=== PATIENT | male | born 1950 | race Caucasian/White ===

== ENCOUNTER 2017-01-02 13:27 | Emergency (ER) | payer OTHER ==
[~2017-01-02] VITALS: Ht 188 cm; Wt 77.3 kg
[~2017-01-02 13:27] MED LIST: ALAVERT10 MG PO; ANTIVERT OR; ANTIVERT PO; ATENOLOL25 MG OR; AUGMENTIN875TAB PO; B-121000 MC1 PO; BENADRYL 50MG C50 MG OR; CAPOTEN25 MG OR; CAPOTEN50 MG PO; CEPHALEXIN500 MG OR; COLACE50 MG PO; CORTISPORIN OP7.5 ML OP; CYCLOBENZAPR10 MG PO; DILAUDID 2MG2 MG/TA1 PO; DILAUDID4 MG PO; DILTIAZEM30 MG PO; FIORICET OR; KLOR-CON M2020 MEQ PO; LORACET OR; LORCET PLUS1 TAB PO; LORTAB 10 OR; LORTAB 10 PO; LORTAB 7.57.5 MG OR; LORTAB 7.57.5 MG PO; MAG OXIDE420 MG OR; MAG-OX 400400 MG PO; MAGNESIUM30 M1 OR; PERCOCET 5/325M1 TAB OR; PERCOCET 5/325M1 TAB PO; PROMETHAZINE50 MG PO; PROTONIX40 M2 PO; SENNOSIDES8.6 M1 PO; TAM75CAP PO; TENORMIN25 MG OR; UNKNOWN MED; VALIUM5 MG OR; VALIUM5 MG PO; VICODIN HP1 TAB OR; VISTARIL50 MG OR; VISTARIL50 MG PO; ZESTRIL10 MG PO; ZITHROMAX250 MG PO
[2017-01-02 14:02] LABS: HEMATOCRIT 37.4 % (39.0-50.0); HEMOGLOBIN 12.1 g/dl (14.0-18.0); IMMATURE GRANULOCYTES 1.1 % (0.0-1.0); MEAN CELL VOLUME 87.6 fL CALC (80.0-100.0); MEAN CORPUSCULAR HGB 28.3 pG CALC (26.0-32.0); MEAN CORPUSCULAR HGB CONC 32.4 g/L CALC (32.0-36.0); NEUT# 3.6 thou/uL (1.82-7.42); RED BLOOD COUNT 4.27 mill/uL (4.70-6.10)
[2017-01-02 14:19] LABS: ALKALINE PHOSPHATASE 72 u/l (38-126); ANION GAP 15 (6-22 (CALC)); BILIRUBIN, TOTAL 0.7 mg/dL (0.0-1.4); BUN 9 mg/dL (8-23); BUN/CREATININE RATIO 11 (12-20 (CALC)); CALCIUM 9.5 mg/dL (8.4-10.2); CARBON DIOXIDE 27 mmol/l (22-30); CHLORIDE 105 mmol/l (95-108); CREATININE 0.8 mg/dL (0.7-1.3); GFR > 60 ML/MIN (>=60 (CALC)); GFR FOR AFR.AMER. > 60 ML/MIN (>=60 (CALC)); GLUCOSE 85 mg/dL (82-115); POTASSIUM 4.4 mmol/l (3.5-5.1); SGOT/AST 18 u/l (19-48); SGPT/ALT 30 u/l (11-66); SODIUM 142 mmol/l (137-146); TOTAL PROTEIN 6.7 g/dL (6.3-8.2)
[2017-01-02 14:30] LABS: MYOGLOBIN 113 ng/mL (0 - 121)
[2017-01-02 15:32] LABS: URINE BILIRUBIN - DIPSTICK NEGATIVE (NEGATIVE); URINE BLOOD DIPSTICK NEGATIVE (NEGATIVE); URINE CLARITY CLEAR; URINE COLOR YELLOW; URINE GLUCOSE - DIPSTICK NEGATIVE (NEGATIVE); URINE KETONE NEGATIVE (NEGATIVE); URINE LEUK ESTERASE NEGATIVE (NEGATIVE); URINE NITRITE - DIPSTICK NEGATIVE (Negative); URINE PH 5.5 (4.5-8.0); URINE PROTEIN - DIPSTICK NEGATIVE (NEG-TRACE); URINE SPECIFIC GRAVITY 1.015; URINE UROBILINOGEN - DIPSTICK 0.2 E.U./dL (0.2)
[2017-01-02 15:34] LABS: BARBITURATES NEGATIVE (NEGATIVE); COCAINE NEGATIVE (NEGATIVE); METHADONE NEGATIVE (NEGATIVE); OXCYCODONE POSITIVE (NEGATIVE); TETRAHYDROCANNABIONOL NEGATIVE (NEGATIVE); TRICYLIC ANTIDEPRESSANTS NEGATIVE (NEGATIVE)
[2017-01-02 15:45] VITALS: BP 97/54
== END 2017-01-02 16:37 | disposition home or self-care (01) | DRG 103 ==
LOC: ED 13:27
PROVIDERS: Emergency Medicine
DX: R51 Headache (principal); G20 Parkinson's disease; R42 Dizziness and giddiness; R53.1 Weakness

== ENCOUNTER 2017-02-06 04:46 | Emergency (ER) | payer OTHER ==
[~2017-02-06] VITALS: Ht 188 cm; Wt 70.0 kg
[2017-02-06] MEDS ORDERED: LORCET HD 10-321 TAB PO (05:07)
[2017-02-06 05:17] LABS: HEMATOCRIT 36.7 % (39.0-50.0); HEMOGLOBIN 12.2 g/dl (14.0-18.0); IMMATURE GRANULOCYTES 0.5 % (0.0-1.0); MEAN CELL VOLUME 86.2 fL CALC (80.0-100.0); MEAN CORPUSCULAR HGB 28.6 pG CALC (26.0-32.0); MEAN CORPUSCULAR HGB CONC 33.2 g/L CALC (32.0-36.0); NEUT# 6.8 thou/uL (1.82-7.42); RED BLOOD COUNT 4.26 mill/uL (4.70-6.10); RED CELL DISTRI WIDTH 13.2 % (11.5-15.5)
[2017-02-06 05:33] LABS: ALBUMIN 4.2 g/dL (3.2-5.0); ALKALINE PHOSPHATASE 68 u/l (38-126); AMYLASE < 30 u/l (30-110); ANION GAP 16 (6-22 (CALC)); BUN 10 mg/dL (8-23); BUN/CREATININE RATIO 16 (12-20 (CALC)); CARBON DIOXIDE 26 mmol/l (22-30); CHLORIDE 101 mmol/l (95-108); CREATININE 0.6 mg/dL (0.7-1.3); GFR > 60 ML/MIN (>=60 (CALC)); GFR FOR AFR.AMER. > 60 ML/MIN (>=60 (CALC)); GLUCOSE 135 mg/dL (82-115); LIPASE 40 u/l (23-300); POTASSIUM 3.8 mmol/l (3.5-5.1); SGOT/AST 21 u/l (19-48); SGPT/ALT 30 u/l (11-66); SODIUM 140 mmol/l (137-146); TOTAL PROTEIN 6.6 g/dL (6.3-8.2)
[2017-02-06 05:44] LABS: MYOGLOBIN 78 ng/mL (0 - 121)
[2017-02-06] MEDS ORDERED: [UNRECOGNIZED DRUG - REMARK] PO (06:22)
[2017-02-06] MEDS ORDERED: PHENERGAN25 MG/TAB PO (08:29)
[2017-02-06 08:46] VITALS: BP 144/79
== END 2017-02-06 09:01 | disposition home or self-care (01) | DRG 103 ==
LOC: ED 04:46
PROVIDERS: Emergency Medicine
DX: R51 Headache (principal); R11.2 Nausea with vomiting, unspecified; Z98.890 Other specified postprocedural states; R94.31 Abnormal electrocardiogram [ECG] [EKG]

== ENCOUNTER 2017-07-25 11:49 | Inpatient (IN) | payer MEDICAID ==
[~2017-07-25] VITALS: Ht 188 cm; Wt 69.0 kg
[~2017-07-25 11:49] MED LIST changes: +LORCET HD 10-321 TAB PO; +PHENERGAN25 MG/TAB PO; +[UNRECOGNIZED DRUG - REMARK] PO
--- NOTE | 2017-07-25 11:56 | NUR ---
PT TO ROOM 14 VIA EMS.
[2017-07-25 12:37] LABS: HEMATOCRIT 36.7 % (39.0-50.0); HEMOGLOBIN 11.9 g/dl (14.0-18.0); IMMATURE GRANULOCYTES 0.3 % (0.0-1.0); MEAN CELL VOLUME 87.6 fL CALC (80.0-100.0); MEAN CORPUSCULAR HGB 28.4 pG CALC (26.0-32.0); MEAN CORPUSCULAR HGB CONC 32.4 g/L CALC (32.0-36.0); NEUT# 4.01 thou/uL (1.82-7.42); RED BLOOD COUNT 4.19 mill/uL (4.70-6.10); RED CELL DISTRI WIDTH 13.9 % (11.5-15.5)
[2017-07-25 12:47] LABS: ALBUMIN 3.6 g/dL (3.2-5.0); ALKALINE PHOSPHATASE 79 u/l (38-126); ANION GAP 16 (6-22 (CALC)); BILIRUBIN, TOTAL 0.9 mg/dL (0.0-1.4); BUN 11 mg/dL (8-23); BUN/CREATININE RATIO 20 (12-20 (CALC)); CARBON DIOXIDE 27 mmol/l (22-30); CHLORIDE 103 mmol/l (95-108); CREATININE 0.6 mg/dL (0.7-1.3); GFR > 60 ML/MIN (>=60 (CALC)); GFR FOR AFR.AMER. > 60 ML/MIN (>=60 (CALC)); GLUCOSE 114 mg/dL (82-115); POTASSIUM 4.1 mmol/l (3.5-5.1); SGOT/AST 16 u/l (19-48); SGPT/ALT 26 u/l (11-66); SODIUM 142 mmol/l (137-146); TOTAL PROTEIN 6.3 g/dL (6.3-8.2)
[2017-07-25 12:58] LABS: MYOGLOBIN 47 ng/mL (0 - 121)
[2017-07-25] MEDS ORDERED: HYDROXYZ PAM25 MG PO (14:27)
[2017-07-25] MEDS ORDERED: ROPINIROLE0.5 MG PO (14:30)
[2017-07-25 16:04] LABS: URINE BILIRUBIN - DIPSTICK NEGATIVE (NEGATIVE); URINE BLOOD DIPSTICK NEGATIVE (NEGATIVE); URINE COLOR YELLOW; URINE GLUCOSE - DIPSTICK NEGATIVE (NEGATIVE); URINE KETONE TRACE mg/dL (NEGATIVE); URINE LEUK ESTERASE NEGATIVE (NEGATIVE); URINE NITRITE - DIPSTICK NEGATIVE (Negative); URINE PROTEIN - DIPSTICK NEGATIVE (NEG-TRACE); URINE SPECIFIC GRAVITY 1.015; URINE UROBILINOGEN - DIPSTICK 0.2 E.U./dL (0.2)
[2017-07-25 16:12] LABS: URINE CLARITY CLEAR
--- NOTE | 2017-07-25 16:25 | NUR ---
SBAR PRINTED TO FLOOR
[2017-07-25 17:12] VITALS: BP 118/68
--- NOTE | 2017-07-25 17:17 | NUR ---
PT TAKEN TO ROOM 282 WITHOUT INCIDENT, REPORT WAS TO BARBI MORAN.
--- NOTE | 2017-07-25 17:19 | NUR ---
PT ARRIVED VIA STRETCHER ACCOMPANIED BY STAFF. PEG TUBE IN PLACE. IV SITE IN PLACE SKIN TEAR ON RAC . COVERED WITH OPSITE. PT TOLERATED WWLL.
--- NOTE | 2017-07-25 17:25 | NUR ---
ME [phone]
--- NOTE | 2017-07-25 17:30 | NUR ---
ASSESSMENT IS COMPLETED: PT HAS A SKIN TEAR ON RAC COVERED WITH TEGEDERM. IV SITE IN RH. PEG TUBE IN PLACE. SMALL ECCYMOTIC SPOTS ON SKIN. WAS JUST DISCHARGED FROM [facility] YESTERDAY WITH NEW TUBE FEEDING. PT STATES" THE 2 MACHINES I HAD AT HOME DOESNT WORK RIGHT ". CONTINUE TO OSBERVE AND MONITOR.
[2017-07-25 19:50] VITALS: BP 107/67
--- NOTE | 2017-07-25 20:50 | NUR ---
PT RESTING IN BED COMPLAINING OF RIGHT FOOT AND HEAD PAIN,REQUESTING PAIN MEDICATION;PT MEDICATED WITH 2MG OF MORPHINE IVP FOR PAIN RATING 9/10 ON THE PAIN SCALE;RESPIRATIONS EVEN AND UNLABORED ON RA;SEIZURE PRECAUTIONS IN PLACE;EMS #22G TO RIGHT HAND FLUSHED AND PATENT;PEG TUBE PATENT WITH CONTINUIOUS FEEDING INFUSING @ 85ML/HR;PT TOLERATING WELL;SKIN INTACT;PT A&O X3;RESPIRATIONS EVEN AND UNLABORED ON RA;SAFETY PRECAUTIONS REINFORCED;PT DENIES ANY OTHER NEEDS AT THIS TIME;CALL LIGHT IN REACH;WILL CONTINUE TO MONITOR
[2017-07-25 23:20] VITALS: BP 116/70
--- NOTE | 2017-07-26 01:08 | NUR ---
PT COMPLAINS OF PAIN TO RIGHT FOOT RATING 8/10 ON THE PAIN SCALE AND REQUESTS PAIN MEDICATION;PT MEDICATED WITH PRN MORPHINE 2MG IVP;LR INFUSING @ 100ML/HR WELL;PEG TUBE IN PLACE;PT RE-POSITIONED IN BED FOR COMFORT;CALL LIGHT IN REACH;WILL CONTINUE TO MONITOR
--- NOTE | 2017-07-26 04:40 | NUR ---
PT RESTING IN HIGH FOWLERS POSITION;NO S/S OF DISTRESS NOTED;PEG TUBE IN PLACE WITH CONTINUOUS FEEDING RUNNING AT 85ML/HR;FALL PRECAUTIONS IN PLACE;WILL CONTINUE TO MONITOR
[2017-07-26 04:41] VITALS: BP 105/64
--- NOTE | 2017-07-26 06:08 | NUR ---
PT COMPLAINS OF HEADACHE PAIN RATING 9/10 ON THE PAIN SCALE AND REQUESTS PAIN MEDICATION;MD TO BE NOTIFIED
--- NOTE | 2017-07-26 07:27 | NUR ---
SHIFT CHANGE REPORT FROM FABIOLA PT AWAKE AND ALERT, C/O ACHING HEADACHE @ 9, ASSISTED WITH BR PREVILAGES AND BACK TO BED, PEG TUBE IN PLACE WITH JEVITY INFUSING @ 85 ML/HR & 30 ML FLUSH Q4 HR, IVF INFUSING @ 100 ML PER HR, ALL NEEDS ADDRESSED, CALL TOLBERT IN REACH.
[2017-07-26 08:57] VITALS: BP 119/64
--- NOTE | 2017-07-26 09:44 | NUR ---
AT 0715 PT C/O GENERALISED BODY PAIN (HEAD, SHOULDERS, LEGS). ULTRAM WAS ORDERED BUT PT STATED HE DOES NOT THAT MED IT WILL MAKE HIM SICK, WHEN ASKED WHAT MED HE WOULD RATHER HAVE HE REPORTED HYDROCODONE 10MG DOSE. ASSISTANT CREDIT MANAGER NOTIFIED AND WILL REVIEW MEDS. PT OFFERED COLD COMPRESS BUT REFUSED AND ASKED TO HAVE THE ULTRAM. PT APPEARS DEPRESSED AND DEMOTIVATED, VERY NEEDY, ADVISED TO HELP SELF AND GIVEN OPPORTUNITY TO ASSIST WITH CARE. WILL CONTINUE TO MONITOR.
[2017-07-26 09:57] LABS: HEMATOCRIT 33.2 % (39.0-50.0); HEMOGLOBIN 10.6 g/dl (14.0-18.0); IMMATURE GRANULOCYTES 0.2 % (0.0-1.0); MEAN CELL VOLUME 89.7 fL CALC (80.0-100.0); MEAN CORPUSCULAR HGB 28.6 pG CALC (26.0-32.0); MEAN CORPUSCULAR HGB CONC 31.9 g/L CALC (32.0-36.0); NEUT# 2.88 thou/uL (1.82-7.42); RED BLOOD COUNT 3.7 mill/uL (4.70-6.10)
[2017-07-26 10:41] LABS: ANION GAP 13 (6-22 (CALC)); BUN 13 mg/dL (8-23); BUN/CREATININE RATIO 23 (12-20 (CALC)); CALCIUM 8.8 mg/dL (8.4-10.2); CARBON DIOXIDE 30 mmol/l (22-30); CHLORIDE 102 mmol/l (95-108); CREATININE 0.6 mg/dL (0.7-1.3); GFR > 60 ML/MIN (>=60 (CALC)); GFR FOR AFR.AMER. > 60 ML/MIN (>=60 (CALC)); GLUCOSE 97 mg/dL (82-115); MAGNESIUM 1.7 mg/dL (1.6-2.3); POTASSIUM 4.2 mmol/l (3.5-5.1); SODIUM 141 mmol/l (137-146)
--- NOTE | 2017-07-26 12:34 | NUR ---
ASSISTED WITH URINAL AND BACK TO BED, FEEDING & FLUSH BAGS CHANGED. PT STILL REQUESTING HYDROCODONE 10MG AND INFORMED MEDICAL STAFF ARE REVIEWING MEDS AT THIS TIME AND WILL ADDRESS CONCERNS.
--- NOTE | 2017-07-26 15:52 | NUR ---
ALL NEEDS ADDRESSED, PAIN CONTROLLED WITH LORTAB, RESTING IN BED, CALL TOLBERT IN REACH.
[2017-07-26 16:10] VITALS: BP 111/63
--- NOTE | 2017-07-26 18:23 | NUR ---
TEAR TO RAC WITH OPSITE DRESING AND BLOODY DRAINAGE TRAPPED, PT REPORTED HAD TAPE DRESSING WHICH WAS PARTIALLY HANGING AND ED NURSE YANKED OFF WHICH RESULTED IN TEAR. DRESSING REMOVED AT THIS TIME, WOUND CLEANED AND NEW DRESSING APPLIED.
[2017-07-26 18:50] VITALS: BP 111/64
--- NOTE | 2017-07-26 20:25 | NUR ---
PT RESTING IN SEMI FOWLERS POSITION;PT COMPLAINS OF GENERALIZED PAIN RATING 6/10 ON THE PAIN SCALE;PT EDUCATED ON PAIN MEDICATION SCHEDULED AND VERBALIZES UNDERSTANDING;ASSESSMENT COMPLETED;PT VOIDED 300CC OF CLEAR/YELLOW URINE;PT RE-POSITIONED INTO BED;SEIZURE PRECAUTIONS IN PLACE;EMS #22G TO LEFT HAND INFUSING LR @ 100ML/HR WELL;PT EDUCATED ON EMS SITE EXPIRATION DATE AND REFUSES SITE CHANGE AT THIS TIME STATING "IT WORKS DOESNT IT?";DRESSING TO RIGHT FOREARM CDI;PEG TUBE PATENT WITH JEVITY INFUSING @ 65ML/HR,PT TOLERATING WELL;PT DENIES ANY OTHER NEEDS AT THIS TIME;FALL PRECAUTIONS IN PLACE WITH CALL LIGHT IN REACH;WILL CONTINUE TO MONITOR
--- NOTE | 2017-07-26 22:15 | NUR ---
PT REQUESTS PAIN MEDICATION;UPON ENTERING THE ROOM PT IS ASLEEP;WILL CONTINUE TO MONITOR
--- NOTE | 2017-07-26 22:30 | NUR ---
PT MEDICATED WITH PRN LORTAB FOR GENERALIZED PAIN RATING 9/10 ON THE PAIN SCALE;PT RE-POSITIONED IN BED;WILL CONTINUE TO MONITOR FOR EFFECT
[2017-07-27] VITALS: BP 110/56
--- NOTE | 2017-07-27 | NUR ---
INITIAL TELE READING PER ORDER OF SB 59
--- NOTE | 2017-07-27 00:35 | NUR ---
PT APPEARS TO BE SLEEPING IN SEMI FOWLERS POSITION;NO S/S OF DISTRESS NOTED;RESPIRATIONS EVEN AND UNLABORED ON RA;IV FLUIDS INFUSING WELL TO RIGHT HAND;PEG TUBE PATENT AND INFUSING WELL AT 65ML/HR;FALL PRECAUTIONS IN PLACE WITH CALL LIGHT IN REACH;WILL CONTINUE TO MONITOR
[2017-07-27 03:40] VITALS: BP 110/66; BP 117/61
--- NOTE | 2017-07-27 03:40 | NUR ---
PT REQUESTING PAIN MEDICATION FOR GENERALIZED PAIN OF THE HEAD,LEGS AND BACK RATING 8/10 ON THE PAIN SCALE;PT MEDICATED WITH PRN LORTAB 1 COMBO;TELE MONITOR IN PLACE;RESPIRATIONS EVEN AND UNLABORED ON RA;PT TOLERATING CONTINUOUS TUBE FEEDING WELL;IV SITE PATENT AND FREE FROM EDEMA;PT DENIES ANY OTHER NEEDS AT THIS TIME AND IS EDUCATED TO CALL FOR ASSISTANCE IF NEEDED;CALL LIGHT IN REACH;WILL CONTINUE TO MONITOR
[2017-07-27 07:11] VITALS: BP 100/60
--- NOTE | 2017-07-27 07:45 | NUR ---
ASSESSMENT IS COMPLETED: IV SITE IS FREE FROM REDNESS OR EDEMA. TELE MONITOR IN PLACE. TUBE FEEDING IN PLACE AND INFUSING WELL FLUSHES WELL WITH WATER. CONTINUE TO OBSERVE AND MONITOR.
--- NOTE | 2017-07-27 12:00 | NUR ---
PT IS RELAXING IN BED WITH NO DISTRESS NOTED. IV SITE IS FREE FROM REDNESS OR EDEMA.
--- NOTE | 2017-07-27 16:00 | NUR ---
pt is relaxing in bed with no distress noted. iv site is free from redness or edema. feeding tube in place jevity infusing. pt tolerating well. continue to observe and monitor.
[2017-07-27 16:47] VITALS: BP 105/65
[2017-07-27 19:30] VITALS: BP 102/62
--- NOTE | 2017-07-27 20:30 | NUR ---
PT RESTING IN SEMI FOWLERS POSITION WATCHING TV;PT COMPLAINS OF GENERALIZED PAIN TO THE HEAD AND FEET RATING 6/10 ON THE PAIN SCALE AND REQUESTS PRN PAIN MEDICATION;PT MEDICATED WITH PRN ULTRAM;RESPIRATIONS EVEN AND UNLABORED ON RA;EMS #22G TO RIGHT HAND INFUSING LR @ 100ML/HR;PT RE-EDUCATED TO IV SITE EXPIRATION DATE AND REFUSES CHANGE;TELE MONITOR IN PLACE;DRESSING TO RIGHT FOREARM CDI;PEG TUBE PATENT INFUSING JEVITY @ 65ML/HR,PT TOLERATING WELL;SEIZURE PRECAUTIONS IN PLACE;PT VOICES NO OTHER NEEDS AT THIS TIME;URINAL AT BEDSIDE;FALL PRECAUTIONS IN PLACE WITH CALL LIGHT IN REACH;WILL CONTINUE TO MONITOR
--- NOTE | 2017-07-28 00:05 | NUR ---
PT RESTING IN SEMI FOWLERS POSITION;PT VOICES NO COMPLAINTS OF PAIN AT THIS TIME;RESPIRATIONS EVEN AND UNLABORED ON RA;IV FLUIDS INFUSING WELL TO RIGHT HAND;PEG TUBE PATENT RUNNING CONTINUOUSLY AT 65ML/HR,PT TOLERATING WELL;PT EDUCATED TO CALL FOR ASSISTANCE IF NEEDED;ADDITIONAL BLANKET PROVIDED;CALL LIGHT IN REACH;WILL CONTINUE TO MONITOR
[2017-07-28 00:08] VITALS: BP 103/61
--- NOTE | 2017-07-28 01:40 | NUR ---
PT COMPLAINS OF GENERALIZED PAIN RATING 8/10 ON THE PAIN SCALE AND REQUESTS PAIN MEDICATION;PT MEDICATED WITH PRN LORTAB;WILL CONTINUE TO MONITOR
--- NOTE | 2017-07-28 04:00 | NUR ---
PT RESTING IN SEMI FOWLERS POSITION;URINAL EMPTIED OF 100CC OF CLEAR/YELLOW URINE;RESPIRATIONS EVEN AND UNLABORED;VS OBTAINED;PT VOICES NO COMPLAINTS AT THIS TIME;PEG TUBE FEEDING INFUSING WELL;TELE MONITOR IN PLACE;CALL LIGHT IN REACH;WILL CONTINUE TO MONITOR
[2017-07-28 04:01] VITALS: BP 96/52
--- NOTE | 2017-07-28 05:40 | NUR ---
PT HAD AN EPISODE OF INCONTINENCE;NEW LIN[facility] AND [facility] PROVIDED;PT COMPLAINS OF GENERALIZED PAIN RATING 7/10 ON THE PAIN SCALE AND REQUESTS PAIN MEDICATION;PT MEDICATED WITH PRN ULTRAM 50MG;DRESSING TO IV SITE CHANGED AT THIS TIME;PT RE-POSITIONED IN BED;PEG TUBE INFUSING JEVITY WELL;HOB IN SEMI FOWLERS POSITION;PT DENIES ANY OTHER NEEDS AT THIS TIME;WILL CONTINUE TO MONITOR
[2017-07-28 06:03] LABS: HEMATOCRIT 31.2 % (39.0-50.0); HEMOGLOBIN 9.8 g/dl (14.0-18.0); IMMATURE GRANULOCYTES 0.3 % (0.0-1.0); MEAN CELL VOLUME 89.1 fL CALC (80.0-100.0); MEAN CORPUSCULAR HGB CONC 31.4 g/L CALC (32.0-36.0); NEUT# 1.67 thou/uL (1.82-7.42); RED BLOOD COUNT 3.5 mill/uL (4.70-6.10); RED CELL DISTRI WIDTH 13.8 % (11.5-15.5)
[2017-07-28 06:17] LABS: ANION GAP 11 (6-22 (CALC)); BUN 13 mg/dL (8-23); BUN/CREATININE RATIO 22 (12-20 (CALC)); CALCIUM 8.5 mg/dL (8.4-10.2); CARBON DIOXIDE 31 mmol/l (22-30); CHLORIDE 104 mmol/l (95-108); CREATININE 0.6 mg/dL (0.7-1.3); GFR > 60 ML/MIN (>=60 (CALC)); GFR FOR AFR.AMER. > 60 ML/MIN (>=60 (CALC)); GLUCOSE 108 mg/dL (82-115); MAGNESIUM 1.7 mg/dL (1.6-2.3); POTASSIUM 4.3 mmol/l (3.5-5.1); SODIUM 142 mmol/l (137-146)
--- NOTE | 2017-07-28 07:23 | NUR ---
SHIFT CHANGE REPORT FROM FABIOLA, PT AWAKE AND ALERT, HAS MANY NEEDS WHICH HAVE ALL BEEN ADDRESSED, IVF INFUSING, GI FEED INFUSING, CALL TOLBERT IN REACH.
[2017-07-28 07:52] VITALS: BP 104/56
--- NOTE | 2017-07-28 11:03 | NUR ---
ASSISTED WITH BED BATH AND UP TO RECLINER AT THIS TIME, ALL NEEDS ADDRESSED, CALL TOLBERT IN REACH.
[2017-07-28 11:37] VITALS: BP 99/57
[2017-07-28 15:22] VITALS: BP 117/69
--- NOTE | 2017-07-28 16:21 | NUR ---
ASSISTED TO BSC AT THIS TIME, PAIN CONCERNS ADDRESSED, CALL TOLBERT IN REACH.
--- NOTE | 2017-07-28 17:18 | NUR ---
ASSISTED TO RECLINER FROM BSC, PT WANTS TO STAY IN BED ALL DAY AND IS NEEDY AND DEMOTIVATED, ENCOURAGED TO SIT UP FOR A WHILE AND INFORMED OF BENEFITS OF GETTING OOB, CALL TOLBERT IN REACH.
[2017-07-28 19:05] VITALS: BP 107/66
--- NOTE | 2017-07-28 19:15 | NUR ---
PT RESTING IN BED. VISITORS IN ROOM. PT IS ALERT AND ORIENTED X3. PERRLA. RESP ARE EVEN AND UNLABORED LUNGS ARE CLEAR. TELE IN PLACE. HR REGULAR. PULSES PALPABLE THROUGHOUT. MINIMAL EDEMA TO RIGHT ANKLE NOTED. BS ACTIVE. PT DENIES A BM. PEG TUB TO LEFT SIDE OF ABDOMEN INFUSING JEVITY 1.5@ 65CC/HR. #22 RAC INFUSING LR 2100CC/HR. NO REDNESS OR EDEMA NOTED AT SITE. WILL CONTINUE TO MONITOR.
--- NOTE | 2017-07-29 | NUR ---
PT RESTING IN BED WITH EYES CLOSED. AROUSES TO VERBAL STIMULI. RESP ARE EVEN AN UNLABORED. TELE IN PLACE. JEVITY INFUSING @65CC/HR. NO COMPLAINTS AT THIS TIME. WILL CONTINUE TO MONITOR
[2017-07-29 00:28] VITALS: BP 93/60
--- NOTE | 2017-07-29 04:06 | NUR ---
PT RESTING IN BED WITH EYES CLOSED. AROUSES TO VERBAL STIMULI. RESP ARE EVEN AND UNLABORED. TELE IN PLACE. JEVITY 1.5 INFUSING AT 65ML/HR. NO COMPLAINTS AT THIS TIME. WILL CONTINUE TO MONITOR.
[2017-07-29 04:15] VITALS: BP 99/58
--- NOTE | 2017-07-29 07:40 | NUR ---
SHIFT CHANGE REPORT FROM LEO, PT AWAKE AND ALERT, C/O ITCHY BACK, WHEN ASSESSED LINHAYLIEN WAS WET, PT WAS ASSISTED OOB FOR AM CARE, SET-UP FOR ORAL CARE, ALL NEEDS ADDRESSED, CALL TOLBERT IN REACH.
[2017-07-29 07:53] VITALS: BP 93/55
[2017-07-29 11:04] VITALS: BP 97/59
--- NOTE | 2017-07-29 11:35 | NUR ---
ASSISTED BACK TO BED AND RESTING, C/O HEADACHE @ 05/15 BUT REFUSED COOL COMPRESS, REPOSITIONED, WILL CONTINUE TO MONITOR.
[2017-07-29 15:24] VITALS: BP 90/55
--- NOTE | 2017-07-29 16:57 | NUR ---
RESTING IN BED AT THIS TIME, STATES HE HAS NOT BEEN FEELING WELL ALL DAY WHEN ENCOURAGED TO GET OOB AND SIT UP IN RECLINER FOR COUPLE HOURS. PT INFORMED AGAING OF BENEFITS OF GETTING UP AND HELPING SELF BUT HE JUST WANTS TO STAY IN BED CONTINUOUSLY AND HAVE SOMEONE ELSE PERFORM ALL ADLS EVEN IF HE IS ABLE TO DO THEM BY HIMSELF. WILL CONTINUE TO ENCOURAGE/EDUCATE EVEN IN FUTILITY.
[2017-07-29 19:05] VITALS: BP 98/64
--- NOTE | 2017-07-29 19:30 | NUR ---
PT SITTING UP IN BED TALKING ON PHONE. PT IS ALERT AND ORIENTED X3. PERRLA. RESP ARE EVEN AND UNLABORED. LUNGS ARE CLEAR. TELE IN PLACE. HR REGULAR. PULSES PALPABLE THROUGHOUT. NO EDEMA NOTED. BS ACTIVE. PT DENIES HAVING A BM TODAY. PEG TUBE IN PLACE INFUSING JEVITY 1.5 @65CC/HR. #22 RAC INFUSING LR @10CC/HR. NO REDNESS OR EDEMA NOTED AT SITE. PT STATES THAT HE IS HAVING PAIN. WILL MEDICATE PER MD ORDERS. WILL CONTINUE TO MONITOR
--- NOTE | 2017-07-29 22:26 | NUR ---
PT STATES THAT HE WANTS PAIN MEDICATION AGAIN. INFORMED PT THAT THE MEDICATION WAS NOT DUE AT THIS TIME. WILL CONTINUE TO MONITOR
--- NOTE | 2017-07-29 23:15 | NUR ---
PT REQUESTING PAIN MEDICATION. TRAMADOL OFFERRED. PT STATES THAT HE NEEDS THE LORTAB. EXPLAINED THAT IT WAS NOT TIME YET FOR LORTAB. WILL MEDICATE WHEN TIME. PT VERBALIZED UNDERSTANDING.
--- NOTE | 2017-07-30 00:14 | NUR ---
PT MEDICATED FOR PAIN. PT AWAKE WATCHING TV. RESP ARE EVEN AND UNLABORED. TELE IN PLACE. PT REFUSES TO USE BUTTONS ON BED TO LET HEAD OF BED DOWN AND UP. INSTRUCTED PT THAT HE IS ABLE TO DO THAT HIMSELF. PT CONTINUE TO REFUSE. WILL CONTINUE TO MONITOR
--- NOTE | 2017-07-30 03:38 | NUR ---
PT CONTINUES TO ASK FOR PAIN MEDICATION. WHEN I EXPLAINED THAT THERE WAS ANOTHER HOUR BEFORE LORTAB WAS DUE HE BEGAN TO CURSE. I AGAIN OFFERRED TRAMADOL. PT REFUSED.
[2017-07-30 04:14] VITALS: BP 86/52
--- NOTE | 2017-07-30 04:15 | NUR ---
MEDICATED PT FOR PAIN. PT WAS SLEEPING UPON ARRIVAL TO ROOM. AROUSED TO VERBAL STIMULI. RESP ARE EVEN AND UNLABORED. TELE IN PLACE. WILL CONTIUE TO MONITOR
--- NOTE | 2017-07-30 07:00 | NUR ---
RECEIVED BEDSIDE REPORT FROM LEO YANG. RESTING IN BED WITH EYES CLOSED, AWAKENS EASILY. RESPS EVEN AND UNLABORED ON ROOM AIR, TELE MONITOR IN PLACE. PEG TUBE PATENT, INFUSING JEVITY AT 65 CC/HR WITH 30 CC Q4HR FLUSH, DRESSING CDI. #22 RAC INFUSING WITHOUT DIFFICULTY, SITE APPEARS HEALTHY. REQUESTS PAIN MEDICINE FOR PAIN, BC MEDICATE PER MAR. PLAN OF CARE DISCUSSED. SAFETY PRECAUTIONS REINFORCED. BED IN LOWEST POSITION WITH WHEELS LOCKED. CALL LIGHT WITHIN REACH. ENCOURAGED PT TO CALL FOR ANY NEEDS.
[2017-07-30 08:44] VITALS: BP 98/53
--- NOTE | 2017-07-30 08:45 | NUR ---
RESTING IN SEMI FOWLERS POSITION. RESPS EVEN AND UNLABORED ON ROOM AIR, TELE MONITOR IN PLACE. PEG TUBE PATENT, JEVITY 1.5 INFUSING AT 65 CC/HR WITH Q4 HR 300CC FLUSHES. MEDICATED WITH LORTAB PO FOR C/O 9/10 HEADACHE. CALL LIGHT WITHIN REACH. ENCOURAGED PT TO CALL FOR ANY NEEDS.
--- NOTE | 2017-07-30 12:15 | NUR ---
DR HARMAN IN WITH PT, NEW ORDERS RECEIVED.
--- NOTE | 2017-07-30 12:35 | NUR ---
MEDIATED WITH LORTAB VIA PEG FOR C/O 910 HEADACHE. RESTING IN BED WITH HEAD ELEVATED. RESPS EVEN AND UNLABORED ON ROOM IAR, TELE MONITOR IN PLACE. WILL CONTINUE TO MONITOR.
[2017-07-30 13:05] VITALS: BP 100/57
[2017-07-30 15:56] VITALS: BP 87/53
--- NOTE | 2017-07-30 16:12 | NUR ---
RESTING IN BED WITH HOB ELEVATED. RESPS EVEN AND UNLABORED ON ROOM AIR, TELE MONITOR IN PLACE. VOICES NO NEEDS AT THIS TIME. CALL LIGHT WITHIN REACH.
--- NOTE | 2017-07-30 17:15 | NUR ---
MEDICATED WITH LORTAB VIA PEG TUBE FOR C/O 9 HEADACHE. PEG TUBE 30 CC RESIDUAL. PT TOLERATED WELL. CALL LIGHT WITHIN REACH.
--- NOTE | 2017-07-30 19:00 | NUR ---
PT SITTING UP IN BED TALKING ON THE PHONE. PT IS ALERT AND ORIENTED X3. PERRLA. PT STATES THAT HE IS HAVING PAIN. INFORMED PT THAT PAIN MEDICINE IS NOT DUE UNTIL 2114. PT VERBALIZED UNDERSTANDING. LUNGS ARE CLEAR. RESP ARE EVEN AND UNLABORED. TELE IN PLACE. HR REGULAR. PULSES PALPABLE THROUGHOUT. NO EDEMA NOTED. BS ACTIVE. PT DENIES A BM TODAY. JEVITY 1.2 INFUSING VIA PEG TUBE. REFILLED BAG. #22 RAC WITH LR @10CC/HR INFUSING. NO REDNESS OR EDEMA AT SITE. WILL CONTINUE TO MONITOR
[2017-07-30 19:07] VITALS: BP 96/57
--- NOTE | 2017-07-31 00:01 | NUR ---
PT RESTING IN BED WITH EYES CLOSED. AROUSES TO VERBAL STIMULI. RESP ARE EVEN AND UNLABORED. PT REQUESTS PAIN MEDICATION. INFORMED PT THAT IT IS TOO SOON FOR PAIN MEDICATION. WILL CONTINUE TO MONITOR
[2017-07-31 00:15] VITALS: BP 95/61
--- NOTE | 2017-07-31 01:00 | NUR ---
PT CALLED FOR PAIN MEDICATION. PT MEDICATED. PT STATES THAT PAIN IS A 9/10 IN HIS HEAD, BUT FEELS THAT THE MEDICATION IS NOT GIVING HIM LONG ENOUGH RELIEF. INSTRUCTED PT TO DISCUSS THIS WITH PHYSICIAN IN THE MORNING.
--- NOTE | 2017-07-31 04:00 | NUR ---
PT RESTING IN BED WITH EYES CLOSED. AROUSES TO VERBAL STIMULI.RESP ARE EVEN AND UNLABORED. PT CONTINUES TO REQUEST PAIN MEDICATION. INFORMED PT THAT IT WOULD STILL BE ANOTHER HOURS UNTIL DUE. TELE IN PLACE WILL CONTINUE TO MONITOR.
[2017-07-31 04:15] VITALS: BP 94/60
--- NOTE | 2017-07-31 06:10 | NUR ---
PT HAD LARGE BOWEL MOVEMENT.
[2017-07-31 06:31] LABS: HEMATOCRIT 34.6 % (39.0-50.0); HEMOGLOBIN 10.9 g/dl (14.0-18.0); MEAN CELL VOLUME 88.7 fL CALC (80.0-100.0); MEAN CORPUSCULAR HGB 27.9 pG CALC (26.0-32.0); MEAN CORPUSCULAR HGB CONC 31.5 g/L CALC (32.0-36.0); RED BLOOD COUNT 3.9 mill/uL (4.70-6.10); RED CELL DISTRI WIDTH 13.9 % (11.5-15.5)
[2017-07-31 06:47] LABS: ANION GAP 13 (6-22 (CALC)); BUN 18 mg/dL (8-23); BUN/CREATININE RATIO 29 (12-20 (CALC)); CALCIUM 8.9 mg/dL (8.4-10.2); CARBON DIOXIDE 30 mmol/l (22-30); CHLORIDE 103 mmol/l (95-108); CREATININE 0.6 mg/dL (0.7-1.3); GFR > 60 ML/MIN (>=60 (CALC)); GFR FOR AFR.AMER. > 60 ML/MIN (>=60 (CALC)); GLUCOSE 114 mg/dL (82-115); POTASSIUM 4.2 mmol/l (3.5-5.1); SODIUM 141 mmol/l (137-146)
--- NOTE | 2017-07-31 07:00 | NUR ---
RECEIVED BEDSIDE REPORT FROM LEO YANG. RESTING IN BED WITH HOB ELEVATED. RESPS EVEN AND UNLABORED ON ROOM AIR, TELE MONITOR IN PLACE. JEVITY INFUSING VIA PEG TUBE AT 65CC/HR WITH FLUSHES Q4HR AT 30CC/HR. VOICES NO NEEDS AT THIS TIME. PLAN OF CARE DISCUSSED. SAFETY PRECAUTIONS REINFORCED. BED IN LOWEST POSITION WITH WHEELS LOCKED. CALL LIGHT WITHIN REACH. ENCOURAGED PT TO CALL FOR ANY NEEDS.
[2017-07-31 09:38] VITALS: BP 115/55
--- NOTE | 2017-07-31 09:45 | NUR ---
MEDICATED WITH LORTAB VIA PEG TUBE FOR C/O 6/10 HEADACHE. MINIMAL RESIDUAL ASPIRATED, PEG TUBE INFUSING JEVITY AT 65CC/HR WITH 30CC WATER FLUSH Q4HR. PT TOLERATED WELL. CALL LIGHT WITHIN REACH. WILL CONTINUE TO MONITOR.
[2017-07-31 11:22] VITALS: BP 102/60
--- NOTE | 2017-07-31 11:50 | NUR ---
SITTING IN BEDSIDE RECLINER. RESPS EVEN AND UNLABORED ON ROOM AIR, TELE MONITO RIN PLACE. DR HARMAN IN WITH PT, AWAITING NEW ORDERS . CALL LIGHT WITHIN REACH.
--- NOTE | 2017-07-31 14:00 | NUR ---
RESTING IN BED WITH HOB ELEVATED. RESPS EVEN AND UNLABORED ON ROOM AIR, TELE MONITOR IN PLACE. MEDICATED WITH LORTAB VIA PEG TUBE FOR C/O 10/10 HEADACHE. MINIMAL RESIDUAL FROM PEG TUBE, JEVITY INFUSING AT 65CC/HR WITH WATER FLUSH AT 30CC Q4HRS. FAMILY AT BEDSIDE. CALL LIGHT WITHIN REACH. WILL CONTINUE TO MONITOR.
[2017-07-31 15:44] VITALS: BP 111/66
--- NOTE | 2017-07-31 18:00 | NUR ---
MEDICATED WITH LORTAB VIA PEG TUBE, 20CC RESIDUAL. JEVITY RUNNING AT 65CC/HR WITH 30CC WATER FLUSH. HEAD OF BED ELEVATED. BILAT HEELS PROPPED ON PILLOWS, ELEVATING FEET OFF OF BED. CALL LIGHT WIHTIN REACH. WILL CONTINUE TO MONITOR.
--- NOTE | 2017-07-31 19:00 | NUR ---
PT SITTING UP IN BED WATCHING TV. PT IS ALERT AND ORIENTED X3. PERRLA. RESP ARE EVEN AND UNLABORED. LUNGS ARE CLEAR. TELE IN PLACE. HR REGULAR. PULSES PALPABLE THROUGHOUT. NO EDEMA NOTED. BS ACTIVE. PT REPORTS A BM TODAY. HEEL SLIGHTLY RED. HEEL PROTECTOS IN PLACE. INSTRUCTED PT TO NOT CROSS LEGS THAT INCREASES PRESSURE AND FRICTION.PT VERBALIZED UNDERSTANDING. PEG TUBE INFUSING JEVITY 1.2 @65ML/HR. #22 RAC WITH LR @10CC/HR INFUSING. NO REDNESS OR EDEMA NOTED. WILL CONTINUE TO MONITOR
[2017-07-31 19:10] VITALS: BP 104/59
--- NOTE | 2017-07-31 21:30 | NUR ---
[place] BAG CHANGES AND REFILLED. PAIN MEDS GIVEN. BATH GIVEN TO PT.
--- NOTE | 2017-08-01 | NUR ---
PT RESTING IN BED WITH EYES CLOSED. AROUSES TO VERBAL STIMULI. RESP ARE EVEN AND UNLABORED. PT REQUESTING HIS PAIN PILL. REINFORCED WITH PT THAT THE MEDICATION IS NOT DUE AT THIS TIME. TELE IN PLACE WILL CONTINUE TO MONITOR
[2017-08-01 00:08] VITALS: BP 97/59
--- NOTE | 2017-08-01 04:00 | NUR ---
PT RESTING IN BED WITH EYES CLOSED. AROUSES TO VERBAL STIMULI.RESP ARE EVEN AND UNLABORED. TELE IN PLACE. WILL CONTINUE TO MONITOR
[2017-08-01 04:18] VITALS: BP 110/65
--- NOTE | 2017-08-01 07:00 | NUR ---
RECEIVED BEDSIDE REPORT FROM LEO YANG. RESTING IN BED WITH HOB ELEVATED. RESPS EVEN AND UNLABORED ON ROOM AIR, TELE MONITOR IN PLACE. #22 RAC INFUSING WITHOUT DIFFICULTY, SITE APPEARS HEALTHY. JEVITY INFUSING AT 65CC/HR WITH 30CC WATER FLUSH Q4HR VIA PEG TUBE. HEEL PROTECTORS TO BILAT FEET ELEVATED ON PILLOWS. VOICES NO NEEDS AT THIS TIME. PLAN OF CARE DISCUSSED. SAFETY PRECAUTIONS REINFORCED. BED IN LOWEST POSITION WITH WHEELS LOCKED. CALL LIGHT WITHIN REACH. WILL CONTINUE TO MONITOR.
[2017-08-01 08:13] VITALS: BP 104/49
--- NOTE | 2017-08-01 09:55 | NUR ---
SITTING IN BEDSIDE CHAIR. RESPS EVEN AND UNLABORED ON ROOM AIR, TELE MONITOR IN PLACE. C/O /10 HEADACHE, MEDICATED WITH LORTAB VIA PEG TUBE. 20CC RESIDUAL, JEVITY INFUSING AT 65CC/HR WITH 30CC WATER FLUSHQ 4HR. FAMILY AT BEDSIDE. DR HARMAN IN WITH PT. CALL LIGHT WITHIN REACH. WILL CONTINUE TO MONITOR.
[2017-08-01 11:58] VITALS: BP 100/60
--- NOTE | 2017-08-01 14:00 | NUR ---
MEDIACTED WITH LORTAB VIA PEG TUBE FOR C/O 04/14 HEADACHE.
[2017-08-01 15:51] VITALS: BP 91/52
--- NOTE | 2017-08-01 16:46 | NUR ---
Talked to pt. about new medications. He had questions about some medications that he is currently on include ropinirole and diazepam. Told patient about ropinirole for his parkinson and counseling point for this medication. Told patient about the diazepam for his anxiety and counseled him possible side effects. Pt. reported that he does not experience any allergies from his current medications. He did not have any other questions at this time.
--- NOTE | 2017-08-01 18:00 | NUR ---
MEDICATED WITH LORTAB VIA PEG TUBE, 20CC RESIDUAL. JEVITY INFUSING AT 65CC/HR WITH 30CC WATER FLUSH Q4HRS. TOLERATED WELL. CALL LIGHT WITHIN REACH.
--- NOTE | 2017-08-01 19:00 | NUR ---
REPORT RECIEVED FROM TREY AGUERO. PT RESTING IN BED WATHCING TV. PT HAS NO COMPLAINTS OF PAIN AT THIS TIME. PEG TUBE PATENT. IV PATENT. SAFETY PRECAUTIONS REINFORCED. CALL LIGHT WITHIN REACH. WILL CONTINUE TO MONITOR.
[2017-08-01 20:30] VITALS: BP 110/55
--- NOTE | 2017-08-01 21:37 | NUR ---
PEG TUBE BAGS AND TUBING CHANGED AT THIS TIME. SCHEDULED MEDICATION GIVEN AT THIS TIME. VERIFIED TUBE PLACEMENT VIA AUSCULTATION 30CC OF AIR INSTILLED. PT TOLERATED WELL. HEAD OF BED REMAINS ELEVATED AT 30 DEGREES. CALL LIGHT WITHIN REACH. WILL CONTINUE TO MONITOR.
--- NOTE | 2017-08-02 01:15 | NUR ---
PT REPOSITIONED ON RIGHT SIDE. HEAD OF BED ELEVATED 30 DEGREES. PEG FLUSHED AT THIS TIME. PT TOLERATED WELL. CALL LIGHT WITHIN REACH. WILL CONTINUE TO MONITOR.
[2017-08-02 04:16] VITALS: BP 91/49
--- NOTE | 2017-08-02 04:25 | NUR ---
IV TUBING CHANGED,IV PATENT. NO COMPLAINTS OF PAIN FROM PT AT THIS TIME. PT VOIDED 150CC CLEAR YELLOW URINE IN URINAL. HEAD OF BED ELEVATED 30 DEGREES. WILL CONTINUE TO MONITOR.
[2017-08-02 06:32] LABS: HEMATOCRIT 33.4 % (39.0-50.0); HEMOGLOBIN 10.8 g/dl (14.0-18.0); IMMATURE GRANULOCYTES 0.3 % (0.0-1.0); MEAN CELL VOLUME 88.6 fL CALC (80.0-100.0); MEAN CORPUSCULAR HGB 28.6 pG CALC (26.0-32.0); MEAN CORPUSCULAR HGB CONC 32.3 g/L CALC (32.0-36.0); NEUT# 2.11 thou/uL (1.82-7.42); RED BLOOD COUNT 3.77 mill/uL (4.70-6.10); RED CELL DISTRI WIDTH 13.9 % (11.5-15.5)
[2017-08-02 06:49] LABS: ANION GAP 13 (6-22 (CALC)); BUN 18 mg/dL (8-23); BUN/CREATININE RATIO 27 (12-20 (CALC)); CALCIUM 8.9 mg/dL (8.4-10.2); CARBON DIOXIDE 29 mmol/l (22-30); CHLORIDE 104 mmol/l (95-108); CREATININE 0.6 mg/dL (0.7-1.3); GFR > 60 ML/MIN (>=60 (CALC)); GFR FOR AFR.AMER. > 60 ML/MIN (>=60 (CALC)); GLUCOSE 98 mg/dL (82-115); MAGNESIUM 1.8 mg/dL (1.6-2.3); POTASSIUM 4.2 mmol/l (3.5-5.1); SODIUM 142 mmol/l (137-146)
--- NOTE | 2017-08-02 07:44 | NUR ---
SHIFT CHANGE REPORT FROM SELINA, PT AWAKE AND ALERT SITTING UP IN RECLINER PERFORMING ORAL CARE, TUBE FEED INFUSING, IVF INFUSING, TELE MONITOR IN PLACE. C/O PAIN @ 03/14 AND REQUESTING PAIN MED AT THIS TIME, REMINDED OF LAST TIME HE HAD MED AND INFORMED OF NEXT TIME HE CAN HAVE IT. CALL TOLBERT IN REACH, WILL CONTINUE TO MONITOR.
[2017-08-02 09:10] VITALS: BP 104/60
[2017-08-02 11:38] VITALS: BP 113/68
--- NOTE | 2017-08-02 12:33 | NUR ---
RESTING IN BED AT THIS TIME, STATES HEADACHE IS BETTER BUT NOT GONE AWAY, ALL NEEDS ADDRESSED, CALL TOLBERT IN REACH.
[2017-08-02 15:41] VITALS: BP 112/63
--- NOTE | 2017-08-02 16:00 | NUR ---
ASSISTED OOB TO RECLINER, ALL NEEDS ADDRESSED, CALL TOLBERT IN REACH.
[2017-08-02 18:54] VITALS: BP 132/75
--- NOTE | 2017-08-02 19:10 | NUR ---
REPORT RECIEVED FROM TERY PALACIO. PT AWAKE AND RESTING IN BED WATCHING TV. NO ACUTE SIGNS OF DISTRESS NOTED. RESP EVEN AND UNLABORED. PEG PATENT. IV PATENT. TELE IN PLACE. SAFETY PRECAUTIONS REINFORCED. PT INSTRUCTED TO CALL FOR ASSISTANCE. CALL LIGHT WITHIN REACH. WILL CONTINUE TO MONITOR.
[2017-08-02 19:35] VITALS: BP 106/61
--- NOTE | 2017-08-02 23:40 | NUR ---
IV CHANGE DUE. IV PATENT. PT STATES HE DOES NOT WANT THE IV CHANGED. WILL CONTINUE TO MONITOR. CALL LIGHT WITHIN REACH.
[2017-08-03 00:10] VITALS: BP 91/52
--- NOTE | 2017-08-03 00:38 | NUR ---
PT APPEARS TO BE ASLEEP, RESTING WITH EYES CLOSED IN BED. NO SIGNS OF DISTRESS NOTED. TELE IN PLACE. IV PATENT. WILL CONTINUE TO MONITOR.
--- NOTE | 2017-08-03 03:25 | NUR ---
NEW BAG OF [place] SANCHES. IV PATENT. DOUGLAS MCKEON. PEG PATENT. TELE IN PLACE. CALL LIGHT WITHIN REACH.
[2017-08-03 03:27] VITALS: BP 91/55
[2017-08-03 06:09] LABS: ANION GAP 14 (6-22 (CALC)); BUN 19 mg/dL (8-23); BUN/CREATININE RATIO 30 (12-20 (CALC)); CALCIUM 8.9 mg/dL (8.4-10.2); CARBON DIOXIDE 28 mmol/l (22-30); CHLORIDE 103 mmol/l (95-108); CREATININE 0.6 mg/dL (0.7-1.3); GFR > 60 ML/MIN (>=60 (CALC)); GFR FOR AFR.AMER. > 60 ML/MIN (>=60 (CALC)); GLUCOSE 108 mg/dL (82-115); POTASSIUM 4.1 mmol/l (3.5-5.1); SODIUM 140 mmol/l (137-146)
--- NOTE | 2017-08-03 07:41 | NUR ---
SHIFT CHANGE REPORT FROM EITAN, PT RESTING WITH EYES CLOSED, RESPONDS TO VERBAL STIMULI, PEG TUBE FEED IN PROCESS IVF INFUSING, ALL NEEDS ADDRESSED, CALL TOLBERT IN REACH.
[2017-08-03 08:40] VITALS: BP 106/70
--- NOTE | 2017-08-03 12:00 | NUR ---
ASSISTED FROM RECLINER TO BED, ALL NEEDS ADDRESSED, CALL TOLBERT IN REACH.
[2017-08-03 12:07] VITALS: BP 97/61
[2017-08-03 15:29] VITALS: BP 95/57
[2017-08-03] MEDS ORDERED: JEVITY 1.5 CAL PEG (16:56)
--- NOTE | 2017-08-03 18:56 | NUR ---
PT IS DISPLEASED HE IS BEING D/C AND COMMENTED WE'RE KICKING HIM OUT. I EXPLAINED TO PT REASON HE CANNOT STAY HERE AND THAT WE HAVE KEPT HIM MUCH LONGER THAN CRITERIA TO BE HERE, ALSO EXPLAINED THAT ONCE INSURANCE ELIGIBILITY HAS BEEN MET AND AUTHORISED HE WILL BE PLACED IN A FACILITY CLOSER TO HOME. PT FURTHER CALLED [facility] TO GET MORE EXPLANATION OF PLANS AND AXEL (RN) EXPLAINED PLAN.
[2017-08-03 19:11] VITALS: BP 106/52
--- NOTE | 2017-08-03 19:30 | NUR ---
BEDSIDE REPORT RECEIVED FROM TREY PALACIO. PT SITTING UP IN BED WATCHING TV. REQUESTS PAIN MEDICATION; GIVEN SCHEDULED AND PT NOFITIFED OF NEXT AVAILABLE DOSE. RESPIRATIONS EVEN AND UNLABORED ON ROOM AIR. PEG TUBE SITE APPEARS HEALTHY AND GEVITY 1.2 INFUSING AT 65ML/HR WITHOUT DIFFULTY. PLAN OF CARE DISCUSSED INCLUDING SCHEDULED DISCHARGE TOMORROW. PT [id number] TO VERBALIZE CONCERNS. STATES UNDERSTANDING. SAFETY MEASURES IN PLACE. CALL LIGHT SYSTEM REVIEWED AND IN REACH.
--- NOTE | 2017-08-04 00:14 | NUR ---
PT C/O BURNING TO LEFT FOOT. BLANCHABLE REDNESS NOTED TO LEFT HEEL. EDUCATED ON OFF LOADING HEELS AND REPOSITIONING SELF IN BED. HEEL PROTECTORS ALSO APPLIED AT THIS TIME. PT FRQUENTLY ASKS WHEN HIS NEXT PAIN MEDICATION IS DUE. STATES THAT HE HAS A HEADACHE. PT WAS SLEEPING UPON FIRST ENTERING ROOM. NO DISTRESS NOTED. CALL LIGHT WITHIN REACH.
[2017-08-04 00:20] VITALS: BP 97/52
--- NOTE | 2017-08-04 01:19 | NUR ---
NEW ORDERS TO D/C IV AND D/C TELEMETRY. SINUS BRITTON HR 59 AT TIME REMOVED.
--- NOTE | 2017-08-04 04:12 | NUR ---
PT ASLEEP AT THIS TIME. NO SIGNS OF DISTRESS NOTED. RESPIRATIONS EVEN AND UNLABORED. NO APPARENT CHANGES IN CONDITION. SAFETY MEASURES IN PLACE. CALL LIGHT WITHIN REACH.
[2017-08-04 04:35] VITALS: BP 110/58
--- NOTE | 2017-08-04 07:00 | NUR ---
RECEIVED BEDSIDE REPORT FROM MARVIN YANG. RESTING IN BED WITH EYES CLSOED, AWAKENS EASILY. RESPS EVEN AND UNLABORED ON ROOM AIR. JEVITY INFUSING AT 65CC/HR WITH 30CC WATER FLUSH Q4HR VIA PEG TUBE. VOICES NO NEEDS AT THIS TIME. PLAN OF CARE DISCUSSED. SAFETY PRECAUTIONS REINFORCED. BED IN LOWEST POSITON WITH WHEELS LOCKED. CALL LIGHT WIHTIN REACH. WILL CONTINUE TO MONITOR.
[2017-08-04 08:14] VITALS: BP 116/92
--- NOTE | 2017-08-04 08:15 | NUR ---
RESTING IN BED WITH HOB ELEVATED. RESPS EVEN AND UNLABORED ON ROOM AIR. MEDICATED WITH LORTAB VIA PEG TUBE FOR C/O 10 HEADACHE. 30CC RESIDUAL, JEVITY INFUSING WITHOUT WITHOUT DIFFICULTY. CALL LIGHT WITHIN REACH. ENCOURAGED PT TO CALL FOR ANY NEEDS.
--- NOTE | 2017-08-04 09:45 | NUR ---
DR HARMAN IN WITH PT, NEW ORDERS RECEIVED.
--- NOTE | 2017-08-04 11:44 | NUR ---
Discharge instructions given. Patient verbalizes understanding of same. Discharged in stable condition via Wheelchair to Home with family. All belongings sent with pt.
== END 2017-08-04 11:14 | disposition home health service (06) | DRG 177 ==
LOC: ED 11:49 → ED-I 14:11 → ED 16:03 → MS2 16:04
PROVIDERS: Emergency Medicine; Nurse Practitioner Family; ADMIT Internal Medicine; ATTEND Internal Medicine
DX: J69.0 Pneumonitis due to inhalation of food and vomit (principal); E43 Unspecified severe protein-calorie malnutrition; G91.9 Hydrocephalus, unspecified; G20 Parkinson's disease; L03.115 Cellulitis of right lower limb; F11.20 Opioid dependence, uncomplicated; E86.0 Dehydration; R13.12 Dysphagia, oropharyngeal phase; G25.81 Restless legs syndrome; Z68.1 Body mass index [BMI] 19.9 or less, adult; I10 Essential (primary) hypertension; G89.4 Chronic pain syndrome; F41.9 Anxiety disorder, unspecified; G93.0 Cerebral cysts; Z66 Do not resuscitate; M19.011 Primary osteoarthritis, right shoulder; F32.9 Major depressive disorder, single episode, unspecified; S99.811A Other specified injuries of right ankle, initial encounter; W23.1XXA Caught, crushed, jammed, or pinched between stationary objects, initial encounter; Y92.230 Patient room in hospital as the place of occurrence of the external cause; Z98.2 Presence of cerebrospinal fluid drainage device; Z93.1 Gastrostomy status; Z86.79 Personal history of other diseases of the circulatory system

== ENCOUNTER 2018-01-03 04:49 | Inpatient (IN) | payer MEDICARE, OTHER ==
[~2018-01-03] VITALS: Ht 188 cm; Wt 73.6 kg
[~2018-01-03 04:49] MED LIST changes: +HYDROXYZ PAM25 MG PO; +JEVITY 1.5 CAL PEG; +ROPINIROLE0.5 MG PO
[2018-01-03 05:30] LABS: IMMATURE GRANULOCYTES 0.9 % (0.0-1.0); MEAN CELL VOLUME 92.7 fL CALC (80.0-100.0); MEAN CORPUSCULAR HGB 30.2 pG CALC (26.0-32.0); MEAN CORPUSCULAR HGB CONC 32.5 g/L CALC (32.0-36.0); NEUT# 6.71 thou/uL (1.82-7.42); RED BLOOD COUNT 4.54 mill/uL (4.70-6.10); RED CELL DISTRI WIDTH 14.3 % (11.5-15.5)
[2018-01-03 05:31] LABS: URINE BILIRUBIN - DIPSTICK NEGATIVE (NEGATIVE); URINE BLOOD DIPSTICK NEGATIVE (NEGATIVE); URINE COLOR YELLOW; URINE GLUCOSE - DIPSTICK NEGATIVE (NEGATIVE); URINE KETONE NEGATIVE (NEGATIVE); URINE LEUK ESTERASE NEGATIVE (NEGATIVE); URINE NITRITE - DIPSTICK NEGATIVE (Negative); URINE PROTEIN - DIPSTICK NEGATIVE (NEG-TRACE); URINE SPECIFIC GRAVITY 1.015; URINE UROBILINOGEN - DIPSTICK 0.2 E.U./dL (0.2)
[2018-01-03 05:31] LABS: HEMATOCRIT 42.1 % (39.0-50.0); HEMOGLOBIN 13.7 g/dl (14.0-18.0)
[2018-01-03 05:32] LABS: URINE CLARITY TURBID
[2018-01-03 05:33] LABS: INFLUENZA A NONE DETECTED (NONE DETECT); INFLUENZA B NONE DETECTED (NONE DETECT)
[2018-01-03 05:35] LABS: ALBUMIN 4.2 g/dL (3.2-5.0); ALKALINE PHOSPHATASE 124 u/l (38-126); ANION GAP 17 (6-22 (CALC)); BILIRUBIN, TOTAL 0.8 mg/dL (0.0-1.4); BUN 25 mg/dL (8-23); BUN/CREATININE RATIO 42 (12-20 (CALC)); CARBON DIOXIDE 31 mmol/l (22-30); CHLORIDE 102 mmol/l (95-108); CREATININE 0.6 mg/dL (0.7-1.3); GFR > 60 ML/MIN (>=60 (CALC)); GFR FOR AFR.AMER. > 60 ML/MIN (>=60 (CALC)); POTASSIUM 4.1 mmol/l (3.5-5.1); SGOT/AST 29 u/l (19-48); SGPT/ALT 44 u/l (11-66); SODIUM 146 mmol/l (137-146); TOTAL PROTEIN 7.3 g/dL (6.3-8.2)
[2018-01-03 05:38] LABS: URINE BACTERIA FEW hpf; URINE RBC 0-2 RBC/hpf (0-5); URINE SQUAMOUS EPITHELIAL CELL FEW EPI/hpf (0-FEW); URINE WBC 0-2 WBC/hpf (0-5)
[2018-01-03 05:39] LABS: URINE AMORPH SEDIMENT MANY hpf (NONE-FER)
[2018-01-03 06:37] VITALS: BP 136/81
[2018-01-03 07:30] VITALS: BP 116/71
[2018-01-03 11:17] VITALS: BP 90/54
[2018-01-03 15:53] VITALS: BP 92/53
[2018-01-03 19:00] VITALS: BP 102/56
[2018-01-04 05:03] LABS: MEAN CELL VOLUME 94.2 fL CALC (80.0-100.0); MEAN CORPUSCULAR HGB 29.8 pG CALC (26.0-32.0); MEAN CORPUSCULAR HGB CONC 31.7 g/L CALC (32.0-36.0); RED BLOOD COUNT 3.62 mill/uL (4.70-6.10); RED CELL DISTRI WIDTH 14.3 % (11.5-15.5)
[2018-01-04 05:10] VITALS: BP 91/47
[2018-01-04 05:16] LABS: ANION GAP 14 (6-22 (CALC)); BUN 20 mg/dL (8-23); BUN/CREATININE RATIO 34 (12-20 (CALC)); CARBON DIOXIDE 24 mmol/l (22-30); CHLORIDE 110 mmol/l (95-108); CREATININE 0.6 mg/dL (0.7-1.3); GFR > 60 ML/MIN (>=60 (CALC)); GFR FOR AFR.AMER. > 60 ML/MIN (>=60 (CALC)); POTASSIUM 4.2 mmol/l (3.5-5.1); SODIUM 143 mmol/l (137-146)
[2018-01-04 05:47] LABS: HEMATOCRIT 34.1 % (39.0-50.0); HEMOGLOBIN 10.8 g/dl (14.0-18.0)
[2018-01-04 07:58] VITALS: BP 99/48
[2018-01-04 16:00] VITALS: BP 116/61
[2018-01-04 19:15] VITALS: BP 111/59
[2018-01-05 04:30] VITALS: BP 103/45
[2018-01-05 05:17] LABS: HEMATOCRIT 35.6 % (39.0-50.0); HEMOGLOBIN 11.5 g/dl (14.0-18.0); MEAN CELL VOLUME 93.4 fL CALC (80.0-100.0); MEAN CORPUSCULAR HGB 30.2 pG CALC (26.0-32.0); MEAN CORPUSCULAR HGB CONC 32.3 g/L CALC (32.0-36.0); RED BLOOD COUNT 3.81 mill/uL (4.70-6.10); RED CELL DISTRI WIDTH 14.2 % (11.5-15.5)
[2018-01-05 05:18] LABS: ANION GAP 14 (6-22 (CALC)); BUN 17 mg/dL (8-23); BUN/CREATININE RATIO 26 (12-20 (CALC)); CARBON DIOXIDE 26 mmol/l (22-30); CHLORIDE 109 mmol/l (95-108); CREATININE 0.7 mg/dL (0.7-1.3); GFR > 60 ML/MIN (>=60 (CALC)); GFR FOR AFR.AMER. > 60 ML/MIN (>=60 (CALC)); POTASSIUM 4.3 mmol/l (3.5-5.1); SODIUM 145 mmol/l (137-146)
[2018-01-05 06:15] VITALS: BP 108/59
[2018-01-05 08:32] VITALS: BP 115/56
[2018-01-05 12:00] VITALS: BP 106/56
[2018-01-05] MEDS ORDERED: LORCET HD 10-321 TAB PO (12:20)
[2018-01-05] MEDS ORDERED: AUGMENTIN250 MG/5 M PO (12:20)
== END 2018-01-05 13:45 | disposition home health service (06) | DRG 177 ==
LOC: ED 04:49 → ED-I 05:15 → ED 05:15 → ED-I 05:40 → ED 05:54 → MS2 05:55
PROVIDERS: Emergency Medicine; ADMIT Internal Medicine; ATTEND Internal Medicine
DX: J69.0 Pneumonitis due to inhalation of food and vomit (principal); E43 Unspecified severe protein-calorie malnutrition; G20 Parkinson's disease; Z93.1 Gastrostomy status; I10 Essential (primary) hypertension; M19.90 Unspecified osteoarthritis, unspecified site; F41.9 Anxiety disorder, unspecified; G89.4 Chronic pain syndrome; Z68.20 Body mass index [BMI] 20.0-20.9, adult; Z87.01 Personal history of pneumonia (recurrent); Z98.2 Presence of cerebrospinal fluid drainage device; Z86.79 Personal history of other diseases of the circulatory system

== ENCOUNTER 2018-03-04 20:19 | Emergency (ER) | payer OTHER ==
[~2018-03-04] VITALS: Ht 188 cm; Wt 100.0 kg
[~2018-03-04 20:19] MED LIST changes: +AUGMENTIN250 MG/5 M PO
[2018-03-04 21:10] LABS: HEMATOCRIT 39.9 % (39.0-50.0); HEMOGLOBIN 12.7 g/dl (14.0-18.0); IMMATURE GRANULOCYTES 0.2 % (0.0-1.0); MEAN CELL VOLUME 91.9 fL CALC (80.0-100.0); MEAN CORPUSCULAR HGB 29.3 pG CALC (26.0-32.0); MEAN CORPUSCULAR HGB CONC 31.8 g/L CALC (32.0-36.0); NEUT# 2.77 thou/uL (1.82-7.42); RED BLOOD COUNT 4.34 mill/uL (4.70-6.10); RED CELL DISTRI WIDTH 13.6 % (11.5-15.5)
[2018-03-04 21:14] LABS: URINE BILIRUBIN - DIPSTICK NEGATIVE (NEGATIVE); URINE BLOOD DIPSTICK NEGATIVE (NEGATIVE); URINE CLARITY CLEAR; URINE COLOR YELLOW; URINE GLUCOSE - DIPSTICK NEGATIVE (NEGATIVE); URINE KETONE NEGATIVE (NEGATIVE); URINE LEUK ESTERASE NEGATIVE (NEGATIVE); URINE NITRITE - DIPSTICK NEGATIVE (Negative); URINE PH 7.5 (4.5-8.0); URINE PROTEIN - DIPSTICK NEGATIVE (NEG-TRACE); URINE UROBILINOGEN - DIPSTICK 0.2 E.U./dL (0.2)
[2018-03-04 21:16] LABS: ALKALINE PHOSPHATASE 95 u/l (38-126); AMYLASE 58 u/l (30-110); ANION GAP 12 (6-22 (CALC)); BILIRUBIN, TOTAL 0.5 mg/dL (0.0-1.4); BUN 27 mg/dL (8-23); BUN/CREATININE RATIO 44 (12-20 (CALC)); CARBON DIOXIDE 30 mmol/l (22-30); CHLORIDE 103 mmol/l (95-108); CREATININE 0.6 mg/dL (0.7-1.3); GFR > 60 ML/MIN (>=60 (CALC)); GFR FOR AFR.AMER. > 60 ML/MIN (>=60 (CALC)); LIPASE 29 u/l (23-300); POTASSIUM 4.1 mmol/l (3.5-5.1); SGOT/AST 50 u/l (19-48); SGPT/ALT 30 u/l (11-66); SODIUM 140 mmol/l (137-146); TOTAL PROTEIN 7.4 g/dL (6.3-8.2)
[2018-03-04 21:28] LABS: MYOGLOBIN 170 ng/mL (0 - 121)
[2018-03-04] MEDS ORDERED: ZOFRAN ODT4 MG PO (23:17)
[2018-03-04 23:31] VITALS: BP 143/71
== END 2018-03-05 07:02 | disposition home or self-care (01) | DRG 392 ==
LOC: ED 20:19 → ED-I 22:56 → ED 03-05 07:02
PROVIDERS: Emergency Medicine
DX: R10.84 Generalized abdominal pain (principal); G91.9 Hydrocephalus, unspecified; R51 Headache; M19.90 Unspecified osteoarthritis, unspecified site; I10 Essential (primary) hypertension; G20 Parkinson's disease; G25.81 Restless legs syndrome; F41.9 Anxiety disorder, unspecified; G89.4 Chronic pain syndrome; Z93.1 Gastrostomy status; Z98.2 Presence of cerebrospinal fluid drainage device
CPT/HCPCS: Q9967; S0164

== ENCOUNTER 2018-03-10 18:32 | Inpatient (IN) | payer MEDICARE ==
[~2018-03-10] VITALS: Ht 188 cm; Wt 84.0 kg
[~2018-03-10 18:32] MED LIST changes: +ZOFRAN ODT4 MG PO
[2018-03-10 19:06] LABS: HEMATOCRIT 38.9 % (39.0-50.0); HEMOGLOBIN 12.7 g/dl (14.0-18.0); IMMATURE GRANULOCYTES 0.6 % (0.0-1.0); MEAN CELL VOLUME 90.5 fL CALC (80.0-100.0); MEAN CORPUSCULAR HGB 29.5 pG CALC (26.0-32.0); MEAN CORPUSCULAR HGB CONC 32.6 g/L CALC (32.0-36.0); NEUT# 3.78 thou/uL (1.82-7.42); RED BLOOD COUNT 4.3 mill/uL (4.70-6.10); RED CELL DISTRI WIDTH 13.6 % (11.5-15.5)
[2018-03-10 19:27] LABS: ALBUMIN 3.7 g/dL (3.2-5.0); ALKALINE PHOSPHATASE 80 u/l (38-126); ANION GAP 13 (6-22 (CALC)); BILIRUBIN, TOTAL 0.7 mg/dL (0.0-1.4); BUN 8 mg/dL (8-23); BUN/CREATININE RATIO 13 (12-20 (CALC)); CARBON DIOXIDE 26 mmol/l (22-30); CHLORIDE 109 mmol/l (95-108); CREATININE 0.6 mg/dL (0.7-1.3); GFR > 60 ML/MIN (>=60 (CALC)); GFR FOR AFR.AMER. > 60 ML/MIN (>=60 (CALC)); POTASSIUM 3.4 mmol/l (3.5-5.1); SGOT/AST 36 u/l (19-48); SGPT/ALT 29 u/l (11-66); SODIUM 145 mmol/l (137-146); TOTAL PROTEIN 7.2 g/dL (6.3-8.2)
[2018-03-10 19:28] LABS: ETHYL ALCOHOL < 10 mg/dl (0-30)
[2018-03-10 19:29] LABS: URINE BILIRUBIN - DIPSTICK NEGATIVE (NEGATIVE); URINE BLOOD DIPSTICK TRACE-INTACT (NEGATIVE); URINE COLOR YELLOW; URINE GLUCOSE - DIPSTICK NEGATIVE (NEGATIVE); URINE KETONE 15 mg/dL (NEGATIVE); URINE LEUK ESTERASE NEGATIVE (NEGATIVE); URINE NITRITE - DIPSTICK NEGATIVE (Negative); URINE PROTEIN - DIPSTICK NEGATIVE (NEG-TRACE); URINE UROBILINOGEN - DIPSTICK 0.2 E.U./dL (0.2)
[2018-03-10 19:31] LABS: URINE CLARITY CLEAR
[2018-03-10 19:33] LABS: COCAINE NEGATIVE (NEGATIVE); METHADONE NEGATIVE (NEGATIVE); TETRAHYDROCANNABIONOL NEGATIVE (NEGATIVE)
[2018-03-10 19:34] LABS: BARBITURATES NEGATIVE (NEGATIVE); OXCYCODONE NEGATIVE (NEGATIVE); TRICYLIC ANTIDEPRESSANTS NEGATIVE (NEGATIVE)
[2018-03-10 19:38] LABS: MYOGLOBIN 137 ng/mL (0 - 121)
[2018-03-10 20:48] VITALS: BP 148/81
[2018-03-11 03:57] VITALS: BP 139/68
[2018-03-11 08:25] VITALS: BP 126/70
[2018-03-11 10:42] LABS: HEMATOCRIT 36.1 % (39.0-50.0); HEMOGLOBIN 11.6 g/dl (14.0-18.0); MEAN CELL VOLUME 89.6 fL CALC (80.0-100.0); MEAN CORPUSCULAR HGB 28.8 pG CALC (26.0-32.0); MEAN CORPUSCULAR HGB CONC 32.1 g/L CALC (32.0-36.0); RED BLOOD COUNT 4.03 mill/uL (4.70-6.10); RED CELL DISTRI WIDTH 13.4 % (11.5-15.5)
[2018-03-11 10:58] LABS: ANION GAP 12 (6-22 (CALC)); BUN 6 mg/dL (8-23); BUN/CREATININE RATIO 12 (12-20 (CALC)); CARBON DIOXIDE 22 mmol/l (22-30); CHLORIDE 110 mmol/l (95-108); CREATININE 0.5 mg/dL (0.7-1.3); GFR > 60 ML/MIN (>=60 (CALC)); GFR FOR AFR.AMER. > 60 ML/MIN (>=60 (CALC)); POTASSIUM 3.9 mmol/l (3.5-5.1); SODIUM 141 mmol/l (137-146)
[2018-03-11 15:30] VITALS: BP 133/68
[2018-03-11 19:30] VITALS: BP 141/75
[2018-03-12 04:00] VITALS: BP 135/78
[2018-03-12 04:47] LABS: HEMATOCRIT 39.7 % (39.0-50.0); HEMOGLOBIN 12.7 g/dl (14.0-18.0); IMMATURE GRANULOCYTES 0.2 % (0.0-1.0); MEAN CELL VOLUME 92.1 fL CALC (80.0-100.0); MEAN CORPUSCULAR HGB 29.5 pG CALC (26.0-32.0); NEUT# 3.05 thou/uL (1.82-7.42); RED BLOOD COUNT 4.31 mill/uL (4.70-6.10); RED CELL DISTRI WIDTH 13.5 % (11.5-15.5)
[2018-03-12 04:58] LABS: ANION GAP 14 (6-22 (CALC)); BUN 9 mg/dL (8-23); BUN/CREATININE RATIO 14 (12-20 (CALC)); CARBON DIOXIDE 28 mmol/l (22-30); CHLORIDE 106 mmol/l (95-108); CREATININE 0.6 mg/dL (0.7-1.3); GFR > 60 ML/MIN (>=60 (CALC)); GFR FOR AFR.AMER. > 60 ML/MIN (>=60 (CALC)); POTASSIUM 3.7 mmol/l (3.5-5.1); SODIUM 145 mmol/l (137-146)
[2018-03-12 09:30] VITALS: BP 131/77
[2018-03-12 16:00] VITALS: BP 139/65
[2018-03-12 19:30] VITALS: BP 144/64
[2018-03-13 04:00] VITALS: BP 127/83
[2018-03-13 04:43] LABS: HEMATOCRIT 35.4 % (39.0-50.0); HEMOGLOBIN 11.4 g/dl (14.0-18.0); IMMATURE GRANULOCYTES 0.2 % (0.0-1.0); MEAN CELL VOLUME 91.2 fL CALC (80.0-100.0); MEAN CORPUSCULAR HGB 29.4 pG CALC (26.0-32.0); MEAN CORPUSCULAR HGB CONC 32.2 g/L CALC (32.0-36.0); NEUT# 2.6 thou/uL (1.82-7.42); RED BLOOD COUNT 3.88 mill/uL (4.70-6.10); RED CELL DISTRI WIDTH 13.5 % (11.5-15.5)
[2018-03-13 04:56] LABS: ANION GAP 12 (6-22 (CALC)); BUN 11 mg/dL (8-23); BUN/CREATININE RATIO 17 (12-20 (CALC)); CARBON DIOXIDE 28 mmol/l (22-30); CHLORIDE 105 mmol/l (95-108); CREATININE 0.7 mg/dL (0.7-1.3); GFR > 60 ML/MIN (>=60 (CALC)); GFR FOR AFR.AMER. > 60 ML/MIN (>=60 (CALC)); POTASSIUM 3.4 mmol/l (3.5-5.1); SODIUM 142 mmol/l (137-146)
[2018-03-13 08:00] VITALS: BP 131/47
[2018-03-13 15:21] VITALS: BP 128/68
[2018-03-13 19:20] VITALS: BP 134/64
[2018-03-14 04:18] VITALS: BP 122/56
[2018-03-14 04:48] LABS: HEMATOCRIT 34.4 % (39.0-50.0); HEMOGLOBIN 11.1 g/dl (14.0-18.0); IMMATURE GRANULOCYTES 0.2 % (0.0-1.0); MEAN CELL VOLUME 90.5 fL CALC (80.0-100.0); MEAN CORPUSCULAR HGB 29.2 pG CALC (26.0-32.0); MEAN CORPUSCULAR HGB CONC 32.3 g/L CALC (32.0-36.0); NEUT# 3.73 thou/uL (1.82-7.42); RED BLOOD COUNT 3.8 mill/uL (4.70-6.10); RED CELL DISTRI WIDTH 13.4 % (11.5-15.5)
[2018-03-14 04:53] LABS: ANION GAP 13 (6-22 (CALC)); BUN 15 mg/dL (8-23); BUN/CREATININE RATIO 26 (12-20 (CALC)); CARBON DIOXIDE 26 mmol/l (22-30); CHLORIDE 107 mmol/l (95-108); CREATININE 0.6 mg/dL (0.7-1.3); GFR > 60 ML/MIN (>=60 (CALC)); GFR FOR AFR.AMER. > 60 ML/MIN (>=60 (CALC)); MAGNESIUM 1.9 mg/dL (1.6-2.3); SODIUM 142 mmol/l (137-146)
[2018-03-14 04:54] LABS: POTASSIUM 4.4 mmol/l (3.5-5.1)
[2018-03-14 08:04] VITALS: BP 127/67
[2018-03-14 15:10] VITALS: BP 138/56
[2018-03-14 19:30] VITALS: BP 139/69
[2018-03-15 04:12] VITALS: BP 139/58
[2018-03-15 07:30] VITALS: BP 153/84
[2018-03-15 08:04] VITALS: BP 153/84
[2018-03-15] MEDS ORDERED: PREDNISONE10 MG PO (12:17)
[2018-03-15] MEDS ORDERED: LEVAQUIN750 MG PO (12:17)
[2018-03-15] MEDS ORDERED: VALIUM5 MG PO (12:19)
[2018-03-15] MEDS ORDERED: LORCET HD 10-321 TAB PO (12:19)
== END 2018-03-15 15:25 | DRG 177 ==
LOC: ED 18:32 → ED-I 19:30 → ED 20:07 → MS2 20:08
PROVIDERS: Emergency Medicine; Nurse Practitioner; Nurse Practitioner Family; ADMIT Internal Medicine; ATTEND Internal Medicine
DX: J15.1 Pneumonia due to Pseudomonas (principal); E43 Unspecified severe protein-calorie malnutrition; G91.9 Hydrocephalus, unspecified; J69.0 Pneumonitis due to inhalation of food and vomit; G20 Parkinson's disease; I10 Essential (primary) hypertension; R21 Rash and other nonspecific skin eruption; G25.81 Restless legs syndrome; G89.4 Chronic pain syndrome; F41.9 Anxiety disorder, unspecified; M19.90 Unspecified osteoarthritis, unspecified site; R13.12 Dysphagia, oropharyngeal phase; K94.29 Other complications of gastrostomy; E87.6 Hypokalemia; M25.571 Pain in right ankle and joints of right foot; M25.521 Pain in right elbow; M25.471 Effusion, right ankle; M25.421 Effusion, right elbow; Y83.3 Surgical operation with formation of external stoma as the cause of abnormal reaction of the patient, or of later complication, without mention of misadventure at the time of the procedure; Y95 Nosocomial condition; Z68.23 Body mass index [BMI] 23.0-23.9, adult; Z86.79 Personal history of other diseases of the circulatory system; Z98.2 Presence of cerebrospinal fluid drainage device; Z87.01 Personal history of pneumonia (recurrent)
CPT/HCPCS: J1650; J2060; Q9967

== ENCOUNTER 2018-04-14 12:21 | Emergency (ER) | payer MEDICARE ==
[~2018-04-14] VITALS: Ht 188 cm; Wt 75.0 kg
[~2018-04-14 12:21] MED LIST changes: +LEVAQUIN750 MG PO; +PREDNISONE10 MG PO
[2018-04-14] MEDS ORDERED: REGLAN10 MG PO (14:47)
[2018-04-14 14:52] VITALS: BP 136/87
== END 2018-04-14 14:59 | disposition home or self-care (01) ==
LOC: ED 12:21
DX: R51 Headache (principal); I10 Essential (primary) hypertension; M19.90 Unspecified osteoarthritis, unspecified site; G20 Parkinson's disease; Z93.1 Gastrostomy status; Z98.2 Presence of cerebrospinal fluid drainage device

== ENCOUNTER 2018-07-04 10:02 | Emergency (ER) | payer OTHER ==
[~2018-07-04] VITALS: Ht 188 cm; Wt 80.0 kg
[~2018-07-04 10:02] MED LIST changes: +REGLAN10 MG PO
[2018-07-04 10:37] LABS: IMMATURE GRANULOCYTES 0.2 % (0.0-5.0); MEAN CELL VOLUME 93.7 fL CALC (80.0-100.0); MEAN CORPUSCULAR HGB 29.8 pG CALC (26.0-32.0); MEAN CORPUSCULAR HGB CONC 31.8 g/L CALC (32.0-36.0); NEUT# 4.8 thou/uL (1.82-7.42); RED BLOOD COUNT 4.9 mill/uL (4.70-6.10); RED CELL DISTRI WIDTH 13.4 % (11.5-15.5)
[2018-07-04 10:49] LABS: HEMATOCRIT 45.9 % (39.0-50.0); HEMOGLOBIN 14.6 g/dl (14.0-18.0)
[2018-07-04 10:55] LABS: ALBUMIN 4.3 g/dL (3.2-5.0); ALKALINE PHOSPHATASE 98 u/l (38-126); ANION GAP 17 (6-22 (CALC)); BILIRUBIN, TOTAL 0.8 mg/dL (0.0-1.4); BUN 22 mg/dL (8-23); BUN/CREATININE RATIO 35 (12-20 (CALC)); CARBON DIOXIDE 28 mmol/l (22-30); CHLORIDE 102 mmol/l (95-108); CREATININE 0.6 mg/dL (0.7-1.3); GFR > 60 ML/MIN (>=60 (CALC)); GFR FOR AFR.AMER. > 60 ML/MIN (>=60 (CALC)); POTASSIUM 4.2 mmol/l (3.5-5.1); SGOT/AST 32 u/l (19-48); SODIUM 143 mmol/l (137-146); TOTAL PROTEIN 7.2 g/dL (6.3-8.2)
[2018-07-04 11:00] LABS: INFLUENZA A NONE DETECTED (NONE DETECT)
[2018-07-04 11:01] LABS: INFLUENZA B NONE DETECTED (NONE DETECT)
[2018-07-04 11:28] LABS: URINE BILIRUBIN - DIPSTICK NEGATIVE (NEGATIVE); URINE BLOOD DIPSTICK NEGATIVE (NEGATIVE); URINE COLOR YELLOW; URINE GLUCOSE - DIPSTICK NEGATIVE (NEGATIVE); URINE KETONE NEGATIVE (NEGATIVE); URINE LEUK ESTERASE NEGATIVE (NEGATIVE); URINE NITRITE - DIPSTICK NEGATIVE (Negative); URINE PH 7.5 (4.5-8.0); URINE PROTEIN - DIPSTICK NEGATIVE (NEG-TRACE); URINE SPECIFIC GRAVITY 1.015; URINE UROBILINOGEN - DIPSTICK 0.2 E.U./dL (0.2)
[2018-07-04 11:29] LABS: URINE CLARITY CLEAR
[2018-07-04] MEDS ORDERED: PHENERGAN25 MG RE (11:53)
[2018-07-04 12:07] VITALS: BP 122/72
== END 2018-07-04 12:07 | disposition home or self-care (01) | DRG 392 ==
LOC: ED 10:02
PROVIDERS: Family Medicine
DX: A08.4 Viral intestinal infection, unspecified (principal); R11.0 Nausea; R50.9 Fever, unspecified; R00.0 Tachycardia, unspecified; Z93.1 Gastrostomy status; G20 Parkinson's disease; I10 Essential (primary) hypertension

== ENCOUNTER 2018-09-21 10:31 | Emergency (ER) | payer OTHER ==
[~2018-09-21] VITALS: Ht 188 cm; Wt 75.0 kg
[~2018-09-21 10:31] MED LIST changes: +PHENERGAN25 MG RE
[2018-09-21 12:37] LABS: HEMATOCRIT 41.7 % (39.0-50.0); HEMOGLOBIN 13.6 g/dl (14.0-18.0); MEAN CELL VOLUME 90.5 fL CALC (80.0-100.0); MEAN CORPUSCULAR HGB 29.5 pG CALC (26.0-32.0); MEAN CORPUSCULAR HGB CONC 32.6 g/L CALC (32.0-36.0); RED BLOOD COUNT 4.61 mill/uL (4.70-6.10); RED CELL DISTRI WIDTH 13.8 % (11.5-15.5)
[2018-09-21 13:06] LABS: ALBUMIN 4.2 g/dL (3.2-5.0); ALKALINE PHOSPHATASE 88 u/l (38-126); ANION GAP 13 (6-22 (CALC)); BILIRUBIN, TOTAL 0.8 mg/dL (0.0-1.4); BUN 20 mg/dL (8-23); BUN/CREATININE RATIO 29 (12-20 (CALC)); CARBON DIOXIDE 28 mmol/l (22-30); CHLORIDE 106 mmol/l (95-108); CREATININE 0.7 mg/dL (0.7-1.3); GFR > 60 ML/MIN (>=60 (CALC)); GFR FOR AFR.AMER. > 60 ML/MIN (>=60 (CALC)); LIPASE 47 u/l (23-300); POTASSIUM 4.3 mmol/l (3.5-5.1); SGOT/AST 35 u/l (19-48); SODIUM 142 mmol/l (137-146); TOTAL PROTEIN 6.8 g/dL (6.3-8.2)
[2018-09-21 14:06] LABS: IMMATURE GRANULOCYTES 0.2 % (0.0-5.0); NEUT# 4.05 thou/uL (1.82-7.42)
[2018-09-21 14:10] LABS: URINE BILIRUBIN - DIPSTICK NEGATIVE (NEGATIVE); URINE BLOOD DIPSTICK NEGATIVE (NEGATIVE); URINE COLOR YELLOW; URINE GLUCOSE - DIPSTICK NEGATIVE (NEGATIVE); URINE KETONE NEGATIVE (NEGATIVE); URINE LEUK ESTERASE NEGATIVE (NEGATIVE); URINE NITRITE - DIPSTICK NEGATIVE (Negative); URINE PH 6.5 (4.5-8.0); URINE PROTEIN - DIPSTICK NEGATIVE (NEG-TRACE); URINE UROBILINOGEN - DIPSTICK 0.2 E.U./dL (0.2)
[2018-09-21 14:16] LABS: BARBITURATES NEGATIVE (NEGATIVE); COCAINE NEGATIVE (NEGATIVE); METHADONE NEGATIVE (NEGATIVE); TETRAHYDROCANNABIONOL NEGATIVE (NEGATIVE); TRICYLIC ANTIDEPRESSANTS NEGATIVE (NEGATIVE)
[2018-09-21 14:17] LABS: OXCYCODONE POSITIVE (NEGATIVE)
[2018-09-21] MEDS ORDERED: DILTIAZEM30 MG PEG (14:53)
[2018-09-21] MEDS ORDERED: DULCOLAX5 MG PEG (14:54)
[2018-09-21] MEDS ORDERED: VISTARIL25 MG PEG (14:54)
[2018-09-21] MEDS ORDERED: ROPINIROLE0.5 MG PEG (14:55)
[2018-09-21] MEDS ORDERED: CARBIDOPA25 MG PEG (14:58)
[2018-09-21] MEDS ORDERED: VALIUM5 MG PEG (15:00)
[2018-09-21] MEDS ORDERED: RANITIDINE75 MG/5 ML PEG (15:00)
[2018-09-21] MEDS ORDERED: CARB/LEVO1 TA4 PEG (15:01)
[2018-09-21] MEDS ORDERED: LORCET HD 10-321 TAB PEG (15:03)
[2018-09-21 19:30] VITALS: BP 118/62
== END 2018-09-21 19:28 | disposition short-term general hospital (02) | DRG 392 ==
LOC: ED 10:31
PROVIDERS: Emergency Medicine
DX: R10.11 Right upper quadrant pain (principal); R10.12 Left upper quadrant pain; G89.29 Other chronic pain; D69.6 Thrombocytopenia, unspecified; I10 Essential (primary) hypertension; M19.90 Unspecified osteoarthritis, unspecified site; G20 Parkinson's disease; Z93.1 Gastrostomy status; Z98.2 Presence of cerebrospinal fluid drainage device
CPT/HCPCS: J0131; J2060; Q9967

== ENCOUNTER 2018-11-08 11:32 | Emergency (ER) | payer OTHER ==
[~2018-11-08] VITALS: Ht 188 cm; Wt 81.0 kg
[~2018-11-08 11:32] MED LIST changes: +CARB/LEVO1 TA4 PEG; +CARBIDOPA25 MG PEG; +DILTIAZEM30 MG PEG; +DULCOLAX5 MG PEG; +LORCET HD 10-321 TAB PEG; +RANITIDINE75 MG/5 ML PEG; +ROPINIROLE0.5 MG PEG; +VALIUM5 MG PEG; +VISTARIL25 MG PEG
[2018-11-08 12:00] LABS: URINE BILIRUBIN - DIPSTICK NEGATIVE (NEGATIVE); URINE BLOOD DIPSTICK TRACE-LYSED (NEGATIVE); URINE COLOR YELLOW; URINE GLUCOSE - DIPSTICK NEGATIVE (NEGATIVE); URINE KETONE NEGATIVE (NEGATIVE); URINE LEUK ESTERASE NEGATIVE (NEGATIVE); URINE NITRITE - DIPSTICK NEGATIVE (Negative); URINE PH 7.5 (4.5-8.0); URINE PROTEIN - DIPSTICK NEGATIVE (NEG-TRACE); URINE UROBILINOGEN - DIPSTICK 0.2 E.U./dL (0.2)
[2018-11-08 13:14] LABS: ANION GAP 12 (6-22 (CALC)); BUN 22 mg/dL (8-23); BUN/CREATININE RATIO 36 (12-20 (CALC)); CARBON DIOXIDE 27 mmol/l (22-30); CHLORIDE 106 mmol/l (95-108); CREATININE 0.6 mg/dL (0.7-1.3); GFR > 60 ML/MIN (>=60 (CALC)); GFR FOR AFR.AMER. > 60 ML/MIN (>=60 (CALC)); POTASSIUM 4.3 mmol/l (3.5-5.1); SODIUM 141 mmol/l (137-146)
[2018-11-08 13:45] LABS: TSH, 3RD GENERATION 0.63 uIU/mL (0.47 - 4.68)
[2018-11-08 13:47] LABS: HEMATOCRIT 38.6 % (39.0-50.0); HEMOGLOBIN 12.4 g/dl (14.0-18.0); MEAN CORPUSCULAR HGB 29.2 pG CALC (26.0-32.0); MEAN CORPUSCULAR HGB CONC 32.1 g/L CALC (32.0-36.0); RED BLOOD COUNT 4.24 mill/uL (4.70-6.10); RED CELL DISTRI WIDTH 14.1 % (11.5-15.5)
[2018-11-08 14:03] LABS: IMMATURE GRANULOCYTES 0.3 % (0.0-5.0); NEUT# 2.73 thou/uL (1.82-7.42)
[2018-11-08] MEDS ORDERED: PREVACID30 M1 VT (16:11)
[2018-11-08] MEDS ORDERED: MECLIZINE25 MG PO (16:14)
[2018-11-08 22:35] VITALS: BP 131/60
== END 2018-11-08 22:35 | disposition short-term general hospital (02) | DRG 641 ==
LOC: ED 11:32 → ED-I 11:51 → ED 22:35
PROVIDERS: Family Medicine
DX: R62.7 Adult failure to thrive (principal); R53.1 Weakness; R53.81 Other malaise; E86.0 Dehydration; D69.6 Thrombocytopenia, unspecified; R94.31 Abnormal electrocardiogram [ECG] [EKG]

== ENCOUNTER 2018-11-20 15:25 | Emergency (ER) | payer OTHER ==
[~2018-11-20] VITALS: Ht 188 cm; Wt 85.0 kg
[~2018-11-20 15:25] MED LIST changes: +MECLIZINE25 MG PO; +PREVACID30 M1 VT
[2018-11-20 16:15] LABS: HEMOGLOBIN 14.1 g/dl (14.0-18.0); MEAN CORPUSCULAR HGB CONC 31.5 g/L CALC (32.0-36.0); RED BLOOD COUNT 4.86 mill/uL (4.70-6.10); RED CELL DISTRI WIDTH 14.2 % (11.5-15.5)
[2018-11-20 16:28] LABS: ALBUMIN 4.1 g/dL (3.2-5.0); ALKALINE PHOSPHATASE 69 u/l (38-126); ANION GAP 17 (6-22 (CALC)); BILIRUBIN, TOTAL 0.7 mg/dL (0.0-1.4); BUN 20 mg/dL (8-23); BUN/CREATININE RATIO 36 (12-20 (CALC)); CARBON DIOXIDE 27 mmol/l (22-30); CHLORIDE 102 mmol/l (95-108); CREATININE 0.6 mg/dL (0.7-1.3); GFR > 60 ML/MIN (>=60 (CALC)); GFR FOR AFR.AMER. > 60 ML/MIN (>=60 (CALC)); LIPASE 56 u/l (23-300); POTASSIUM 4.1 mmol/l (3.5-5.1); SGOT/AST 44 u/l (19-48); SODIUM 141 mmol/l (137-146)
[2018-11-20 16:32] LABS: HEMATOCRIT 44.7 % (39.0-50.0)
[2018-11-20 16:34] LABS: IMMATURE GRANULOCYTES 0.3 % (0.0-5.0); NEUT# 4.76 thou/uL (1.82-7.42)
[2018-11-20 17:45] LABS: URINE BILIRUBIN - DIPSTICK NEGATIVE (NEGATIVE); URINE BLOOD DIPSTICK NEGATIVE (NEGATIVE); URINE COLOR YELLOW; URINE GLUCOSE - DIPSTICK NEGATIVE (NEGATIVE); URINE KETONE NEGATIVE (NEGATIVE); URINE LEUK ESTERASE NEGATIVE (NEGATIVE); URINE NITRITE - DIPSTICK NEGATIVE (Negative); URINE PROTEIN - DIPSTICK NEGATIVE (NEG-TRACE); URINE SPECIFIC GRAVITY 1.015; URINE UROBILINOGEN - DIPSTICK 0.2 E.U./dL (0.2)
[2018-11-20 18:39] VITALS: BP 133/74
== END 2018-11-20 19:11 | DRG 813 ==
LOC: ED 15:25
PROVIDERS: Family Medicine
DX: D69.6 Thrombocytopenia, unspecified (principal); R11.2 Nausea with vomiting, unspecified; R10.13 Epigastric pain; R50.9 Fever, unspecified

== ENCOUNTER → 2018-11-26 | Outpatient (REF) | payer OTHER ==
[2018-11-26 07:01] LABS: IMMATURE GRANULOCYTES 0.2 % (0.0-5.0); MEAN CELL VOLUME 90.4 fL CALC (80.0-100.0); MEAN CORPUSCULAR HGB 28.5 pG CALC (26.0-32.0); MEAN CORPUSCULAR HGB CONC 31.5 g/L CALC (32.0-36.0); NEUT# 4.47 thou/uL (1.82-7.42); RED BLOOD COUNT 4.07 mill/uL (4.70-6.10); RED CELL DISTRI WIDTH 14.1 % (11.5-15.5)
[2018-11-26 07:30] LABS: HEMATOCRIT 36.8 % (39.0-50.0); HEMOGLOBIN 11.6 g/dl (14.0-18.0)
== END | disposition home or self-care (01) ==
LOC: LABSPEC 05:06
PROVIDERS: ATTEND Internal Medicine
DX: D69.6 Thrombocytopenia, unspecified (principal)

== ENCOUNTER 2019-01-08 13:08 | Emergency (ER) | payer OTHER ==
[~2019-01-08] VITALS: Ht 188 cm; Wt 90.0 kg
[2019-01-08] MEDS ORDERED: CARBIDOPA25 MG PEG (13:33)
[2019-01-08] MEDS ORDERED: DANAZOL200 MG PO (13:34)
[2019-01-08] MEDS ORDERED: DOCUSATE SOD100 MG PEG (13:34)
[2019-01-08] MEDS ORDERED: PREDNISONE20 MG PEG (13:37)
[2019-01-08] MEDS ORDERED: LINZESS72 MCG PEG (13:38)
[2019-01-08] MEDS ORDERED: HYDROXYZ HCL10 MG PEG (13:40)
[2019-01-08 13:51] LABS: HEMOGLOBIN 12.6 g/dl (14.0-18.0); IMMATURE GRANULOCYTES 0.3 % (0.0-5.0); MEAN CELL VOLUME 89.1 fL CALC (80.0-100.0); MEAN CORPUSCULAR HGB 27.4 pG CALC (26.0-32.0); MEAN CORPUSCULAR HGB CONC 30.7 g/L CALC (32.0-36.0); NEUT# 3.39 thou/uL (1.82-7.42); RED BLOOD COUNT 4.6 mill/uL (4.70-6.10)
[2019-01-08 14:07] LABS: ALBUMIN 3.7 g/dL (3.2-5.0); ALKALINE PHOSPHATASE 81 u/l (38-126); BILIRUBIN, TOTAL 0.8 mg/dL (0.0-1.4); BUN 26 mg/dL (8-23); BUN/CREATININE RATIO 39 (12-20 (CALC)); CARBON DIOXIDE 26 mmol/l (22-30); CHLORIDE 110 mmol/l (95-108); CREATININE 0.7 mg/dL (0.7-1.3); GFR > 60 ML/MIN (>=60 (CALC)); GFR FOR AFR.AMER. > 60 ML/MIN (>=60 (CALC)); SODIUM 144 mmol/l (137-146); TOTAL PROTEIN 6.4 g/dL (6.3-8.2)
[2019-01-08 14:09] LABS: ANION GAP 14 (6-22 (CALC)); POTASSIUM 5.5 mmol/l (3.5-5.1); SGOT/AST 148 u/l (19-48)
[2019-01-08 14:41] LABS: URINE BILIRUBIN - DIPSTICK NEGATIVE (NEGATIVE); URINE BLOOD DIPSTICK NEGATIVE (NEGATIVE); URINE COLOR YELLOW; URINE GLUCOSE - DIPSTICK NEGATIVE (NEGATIVE); URINE KETONE NEGATIVE (NEGATIVE); URINE LEUK ESTERASE NEGATIVE (NEGATIVE); URINE NITRITE - DIPSTICK NEGATIVE (Negative); URINE PH 7.5 (4.5-8.0); URINE PROTEIN - DIPSTICK NEGATIVE (NEG-TRACE)
[2019-01-08 16:12] VITALS: BP 139/75
== END 2019-01-08 16:13 | disposition home or self-care (01) | DRG 948 ==
LOC: ED 13:08
PROVIDERS: Emergency Medicine
DX: R53.1 Weakness (principal); G89.29 Other chronic pain; G20 Parkinson's disease
CPT/HCPCS: J0131

== ENCOUNTER 2019-01-13 05:59 | Inpatient (IN) | payer MEDICARE, OTHER ==
[~2019-01-13] VITALS: Ht 188 cm; Wt 84.8 kg
[~2019-01-13 05:59] MED LIST changes: +DANAZOL200 MG PO; +DOCUSATE SOD100 MG PEG; +HYDROXYZ HCL10 MG PEG; +LINZESS72 MCG PEG; +PREDNISONE20 MG PEG
[2019-01-13 06:31] LABS: HEMATOCRIT 41.9 % (39.0-50.0); HEMOGLOBIN 12.9 g/dl (14.0-18.0); IMMATURE GRANULOCYTES 0.7 % (0.0-5.0); MEAN CELL VOLUME 87.8 fL CALC (80.0-100.0); MEAN CORPUSCULAR HGB CONC 30.8 g/L CALC (32.0-36.0); NEUT# 4.78 thou/uL (1.82-7.42); RED BLOOD COUNT 4.77 mill/uL (4.70-6.10)
[2019-01-13 06:52] LABS: ALBUMIN 3.8 g/dL (3.2-5.0); ALKALINE PHOSPHATASE 100 u/l (38-126); ANION GAP 12 (6-22 (CALC)); BILIRUBIN, TOTAL 0.9 mg/dL (0.0-1.4); BUN 19 mg/dL (8-23); BUN/CREATININE RATIO 28 (12-20 (CALC)); CARBON DIOXIDE 27 mmol/l (22-30); CHLORIDE 105 mmol/l (95-108); CREATININE 0.7 mg/dL (0.7-1.3); GFR > 60 ML/MIN (>=60 (CALC)); GFR FOR AFR.AMER. > 60 ML/MIN (>=60 (CALC)); SGOT/AST 117 u/l (19-48); SODIUM 140 mmol/l (137-146); TOTAL PROTEIN 6.3 g/dL (6.3-8.2)
[2019-01-13 06:54] LABS: POTASSIUM 4.3 mmol/l (3.5-5.1)
[2019-01-13 08:23] LABS: URINE BILIRUBIN - DIPSTICK NEGATIVE (NEGATIVE); URINE BLOOD DIPSTICK NEGATIVE (NEGATIVE); URINE COLOR YELLOW; URINE GLUCOSE - DIPSTICK NEGATIVE (NEGATIVE); URINE KETONE TRACE mg/dL (NEGATIVE); URINE LEUK ESTERASE NEGATIVE (NEGATIVE); URINE NITRITE - DIPSTICK NEGATIVE (Negative); URINE PROTEIN - DIPSTICK NEGATIVE (NEG-TRACE); URINE SPECIFIC GRAVITY 1.015
[2019-01-13 09:16] VITALS: BP 103/54
[2019-01-13 11:15] VITALS: BP 106/60
[2019-01-13 16:14] VITALS: BP 104/61
[2019-01-13 19:05] VITALS: BP 109/63
[2019-01-13 23:31] VITALS: BP 117/69
[2019-01-14 04:06] VITALS: BP 122/70
[2019-01-14 05:35] LABS: IMMATURE GRANULOCYTES 0.2 % (0.0-5.0); MEAN CELL VOLUME 88.6 fL CALC (80.0-100.0); MEAN CORPUSCULAR HGB 27.8 pG CALC (26.0-32.0); MEAN CORPUSCULAR HGB CONC 31.4 g/L CALC (32.0-36.0); NEUT# 3.47 thou/uL (1.82-7.42); RED BLOOD COUNT 3.85 mill/uL (4.70-6.10); RED CELL DISTRI WIDTH 16.4 % (11.5-15.5)
[2019-01-14 05:43] LABS: HEMATOCRIT 34.1 % (39.0-50.0); HEMOGLOBIN 10.7 g/dl (14.0-18.0)
[2019-01-14 05:52] LABS: ANION GAP 9 (6-22 (CALC)); BUN 18 mg/dL (8-23); BUN/CREATININE RATIO 29 (12-20 (CALC)); CARBON DIOXIDE 24 mmol/l (22-30); CHLORIDE 110 mmol/l (95-108); CREATININE 0.6 mg/dL (0.7-1.3); GFR > 60 ML/MIN (>=60 (CALC)); GFR FOR AFR.AMER. > 60 ML/MIN (>=60 (CALC)); POTASSIUM 3.9 mmol/l (3.5-5.1); SODIUM 139 mmol/l (137-146)
[2019-01-14 08:25] VITALS: BP 136/66
[2019-01-14 11:00] VITALS: BP 112/59
[2019-01-14 17:09] VITALS: BP 115/66
[2019-01-14 19:00] VITALS: BP 110/64
[2019-01-14 23:00] VITALS: BP 120/62
[2019-01-15 04:00] VITALS: BP 95/58
[2019-01-15 05:45] LABS: HEMATOCRIT 34.5 % (39.0-50.0); HEMOGLOBIN 10.7 g/dl (14.0-18.0); IMMATURE GRANULOCYTES 0.5 % (0.0-5.0); MEAN CELL VOLUME 88.2 fL CALC (80.0-100.0); MEAN CORPUSCULAR HGB 27.4 pG CALC (26.0-32.0); NEUT# 2.44 thou/uL (1.82-7.42); RED BLOOD COUNT 3.91 mill/uL (4.70-6.10); RED CELL DISTRI WIDTH 16.7 % (11.5-15.5)
[2019-01-15 06:00] LABS: ALKALINE PHOSPHATASE 69 u/l (38-126); ANION GAP 9 (6-22 (CALC)); BUN 17 mg/dL (8-23); BUN/CREATININE RATIO 24 (12-20 (CALC)); CARBON DIOXIDE 25 mmol/l (22-30); CHLORIDE 112 mmol/l (95-108); CREATININE 0.7 mg/dL (0.7-1.3); GFR > 60 ML/MIN (>=60 (CALC)); GFR FOR AFR.AMER. > 60 ML/MIN (>=60 (CALC)); POTASSIUM 3.8 mmol/l (3.5-5.1); SGOT/AST 60 u/l (19-48); SODIUM 142 mmol/l (137-146); TOTAL PROTEIN 5.2 g/dL (6.3-8.2)
[2019-01-15 06:06] LABS: ALBUMIN 2.9 g/dL (3.2-5.0); BILIRUBIN, TOTAL 0.5 mg/dL (0.0-1.4)
[2019-01-15 08:24] VITALS: BP 102/59
[2019-01-15 10:50] VITALS: BP 109/60
[2019-01-15 14:40] VITALS: BP 108/60
[2019-01-15 16:43] VITALS: BP 111/61
[2019-01-15 19:00] VITALS: BP 102/47
[2019-01-16] VITALS (16 sets, daily range): BP systolic 97–134; BP diastolic 48–67
[2019-01-16 03:00] LABS: MYOGLOBIN 35 ng/mL (0 - 121)
[2019-01-16 06:07] LABS: HEMATOCRIT 35.4 % (39.0-50.0); HEMOGLOBIN 10.9 g/dl (14.0-18.0); IMMATURE GRANULOCYTES 0.2 % (0.0-5.0); MEAN CELL VOLUME 88.1 fL CALC (80.0-100.0); MEAN CORPUSCULAR HGB 27.1 pG CALC (26.0-32.0); MEAN CORPUSCULAR HGB CONC 30.8 g/L CALC (32.0-36.0); NEUT# 2.97 thou/uL (1.82-7.42); RED BLOOD COUNT 4.02 mill/uL (4.70-6.10); RED CELL DISTRI WIDTH 16.5 % (11.5-15.5)
[2019-01-16 06:27] LABS: ALBUMIN 2.9 g/dL (3.2-5.0); ALKALINE PHOSPHATASE 68 u/l (38-126); ANION GAP 10 (6-22 (CALC)); BILIRUBIN, TOTAL 0.3 mg/dL (0.0-1.4); BUN 21 mg/dL (8-23); BUN/CREATININE RATIO 29 (12-20 (CALC)); CARBON DIOXIDE 26 mmol/l (22-30); CHLORIDE 110 mmol/l (95-108); CREATININE 0.7 mg/dL (0.7-1.3); GFR > 60 ML/MIN (>=60 (CALC)); GFR FOR AFR.AMER. > 60 ML/MIN (>=60 (CALC)); LIPASE 65 u/l (23-300); MAGNESIUM 2.1 mg/dL (1.6-2.3); POTASSIUM 4.4 mmol/l (3.5-5.1); SGOT/AST 55 u/l (19-48); SODIUM 142 mmol/l (137-146); TOTAL PROTEIN 5.2 g/dL (6.3-8.2)
[2019-01-16 06:29] LABS: AMYLASE < 30 u/l (30-110)
[2019-01-17 04:28] VITALS: BP 109/65
[2019-01-17 07:22] VITALS: BP 137/70
[2019-01-17 08:13] LABS: HEMATOCRIT 36.9 % (39.0-50.0); HEMOGLOBIN 11.4 g/dl (14.0-18.0); IMMATURE GRANULOCYTES 0.4 % (0.0-5.0); MEAN CELL VOLUME 87.4 fL CALC (80.0-100.0); MEAN CORPUSCULAR HGB CONC 30.9 g/L CALC (32.0-36.0); NEUT# 3.12 thou/uL (1.82-7.42); RED BLOOD COUNT 4.22 mill/uL (4.70-6.10); RED CELL DISTRI WIDTH 16.2 % (11.5-15.5)
[2019-01-17 08:28] LABS: ALKALINE PHOSPHATASE 77 u/l (38-126); ANION GAP 10 (6-22 (CALC)); BILIRUBIN, TOTAL 0.4 mg/dL (0.0-1.4); BUN 21 mg/dL (8-23); BUN/CREATININE RATIO 34 (12-20 (CALC)); CARBON DIOXIDE 25 mmol/l (22-30); CHLORIDE 110 mmol/l (95-108); CREATININE 0.6 mg/dL (0.7-1.3); GFR > 60 ML/MIN (>=60 (CALC)); GFR FOR AFR.AMER. > 60 ML/MIN (>=60 (CALC)); MAGNESIUM 1.9 mg/dL (1.6-2.3); POTASSIUM 3.9 mmol/l (3.5-5.1); SGOT/AST 86 u/l (19-48); SODIUM 141 mmol/l (137-146); TOTAL PROTEIN 5.3 g/dL (6.3-8.2)
[2019-01-17 15:25] VITALS: BP 125/80
[2019-01-17 19:30] VITALS: BP 131/82
[2019-01-18 03:55] VITALS: BP 107/64
[2019-01-18 09:40] VITALS: BP 118/72
[2019-01-18 16:04] VITALS: BP 120/73
[2019-01-18 18:55] VITALS: BP 119/75
[2019-01-19 04:20] VITALS: BP 116/71
[2019-01-19 08:14] VITALS: BP 117/74
[2019-01-19] MEDS ORDERED: LACTULOSE10 GM/15 M PO (12:59)
[2019-01-19] MEDS ORDERED: PROTONIX40 M3 IV (13:00)
[2019-01-19] MEDS ORDERED: INVANZ1 GM IJ (13:01)
[2019-01-19 15:05] VITALS: BP 124/71
[2019-01-19 19:37] VITALS: BP 114/69
== END 2019-01-20 00:05 | DRG 178 ==
LOC: ED 05:59 → ED-I 07:22 → ED 07:50 → MS2 07:51 → ICU 14:46 → MS2 01-16 12:20
PROVIDERS: Emergency Medicine; Family Medicine; Internal Medicine Nephrology; Nurse Practitioner Family; ADMIT Internal Medicine; ATTEND Internal Medicine
DX: J69.0 Pneumonitis due to inhalation of food and vomit (principal); D69.3 Immune thrombocytopenic purpura; F11.20 Opioid dependence, uncomplicated; I69.959 Hemiplegia and hemiparesis following unspecified cerebrovascular disease affecting unspecified side; J15.1 Pneumonia due to Pseudomonas; G20 Parkinson's disease; I10 Essential (primary) hypertension; I69.991 Dysphagia following unspecified cerebrovascular disease; R13.10 Dysphagia, unspecified; M19.90 Unspecified osteoarthritis, unspecified site; G89.4 Chronic pain syndrome; G25.81 Restless legs syndrome; F41.9 Anxiety disorder, unspecified; S90.32XA Contusion of left foot, initial encounter; X58.XXXA Exposure to other specified factors, initial encounter; K59.00 Constipation, unspecified; R47.1 Dysarthria and anarthria; K21.9 Gastro-esophageal reflux disease without esophagitis; R00.1 Bradycardia, unspecified; R74.8 Abnormal levels of other serum enzymes; T36.0X5A Adverse effect of penicillins, initial encounter; Z93.1 Gastrostomy status; Z98.2 Presence of cerebrospinal fluid drainage device; Z91.81 History of falling; Z79.52 Long term (current) use of systemic steroids; Z66 Do not resuscitate
CPT/HCPCS: J0692; J1335; S0164

== ENCOUNTER 2019-01-22 16:08 | Observation (INO) | payer OTHER ==
[~2019-01-22] VITALS: Ht 188 cm; Wt 80.0 kg
[~2019-01-22 16:08] MED LIST changes: +INVANZ1 GM IJ; +LACTULOSE10 GM/15 M PO; +PROTONIX40 M3 IV
--- NOTE | 2019-01-22 16:26 | NUR ---
PT ASSISTED OUT OF VEHICLE AND ONTO STRETCHER, SEEN VERY WEAK. MONITORS PLACED, IV ESTABLISHED.
[2019-01-22 16:49] LABS: IMMATURE GRANULOCYTES 0.7 % (0.0-5.0); MEAN CELL VOLUME 86.4 fL CALC (80.0-100.0); MEAN CORPUSCULAR HGB 27.1 pG CALC (26.0-32.0); MEAN CORPUSCULAR HGB CONC 31.4 g/L CALC (32.0-36.0); NEUT# 6.12 thou/uL (1.82-7.42); RED BLOOD COUNT 5.6 mill/uL (4.70-6.10); RED CELL DISTRI WIDTH 16.7 % (11.5-15.5)
[2019-01-22 16:54] LABS: HEMATOCRIT 48.4 % (39.0-50.0); HEMOGLOBIN 15.2 g/dl (14.0-18.0)
[2019-01-22 16:57] LABS: ALKALINE PHOSPHATASE 89 u/l (38-126); ANION GAP 14 (6-22 (CALC)); BUN 21 mg/dL (8-23); BUN/CREATININE RATIO 29 (12-20 (CALC)); CARBON DIOXIDE 23 mmol/l (22-30); CHLORIDE 108 mmol/l (95-108); CREATININE 0.7 mg/dL (0.7-1.3); GFR > 60 ML/MIN (>=60 (CALC)); GFR FOR AFR.AMER. > 60 ML/MIN (>=60 (CALC)); LIPASE 182 u/l (23-300); POTASSIUM 4.2 mmol/l (3.5-5.1); SGOT/AST 60 u/l (19-48); SODIUM 141 mmol/l (137-146)
[2019-01-22 17:08] LABS: ALBUMIN 4.5 g/dL (3.2-5.0); BILIRUBIN, TOTAL 1.1 mg/dL (0.0-1.4); TOTAL PROTEIN 7.6 g/dL (6.3-8.2)
[2019-01-22 17:55] LABS: URINE BILIRUBIN - DIPSTICK NEGATIVE (NEGATIVE); URINE BLOOD DIPSTICK NEGATIVE (NEGATIVE); URINE COLOR YELLOW; URINE GLUCOSE - DIPSTICK NEGATIVE (NEGATIVE); URINE KETONE NEGATIVE (NEGATIVE); URINE LEUK ESTERASE NEGATIVE (NEGATIVE); URINE NITRITE - DIPSTICK NEGATIVE (Negative); URINE PH 6.5 (4.5-8.0); URINE PROTEIN - DIPSTICK NEGATIVE (NEG-TRACE); URINE UROBILINOGEN - DIPSTICK 0.2 E.U./dL (0.2)
--- NOTE | 2019-01-22 18:58 | NUR ---
PT PROVIDED BLANKETS REQUESTED, RESTS IN THE STRETCHER IN NO DISTRESS. CALLED FOR UPDATE, ADVISED THAT PHYSICIANS ARE ATTEMPTING TO PROVIDE LONG TERM PLACEMENT FOR HIM.
--- NOTE | 2019-01-22 20:46 | NUR ---
REPORT PROVIDED TO KRISHNA YANG, TO FLOOR SOON.
[2019-01-22 21:15] VITALS: BP 136/66
--- NOTE | 2019-01-22 21:24 | NUR ---
PT TAKEN TO FLOOR WITHOUT INCIDENT.
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
--- NOTE | 2019-01-22 22:00 | NUR ---
DR. BEARDEN RETURNED CALL-RECIEVED ORDER LORTAB FOR PAIN AND NO TUBE FEEDING TONIGHT. WILL GIVE HS MEDS WHEN PROFILED ON EMAR. PATIENT NOTIFIED. WILL CONT TO MONITOR.
--- NOTE | 2019-01-22 22:30 | NUR ---
PATIENT RESTING IN BED WITH HOB ELEVATED. HS MEDS INCLUDING LORTAB 10/325 AND HYDROXYZINE 25MG GIVEN VIA FEEDING TUBE. NO RESIDUAL PRIOR TO MEDS. FLUSHED WITH H2O FLUSH. REMAINS WITH HOB ELEVATED. CALL LIGHT IN REACH. WILL CONT TO MONITOR.
--- NOTE | 2019-01-23 00:42 | NUR ---
PATIENT APPEARS SLEEPING WITH HOB ELEVATED. RESP ARE EVEN AND UNLABORED. CALL LIGHT IN REACH. WILL CONT TO MONITOR.
--- NOTE | 2019-01-23 03:23 | NUR ---
PATIENT RESTING IN BED. VOIDED 300CC OF URINE IN URINAL. PROVIDED WITH ORAL HYGEINE USING PINK TOOTHETTES. CALL LIGHT IN REACH. WILL CONT TO MONITOR.
[2019-01-23 04:55] VITALS: BP 112/73
[2019-01-23 05:24] LABS: HEMATOCRIT 43.7 % (39.0-50.0); HEMOGLOBIN 13.6 g/dl (14.0-18.0); IMMATURE GRANULOCYTES 0.9 % (0.0-5.0); MEAN CELL VOLUME 86.4 fL CALC (80.0-100.0); MEAN CORPUSCULAR HGB 26.9 pG CALC (26.0-32.0); MEAN CORPUSCULAR HGB CONC 31.1 g/L CALC (32.0-36.0); NEUT# 4.16 thou/uL (1.82-7.42); RED BLOOD COUNT 5.06 mill/uL (4.70-6.10); RED CELL DISTRI WIDTH 16.5 % (11.5-15.5)
[2019-01-23 05:50] LABS: ALBUMIN 3.6 g/dL (3.2-5.0); ALKALINE PHOSPHATASE 74 u/l (38-126); AMYLASE 60 u/l (30-110); ANION GAP 12 (6-22 (CALC)); BILIRUBIN, TOTAL 1.1 mg/dL (0.0-1.4); BUN 21 mg/dL (8-23); BUN/CREATININE RATIO 29 (12-20 (CALC)); CARBON DIOXIDE 24 mmol/l (22-30); CHLORIDE 110 mmol/l (95-108); CREATININE 0.7 mg/dL (0.7-1.3); GFR > 60 ML/MIN (>=60 (CALC)); GFR FOR AFR.AMER. > 60 ML/MIN (>=60 (CALC)); LIPASE 246 u/l (23-300); MAGNESIUM 2.1 mg/dL (1.6-2.3); POTASSIUM 3.9 mmol/l (3.5-5.1); SGOT/AST 58 u/l (19-48); SODIUM 142 mmol/l (137-146); TOTAL PROTEIN 6.1 g/dL (6.3-8.2)
[2019-01-23 07:59] VITALS: BP 121/85
--- NOTE | 2019-01-23 09:00 | NUR ---
PT RESTING IN SEMI FOWLERS POSITION, ASPIRATION PRECAUTIONS IN PLACE;PT A&O X3 WITH GARBLED SPEECH;PT REPORTS HEADACHE PAIN RATING 5/10 ON THE PAIN SCALE AND REQUESTS PAIN MEDICATION,PT EDUCATED ON PAIN MEDICATION SCHEDULE AND VERBALIZES UNDERSTANDING;ICE PACKS PROVIDED FOR HEADACHE;RESPIRATIONS EVEN AND UNLABORED ON RA;ABDOMEN SOFT ON PALPATION AND ACTIVE IN ALL 4 QUADRANTS;30CC OF AIR ADMINISTERED TO LUQ PEG TO FOR ASCULTATION OF PATENCY;10CC OF GREEN/BROWN RESIDUAL NOTED;#22G TO RIGHT FOREARM FLUSHED AND PAENT,SITE APPEARS HEALTHY;GENERALIZED BRUISING NOTED;PT DENIES ANY ADDITIONAL NEEDS AT THIS TIME AND IS ENCOURAGED TO CALL FOR ASSISTANCE IF NEEDED;FALL PRECAUTIONS IN PLACE WITH CALL LIGHT IN REACH;WILL CONTINUE TO MONITOR
--- NOTE | 2019-01-23 12:00 | NUR ---
PT RESTING IN SEMI FOWLERS POSITION,A&O X3;RESPIRATIONS REMAIN SHALLOW ON O2 @ 2L VIA NC;PT REPORTS HEADACHE PAIN AND REQUESTS PAIN MEDICATION, PT RE-EDUCATED ON PAIN MEDICATION SCHEDULE AND VERBALIZES UNDERSTANDING;VERBAL ORDER OBTAINED FOR BOLUS TUBE FEEDINGS;ALL SAFETY PRECAUTIONS REINFORCED WITH CALL LIGHT IN REACH;WILL CONTINUE TO MONITOR
--- NOTE | 2019-01-23 12:44 | NUR ---
AT BEDSIDE DISCUSSING POC WITH PT AND SPOUSE.
[2019-01-23 14:45] VITALS: BP 124/83
--- NOTE | 2019-01-23 16:08 | NUR ---
PT RESTING IN BED WITH VISITOR AT BEDSIDE;RESPIRATIONS REMAIN EVEN AND UNLABORED ON RA;PT DENIES ANY CURRENT PAIN OR DISCOMFORTS;IV SITE TO RIGHT FOREARM PATENT;PT DENIES ANY ADDITIONAL NEEDS AT THIS TIME;ENCOURAGED TO CALL FOR ASSISTANCE IF NEEDED;CALL LIGHT IN REACH;WILL CONTINUE TO MONITOR
--- NOTE | 2019-01-23 17:08 | NUR ---
PEG TUBE FEEDING ADMINISTERED AT THIS TIME PER ORDER, OCC RESIDUAL NOTED PRIOR TO FEEDING;IV SITE REMOVED WITH CATHETER INTACT;PT EDUCATED ON D/C TO REHAB CENTER;AWAITING TRANSPORTED AT THIS TIME;WILL CONTINUE TO MONITOR
--- NOTE | 2019-01-23 18:23 | NUR ---
PT REPORTS HEAD PAIN RATING 9/10 ON THE PAIN SCALE AND REQUESTS PAIN MEDICATION PRIOR TO TRANSFER;PT MEDICATED WITH PRN LORTAB 10MG VIA PEG TUBE;WILL CONTINUE TO MONITOR
--- NOTE | 2019-01-23 18:35 | NUR ---
Discharge instructions given. Patient verbalizes understanding of same. Discharged in stable condition via Medical Transport to Extended [facility] Facility with *Other. All belongings sent with pt.
--- NOTE | 2019-01-23 18:57 | NUR ---
REPORT CALLED TO TREY GUY AT [facility]
== END 2019-01-23 18:35 | DRG 178 ==
LOC: ED 16:08 → ED-I 18:50 → ED 19:14 → MS2 19:15
PROVIDERS: Family Medicine; ADMIT Internal Medicine Nephrology; ATTEND Internal Medicine Nephrology
DX: J69.0 Pneumonitis due to inhalation of food and vomit (principal); J15.1 Pneumonia due to Pseudomonas; E46 Unspecified protein-calorie malnutrition; F11.20 Opioid dependence, uncomplicated; I69.951 Hemiplegia and hemiparesis following unspecified cerebrovascular disease affecting right dominant side; G91.9 Hydrocephalus, unspecified; G20 Parkinson's disease; I69.991 Dysphagia following unspecified cerebrovascular disease; R13.10 Dysphagia, unspecified; G89.4 Chronic pain syndrome; I10 Essential (primary) hypertension; D69.6 Thrombocytopenia, unspecified; K21.9 Gastro-esophageal reflux disease without esophagitis; M19.90 Unspecified osteoarthritis, unspecified site; G25.81 Restless legs syndrome; F41.9 Anxiety disorder, unspecified; Z93.1 Gastrostomy status; Z68.22 Body mass index [BMI] 22.0-22.9, adult; Z79.52 Long term (current) use of systemic steroids; Z66 Do not resuscitate; Z98.2 Presence of cerebrospinal fluid drainage device; Z86.79 Personal history of other diseases of the circulatory system
CPT/HCPCS: S0164

== ENCOUNTER 2019-02-06 17:43 | Inpatient (IN) | payer MEDICARE, OTHER ==
[~2019-02-06] VITALS: Ht 188 cm; Wt 90.0 kg
--- NOTE | 2019-02-06 17:54 | NUR ---
PT TO ROOM PER EMS.
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
--- NOTE | 2019-02-06 18:25 | NUR ---
SITTER AT BEDSIDE.
--- NOTE | 2019-02-06 18:48 | NUR ---
PT REPORT TO TREY DONNELLY.
--- NOTE | 2019-02-06 19:49 | NUR ---
150 CC CLEAR YELLOW URINE SENT TO LAB.
[2019-02-06 19:51] LABS: HEMATOCRIT 42.3 % (39.0-50.0); IMMATURE GRANULOCYTES 0.4 % (0.0-5.0); MEAN CELL VOLUME 88.1 fL CALC (80.0-100.0); MEAN CORPUSCULAR HGB 27.1 pG CALC (26.0-32.0); MEAN CORPUSCULAR HGB CONC 30.7 g/L CALC (32.0-36.0); NEUT# 4.53 thou/uL (1.82-7.42); RED BLOOD COUNT 4.8 mill/uL (4.70-6.10); RED CELL DISTRI WIDTH 16.7 % (11.5-15.5)
[2019-02-06 19:53] LABS: URINE BILIRUBIN - DIPSTICK NEGATIVE (NEGATIVE); URINE BLOOD DIPSTICK TRACE-INTACT (NEGATIVE); URINE COLOR YELLOW; URINE GLUCOSE - DIPSTICK NEGATIVE (NEGATIVE); URINE KETONE NEGATIVE (NEGATIVE); URINE LEUK ESTERASE NEGATIVE (NEGATIVE); URINE NITRITE - DIPSTICK NEGATIVE (Negative); URINE PH 8.5 (4.5-8.0); URINE PROTEIN - DIPSTICK 30 mg/dL (NEG-TRACE); URINE UROBILINOGEN - DIPSTICK 0.2 E.U./dL (0.2)
[2019-02-06 19:57] LABS: BARBITURATES NEGATIVE (NEGATIVE); COCAINE NEGATIVE (NEGATIVE); METHADONE NEGATIVE (NEGATIVE); OXCYCODONE POSITIVE (NEGATIVE); TETRAHYDROCANNABIONOL NEGATIVE (NEGATIVE); TRICYLIC ANTIDEPRESSANTS NEGATIVE (NEGATIVE)
[2019-02-06 20:00] LABS: URINE AMORPH SEDIMENT FEW hpf (NONE-FER); URINE RBC 0-2 RBC/hpf (0-5); URINE WBC 0-2 WBC/hpf (0-5)
[2019-02-06 20:06] LABS: ALKALINE PHOSPHATASE 76 u/l (38-126); ANION GAP 14 (6-22 (CALC)); BUN 23 mg/dL (8-23); BUN/CREATININE RATIO 39 (12-20 (CALC)); CARBON DIOXIDE 28 mmol/l (22-30); CHLORIDE 106 mmol/l (95-108); CREATININE 0.6 mg/dL (0.7-1.3); GFR > 60 ML/MIN (>=60 (CALC)); GFR FOR AFR.AMER. > 60 ML/MIN (>=60 (CALC)); MAGNESIUM 2.3 mg/dL (1.6-2.3); POTASSIUM 4.2 mmol/l (3.5-5.1); SGOT/AST 46 u/l (19-48); SODIUM 144 mmol/l (137-146); TOTAL PROTEIN 6.3 g/dL (6.3-8.2)
[2019-02-06 20:09] LABS: BILIRUBIN, TOTAL 0.6 mg/dL (0.0-1.4); ETHYL ALCOHOL 0 mg/dl (0-30)
--- NOTE | 2019-02-06 20:32 | NUR ---
RESTING QUIETLY. AWAITING PLACEMENT AND TRANSFER.
--- NOTE | 2019-02-06 20:40 | NUR ---
PAPERWORK HAS BEEN SENT TO [facility] FOR REVIEW.
--- NOTE | 2019-02-06 23:52 | NUR ---
PLACED IN HOSPITAL BED. UNABLE TO FIND PSYCH PLACEMENT.
--- NOTE | 2019-02-07 01:47 | NUR ---
16 OZ JEVITY 1.5 GIVEN VIA PEG TUBE FLUSHED WITH 60 CC H2O. LINEN CHANGED.
--- NOTE | 2019-02-07 04:00 | NUR ---
RESTING QUIETLY, SITTER AT BEDSIDE.
--- NOTE | 2019-02-07 06:04 | NUR ---
SLEEPING. NO APPARENT DISTRESS.
--- NOTE | 2019-02-07 06:50 | NUR ---
REPORT FROM TREY DONNELLY. PT RESTING IN STRETCHER IN NAD, SITTER AT BEDSIDE.
--- NOTE | 2019-02-07 07:30 | NUR ---
PATIENT STATES HE GET A TUBE FEED Q2 HOURS OF JEVITY AND THAT HE CAN FEED HIMSELF.
--- NOTE | 2019-02-07 08:30 | NUR ---
PT REQUESTING LIDOCAINE CREAM FOR HIS FEET. AWARE NO NEW ORDERS RECIEVED AT THIS TIME. PT RESTING IN STRETCHER IN NAD. CALL TOLBERT WITHIN REACH.
--- NOTE | 2019-02-07 09:00 | NUR ---
TREY GRIFFIN GAVE 16 OZ OF JEVITY VIA PEG TUBE. PT TOLERATED WELL.
--- NOTE | 2019-02-07 09:45 | NUR ---
PT UP TO BEDSIDE COMMODE WITH 2 MINIMAL ASSIST. PT HAD LARGE, SOFT BOWEL MOVEMENT.
--- NOTE | 2019-02-07 10:00 | NUR ---
BEDSIDE REPORT RECIEVED FROM TREY JEFFREY. PATIENT BEING MEDICATED WITH MORNING MEDS AT THIS TIME.
--- NOTE | 2019-02-07 11:05 | NUR ---
PATIENT REPORTS HEADACHE 6/10 AT THIS TIME.
--- NOTE | 2019-02-07 11:35 | NUR ---
PATIENT UP TO AMBULATE AROUND IN ROOM. SHUFFLING GAIT NOTED, TREY REYNA AT TO ASSIST PATIENT WITH AMBULATION.
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
--- NOTE | 2019-02-07 13:00 | NUR ---
JEVITY FEEDING GIVEN TO PATIENT VIA PEG TUB BY TREY FISHER.
--- NOTE | 2019-02-07 13:15 | NUR ---
PATIENT REQUESTING PAIN MEDICATIONS, INFORMED NO NEW ORDERS RECEIVED.
--- NOTE | 2019-02-07 14:55 | NUR ---
PATIENT MEDICATED PER MD ORDER FOR HEADACHE 06/14. PATIENT EXPLAINED 72 HOUR HOLD FOR EVALUATION. AT BEDSIDE PER PATIENT REQUEST. PATIENT DENIES ATTEMPTING TO HURT SELF OR ATTEMPT TO KILL HIMSELF.
--- NOTE | 2019-02-07 15:50 | NUR ---
PATIENT REPORTS HAVING CLUSTER HEADACHE, RATES 9/10.
--- NOTE | 2019-02-07 16:00 | NUR ---
PATIENT MOVED TO ROOM 5. PER CHARGE ISA MESA RN. REPORT GIVEN TO TREY HESTER. PATIENT IN STABLE CONDITION, TREY REYNA SITTER AT CONTINUES AT BEDSIDE. CARE RELINQUISHED.
--- NOTE | 2019-02-07 16:50 | NUR ---
PT BECOMING AGITATED BECAUSE THERE IS NO TV IN ROOM, WANTING TO GET UP AND MOVE AROUND. SITTER TRYING TO GET PT TO GET BACK IN ROOM. CHARGE NURSE NOTIFED AND WENT INTO ROOM TO REQUEST TO TALK TO HIM
--- NOTE | 2019-02-07 16:52 | NUR ---
PT UP WALKING AROUND ROOM, CAME TO DOOR WAY WITH SITTER, STATES HE IS GETTING FIDGETY WITHOUT A TV TO WATCH. ASSISTED PT BACK TO BED.
--- NOTE | 2019-02-07 17:32 | NUR ---
JEVITY FEEDING GIVEN PER TINA YANG.
--- NOTE | 2019-02-07 17:44 | NUR ---
PT GIVEN 10 MG OF VALIUM THRU PEG TUBE AND FLUSHED WITH H20
--- NOTE | 2019-02-07 17:46 | NUR ---
ADVISED PT HE WOULD RECEIVE HIS MILK OF MAG AND PAIN MEDICATION IN A COUPLE OF HOURS.
--- NOTE | 2019-02-07 17:53 | NUR ---
PER DR. FELTON WILL HOLD THE 1737 DOSE OF SINEMET UNTIL 2099 DUE TO WE ARE GIVING 25 MG. BID INSTEAD OF HIS 12.5 TID. PT NOTIFIED.
--- NOTE | 2019-02-07 18:03 | NUR ---
PT RESTING QUIETLY ON STRETCHER WATCHING TV. SITTER AT BEDSIDE
--- NOTE | 2019-02-07 19:00 | NUR ---
W/P/D SKIN CALM DEMEANOR.AIDE SITTING AT BEDSIDE PLEASANT CONVERSATION WITH STAFF NO S/S OF DISTRESS
--- NOTE | 2019-02-07 21:10 | NUR ---
MEDS PER GTUBE WATER FLUSHED AFTER PT SELFINSTILLS NUTRITIONAL FEEDING BY GRAVITY AND FLUSHED WITH WATER AFYETWARD
--- NOTE | 2019-02-07 21:10 | NUR ---
PT EVALUATED/INTERVIEWED BY RADHA JHAVERI FROM [facility] DEPT OF CHILDREN AND FAMILIES
--- NOTE | 2019-02-07 22:45 | NUR ---
PT HAS MOD AMT SOFT FORMED LT MARTINEZ BM PERICARE
--- NOTE | 2019-02-08 01:06 | NUR ---
PT AWAKENED AND VOIDS.W/P/D SKIN
--- NOTE | 2019-02-08 03:35 | NUR ---
PT MEDICATED FOR HEADACHE PAIN A/OX3 NO FOCAL DEFICITS.W/P/D SKIN
--- NOTE | 2019-02-08 06:57 | NUR ---
PT REPORT TO NURSE RAMBO
--- NOTE | 2019-02-08 07:00 | NUR ---
REPORT RECEIED FROM AG. PT IN LOW FOWLERS, AWAKE. SITTER AT BEDSIDE. NO SIGNS OF DISTRESS.
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
--- NOTE | 2019-02-08 07:30 | NUR ---
PT ASKED ME TO GIVE HIM 2 CANS OF JEVITY BY PEG TUBE, FLUSHED WITH WATER. FLUSHED 150cc CLOUDY YELLOW URINE. PT REQUEST SOCKS OFF BC HIS "FEET ARE ALWAYS BURNING". PT STATES HE IS CONTINENT OF URINE & FECES. ABLE TO COMPLETE OWN ORAL CARE. 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 PT STATES HE HAS A PSYCOLOGIST IN [facility]. PT TELLING ME ABOUT ALL HIS 14 BRAIN SURGERIES AND LARGE CYST IN HIS BRAIN. PT ALSO STATES HE'S SUPPOSED TO TAKE HIS LORTAB EVERY 4 HOURS. PTS RN AWARE.
--- NOTE | 2019-02-08 07:37 | NUR ---
AM MEDS CRUSHED AND GIVEN VIA PEG TUBE ORDERED.
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
--- NOTE | 2019-02-08 07:53 | NUR ---
PT APPEARS TO BE SLEEPING. NO S/S OF DISTRESS AT THIS TIME.
--- NOTE | 2019-02-08 08:02 | NUR ---
PT ASKED FOR BEDPAN FOR BM.
--- NOTE | 2019-02-08 08:15 | NUR ---
PT HAD MODERATE SOFT STOOL. FRANC CARE PROVIDED. AGAIN, REQUESTING PAIN MEDICATION.
--- NOTE | 2019-02-08 08:20 | NUR ---
SPOKE WITH DR FELTON REGARDING PTS PAIN MED REQUEST, ORDERS CHANGED TO QID.
--- NOTE | 2019-02-08 08:44 | NUR ---
PT LAYING IN BED, EYES CLOSED/MOUTH OPEN. CALLBELL IN HAND, TV ON.
--- NOTE | 2019-02-08 09:18 | NUR ---
PT USING URINAL. 200cc CLOUDY YELLOW, FOUL SMELLING URINE OUTPUT
--- NOTE | 2019-02-08 09:30 | NUR ---
PT MEDICAITED ORDERED FOR PAIN. DISCUSSED 2 LORTAB LEFT FOR THE SHIFT. SALINE GIVEN FOR COMPLAINTS OF DRY EYES. OTHERWISE, PT WITH NO SIGNS OF DISTRESS. WATCHING TV.
--- NOTE | 2019-02-08 09:33 | NUR ---
RN @BEDSIDE FOR PAIN MEDS & DRY EYES. PT USING GLYCERIN SWABS.
--- NOTE | 2019-02-08 09:35 | NUR ---
PT REQUESTS HIS HEAD BE PUT UP MORE TO HELP HIS GERD.
--- NOTE | 2019-02-08 09:47 | NUR ---
PT APPEARS TO BE SLEEPING AGAIN. NO S/S OF DISTRESS.
--- NOTE | 2019-02-08 10:26 | NUR ---
PT AWAKE, WATCHING TV.
--- NOTE | 2019-02-08 10:28 | NUR ---
PT USING BED CONTROLS BY SELF. NO ASSISTANCE NEEDED.
--- NOTE | 2019-02-08 10:38 | NUR ---
PT ARGUING WITH STAFF. NOW STATING HE NEEDS HIS HYDROXYLINE. PT REPEATEDLY FALLS ASLEEP AND SPEECH HAS BECOME MORE GARBLED.
--- NOTE | 2019-02-08 11:35 | NUR ---
PT STATES HE ONLY TAKES 1.5 CANS OF JEVITY PER FEEDING VS ORDER FOR 2 CANS. PT FEED BY PEGTUBE & FLUSHED WITH WATER. PT REQUESTED FEEDING NOW. MORE CANS ORDERED FROM [facility].
--- NOTE | 2019-02-08 11:50 | NUR ---
pt intermittently conversing with sitter at bedside.
--- NOTE | 2019-02-08 12:29 | NUR ---
PT REQUEST TO AMUBULATE IN ROOM. PT USING SHUFFLING GAIT WITH MOD ASSIST x1 FROM SIDE TO SIDE OF ER ROOM 14. PT REQUEST BSC FOR BM. BM WAS LARGE, GREENISH, FORMED WITH SCANT URINE. PT GIVEN PARTIAL BATH. LINENS CHANGED ON BED. PT WEARING NONSKID SOCKS/GOWN.
--- NOTE | 2019-02-08 13:53 | NUR ---
PT CONTINUES TO MAKE CONSTANT REQUESTS. PT LITERALLY CAN NOT GO MORE THAN 15 MINS WITHOUT REQUEST SOMETHING. PT NOW RAISING/LOWERING BED, THEN ASKING FOR ME TO RAISE HIS HEAD AGAIN.
--- NOTE | 2019-02-08 14:27 | NUR ---
PT REQUESTING SOMETHING FOR DRY EYES, GIVEN A SALINE FLUSH. 200cc +125cc CLOUDY YELLOW FOUL SMELLING URINE FLUSHED FROM URINAL.
--- NOTE | 2019-02-08 14:39 | NUR ---
PT GIVEN A CUP TO SPIT IN. PT ARGUING OVER MEDICATIONS HE WANTS TO TAKE BUT THE DR ISNT PUTTING IN AN ORDER FOR IT.
--- NOTE | 2019-02-08 14:40 | NUR ---
PT ASKED FOR NAUSEA MEDICATION. MD AWARE.
--- NOTE | 2019-02-08 15:16 | NUR ---
RN @BEDSIDE FOR MED ADMINISTRATION. PT REQUESTING A PHONE TO ARRANGE FOR DC TOMORROW AFTER BA EXPIRES AT 0700 ON 02/09/19.
--- NOTE | 2019-02-08 16:53 | NUR ---
V/S CHECKED. RN & CHARGE NURSE AWARE OF FEVER. BLANKETS REMOVED, ONLY 1 SHEET & 1 BLANKET REMAIN.
--- NOTE | 2019-02-08 18:00 | NUR ---
dr leonardo @bedside. 225CC output flushed, new urinal @bedside for ua sample. no change in mentation noted since start of shift. pt c/o headache for long time. tymp temp rechecked at 100.6.
--- NOTE | 2019-02-08 18:23 | NUR ---
pt refused spinal tap & repeat head catscan. lab @bedside for draw + cultures. ua sent. pt refusing peg feeding at this time d/t "upset stomach". pt tearful from headache; requesting more lortab.
[2019-02-08 18:33] LABS: URINE BILIRUBIN - DIPSTICK NEGATIVE (NEGATIVE); URINE BLOOD DIPSTICK TRACE-INTACT (NEGATIVE); URINE COLOR YELLOW; URINE GLUCOSE - DIPSTICK NEGATIVE (NEGATIVE); URINE KETONE NEGATIVE (NEGATIVE); URINE NITRITE - DIPSTICK NEGATIVE (Negative); URINE PROTEIN - DIPSTICK NEGATIVE (NEG-TRACE); URINE UROBILINOGEN - DIPSTICK 0.2 E.U./dL (0.2)
[2019-02-08 18:34] LABS: HEMATOCRIT 41.8 % (39.0-50.0); HEMOGLOBIN 13.1 g/dl (14.0-18.0); IMMATURE GRANULOCYTES 0.2 % (0.0-5.0); MEAN CELL VOLUME 87.3 fL CALC (80.0-100.0); MEAN CORPUSCULAR HGB 27.3 pG CALC (26.0-32.0); MEAN CORPUSCULAR HGB CONC 31.3 g/L CALC (32.0-36.0); NEUT# 6.7 thou/uL (1.82-7.42); RED BLOOD COUNT 4.79 mill/uL (4.70-6.10); RED CELL DISTRI WIDTH 17.1 % (11.5-15.5)
[2019-02-08 18:37] LABS: URINE LEUK ESTERASE LARGE (NEGATIVE)
[2019-02-08 18:46] LABS: URINE BACTERIA MODERATE hpf; URINE SQUAMOUS EPITHELIAL CELL FEW EPI/hpf (0-FEW); URINE WBC 20-50 WBC/hpf (0-5)
--- NOTE | 2019-02-08 19:01 | NUR ---
RECEIVED REPORT FROM RAMBO YANG.
[2019-02-08 19:28] LABS: ALBUMIN 3.9 g/dL (3.2-5.0); ALKALINE PHOSPHATASE 76 u/l (38-126); ANION GAP 13 (6-22 (CALC)); BUN 14 mg/dL (8-23); BUN/CREATININE RATIO 24 (12-20 (CALC)); CARBON DIOXIDE 27 mmol/l (22-30); CHLORIDE 105 mmol/l (95-108); CREATININE 0.6 mg/dL (0.7-1.3); GFR > 60 ML/MIN (>=60 (CALC)); GFR FOR AFR.AMER. > 60 ML/MIN (>=60 (CALC)); LIPASE 63 u/l (23-300); POTASSIUM 4.1 mmol/l (3.5-5.1); SGOT/AST 35 u/l (19-48); SODIUM 141 mmol/l (137-146); TOTAL PROTEIN 6.3 g/dL (6.3-8.2)
[2019-02-08 19:38] LABS: BILIRUBIN, TOTAL 1.3 mg/dL (0.0-1.4)
--- NOTE | 2019-02-08 20:28 | NUR ---
PT. MADE AWARE OF ADMISSION AND TRANSFER TO ICU, VERBALIZED UNDERSTANDING.
--- NOTE | 2019-02-08 20:48 | NUR ---
Admission Note Report Given to: MARVIN YANG Transported by: Wheelchair X Stretcher Transported with: X Nurse Transporter X Patent IV O2 Kitchenwhere Maker
[2019-02-08 20:55] VITALS: BP 137/79
--- NOTE | 2019-02-08 21:00 | NUR ---
REPORT RECEIVED FROM TREY BORJA. ADMISSION ASSESSMENT COMPLETED AT THIS TIME. LUNGS ARE CLEAR. ABDOMEN SOFT AND TENDER WITH PEG TUBE TO LUQ. SKIN IS HOT AND MOIST. C/O HEADACHE. RESPIRATIONS EVEN AND UNLABORED ON ROOM AIR. SKIN INTACT; HEELS HAVE BLANCHABLE REDNESS, BOGGY WITH SMALL ROUND DISCOLORATION TO LEFT HEEL. WILL ELEVATE AND APPLY BUNNY BOOTS. SLIGHT TREMOR NOTED R/T PARKINSONS. SPEECH IS VERY GARBLED; PT IS DIFFICULT TO UNDERSTAND AND VERY TALKATIVE WITH FREQUENT NEEDS. SAFETY MEASURES IN PLACE. CALL LIGHT WITHIN REACH.
[2019-02-08 21:10] VITALS: BP 120/73
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
[2019-02-08 22:00] VITALS: BP 125/69
--- NOTE | 2019-02-08 22:00 | NUR ---
PT TRANSPORTED TO ICU BED 5 WITH 3 STAFF MEMBERS VIA BED; PT AWAKE AND ALERT WITH NO DISTRESS. VOIDING IN BEDSIDE URINAL. ATTACHED TO MONITOR. WATER AND TOOTHETS PROVIDED PER REQUEST. OREINTED TO ROOM AND CALL LIGHT SYSTEM.
--- NOTE | 2019-02-08 22:00 | NUR ---
PT. TAKEN TO ICU VIA BED. NO C/O.
--- NOTE | 2019-02-08 23:46 | NUR ---
PT RESTING WITH EYES CLOSED IN SEMI FOWLERS. NEW ORDERS TO CONTINUE ZOSYN. DIETARY CONSULT PLACED FOR JEVITY THROUGH PEG TUBE.
[2019-02-09] VITALS (9 sets, daily range): BP systolic 98–137; BP diastolic 52–77
--- NOTE | 2019-02-09 00:15 | NUR ---
TYLENOL GIVEN FOR HEADACHE AND PEG TUBE FLUSHED WITH WATER. ZOSYN INFUSING AT THIS TIME WITHOUT DIFFICULTY; IV SITE APPEARS HEALTHY.
--- NOTE | 2019-02-09 02:05 | NUR ---
PT STATES THAT HE FEEDS HIMSELF AT HOME EVERY 4 HOURS AND REQUESTS A JEVITY BOLUS; 240 GIVEN WITH FLUSH AT THIS TIME. VS STABLE. NO OTHER REQUESTS OR CONCERNS AT THIS TIME.
--- NOTE | 2019-02-09 03:43 | NUR ---
LORTAB GIVEN FOR 04/14 HEADACHE. PT CONTINUES TO VOID IN SMALL FREQUENT AMOUNTS CLEAR YELLOW URINE.
--- NOTE | 2019-02-09 05:37 | NUR ---
COMPLETE BED BATH DONE AND LINENS CHANGED. PT DOING HIS OWN ORAL CARE. PT TELLS NURSE THIS MORNING THAT HE CHANGED HIS MIND AND GIVES PERMISSION FOR STAFF TO UPDATE ON CONDITION IF SHE CALLS.
--- NOTE | 2019-02-09 06:17 | NUR ---
JEVITY BOLUS GIVEN AND TYLENOL ADMINISTERED FOT TEMP OF 100.8; WILL REASSES.
--- NOTE | 2019-02-09 07:10 | NUR ---
SHIFT CHANGE REPORT, PT AWAKE ALERT AND ORIENTED, C/O ACHING HEADACHE @ 8/10 AT THIS TIME AND REQUESTING TO BE FED, HS NURSE REPORTED HE WAS FED AT 0600, PT WAS ADVISED IT WAS TOO SOON TO BE FED AGAIN BUT WILL HAVE IT AT THE EARLIEST TIME, ALL NEEDS ADDRESS, TELE MONITOR IN PLACE, BED IN LOWEST POSITION AND CALL TOLBERT IN REACH.
--- NOTE | 2019-02-09 07:19 | NUR ---
RESTING IN BED WITH EYES CLOSED, TEMP MEASURED = 99.8, WILL CONTINUE TO MONITOR.
--- NOTE | 2019-02-09 08:27 | NUR ---
PHYSICAL ASSESSMENT DONE, LEGS AND FEET MASSAGED AND MOINTURISED, HEELS OFFLOADED WITH PROTECTORS, REQUESTING ANALGESIC TO BE GIVEN AT SHORTER INTERVALS, ADVISED WILL ADDRESS CONCERN WITH MD. WILL CONTINUE TO MONITOR.
--- NOTE | 2019-02-09 10:03 | NUR ---
REQUESTING PAIN MED, REQUEST ADDRESSED, ALSO REQUESTING TO ASK MD TO GIVE HIM SOMETHING STRONGER FOR PAIN, ADVISED ABOUT LIVER AND KIDNEY FUNCTIONS AND RN WILL ASSESS PAIN LATER FOR EFFECTIVENESS. TEMP ELEVATED @ 100.2 AT THIS TIME, BLANKET REMOVED AND COOL COMPRESSES APPLIED TO FOREHEAD AND CHEST, WILL CONTINUE TO MONITOR.
--- NOTE | 2019-02-09 10:19 | NUR ---
LEATHER BELT MAKER CONTACTED TO CONSULT WITH PT FOR EDUCATION ON PEG TUBE FEED, STATED SHE WILL BE HERE ALLIE.
[2019-02-09] MEDS ORDERED: CIPROFLOXACN500 MG PO (10:48)
--- NOTE | 2019-02-09 12:32 | NUR ---
CALLED PETE TO GIVE REPORT, VENKAT ANSWERED AND STATED PT HAS TO BE ER-ER TRANSFER/ADMIT, ADVISED PT IS ED PT BUT JUST ON UNIT DUE TO LACK OF SPACE AND FOR CONTINUOUS MONITORING. REDIRECTED TO MR MICHELLE HERNANDEZ WHO WANTED TO KNOW WHEN PT WAS ACCEPTED TO THEIR FACILITY, ADVISED TO SPEAK WITH CM AND CALL WAS TRANSFERRED TO OUR CM.
--- NOTE | 2019-02-09 13:37 | NUR ---
recieved call from Jose Carlos at [facility] asking for notes on pt to aid in finding a bed for pt. current notes faxed to [facility] [phone].
--- NOTE | 2019-02-09 17:23 | NUR ---
TEMP ELEVATED @ 101.6 @ 1600, DR BEARDEN NOTIFIED AND ADVISED TO CONTINUE TO MONITOR, COLD PACKS APPLIED TO FACE, HEAD AND NECK.
--- NOTE | 2019-02-09 17:24 | NUR ---
REPORT CALLED TO KAYLI IN [facility], PT WILL BE TRANSFERRED MOMENTARILY TO THAT UNIT.
--- NOTE | 2019-02-09 17:45 | NUR ---
PT TRANSPORTED TO [facility] VIA STRETCHER ACCOMPIANED BY TREY PALACIO. VS DONE. PT SITUATED IN BED. NO C/O PAIN OR NEEDS. CALL LIGHT IN REACH. WILL CONTINUE TO MONITOR.
--- NOTE | 2019-02-09 18:15 | NUR ---
TRANSFERRED TO ROOM 271 VIA BED BY STAFF AFTER REPORT GIVEN TO KAYLI.
--- NOTE | 2019-02-09 18:31 | NUR ---
CALLED REGARDING PT TEMP OF 101.6. NEW ORDERS FOR TYLENOL RECIEVED. WILL CONTINUE TO MONITOR.
--- NOTE | 2019-02-09 19:05 | NUR ---
BEDSIDE REPORT RECEIVED FROM DEAN MILAN. PT RESTING IN BED SEMI FOWLERS; ALERT AND ORIENTED. C/O HEADAHCE AND REQUESTING PAIN MEDICATIONS AND JEVITY. RESPIRATIONS EVEN AND UNLABROED ON ROOM AIR. PLAN OF CARE REVIEWED. PT ENCOURAGED TO VERBALIZE CONCERNS. STATES UNDERSTANDING. SAFETY MEASURES IN PLACE. CALL LIGHT WITHIN REACH.
--- NOTE | 2019-02-09 21:25 | NUR ---
VALIUM AND LORTAB ADMINSTERED WITH HS MEDICATIONS AND PT REQUESTED TO HAVE ONE AND A HALF BOTTLES OF JEVITY GIVEN. ADMINSTERED WITH ZERO RESIDUAL. ONLY REQUEST AT THIS TIME IS FOR ANOTHER SHEET. PT REMAINS WITH LOW GRADE TEMP.
--- NOTE | 2019-02-09 23:32 | NUR ---
PT CALLED REQUESTING PAIN MEDICATION; REMINDED OF NEXT SCHEDULED TIME AND WRITTIN ON BOARD. REPOSITIONED AND COOL CLOTH APPLIED TO HEAD.
--- NOTE | 2019-02-10 00:25 | NUR ---
ZOSYN INFUSING AT THIS TIME WITHOUT DIFFICULTY; IV SITE APPEARS HEALTHY. PT AWAKENS SPONTANEOUSLY AND REQUESTS PAIN MEDICATION AGAIN. SAFETY MEASURES IN PLACE. CALL LIGHT WITHIN REACH.
--- NOTE | 2019-02-10 03:34 | NUR ---
PT USED CALL LIGHT REQUESTING LOTION BE APPLIED TO HIS OFFLOADED HEELS AND ASKING WHEN HIS NEXT JEVITY IS DUE BECAUSE HE IS HUNGRY.
[2019-02-10 03:52] VITALS: BP 118/69
--- NOTE | 2019-02-10 04:28 | NUR ---
PT RESTING IN BED WITH EYES CLOSED AND NO SIGNS OF DISTRESS. RESPIRATIONS EVEN AND UNLABORED ON ROOM AIR. VOIDING IN SMALL FREQUENT AMOUNTS. NO ACUTE CHANGES IN CONDITION THROUGHOUT THE NIGHT. SAFETY MEASURES IN PLACE. CALL LIGHT WITHIN REACH.
[2019-02-10 05:41] LABS: IMMATURE GRANULOCYTES 0.5 % (0.0-5.0); MEAN CELL VOLUME 89.2 fL CALC (80.0-100.0); MEAN CORPUSCULAR HGB 27.5 pG CALC (26.0-32.0); MEAN CORPUSCULAR HGB CONC 30.8 g/L CALC (32.0-36.0); NEUT# 4.42 thou/uL (1.82-7.42); RED BLOOD COUNT 4.37 mill/uL (4.70-6.10)
[2019-02-10 05:57] LABS: ALBUMIN 3.3 g/dL (3.2-5.0); ALKALINE PHOSPHATASE 42 u/l (38-126); AMYLASE 31 u/l (30-110); ANION GAP 11 (6-22 (CALC)); BILIRUBIN, TOTAL 1.3 mg/dL (0.0-1.4); BUN 16 mg/dL (8-23); BUN/CREATININE RATIO 29 (12-20 (CALC)); CARBON DIOXIDE 27 mmol/l (22-30); CHLORIDE 107 mmol/l (95-108); CREATININE 0.6 mg/dL (0.7-1.3); GFR > 60 ML/MIN (>=60 (CALC)); GFR FOR AFR.AMER. > 60 ML/MIN (>=60 (CALC)); LIPASE 68 u/l (23-300); MAGNESIUM 1.9 mg/dL (1.6-2.3); POTASSIUM 4.7 mmol/l (3.5-5.1); SGOT/AST 45 u/l (19-48); SODIUM 140 mmol/l (137-146); TOTAL PROTEIN 5.9 g/dL (6.3-8.2)
[2019-02-10 09:33] VITALS: BP 124/71
--- NOTE | 2019-02-10 10:00 | NUR ---
PT SITTING UP IN BED, IN AND OUT OF SLEEP; A/O X3; RESP EVEN AND UNLABORED ON ROOM AIR; C/O OF HEAD ACHE 04/14; MEDICATED PER EMAR; PEG TUBE FEED ADMINISTERED; NO RESIDUAL NOTED PRIOR TO FEED; HOB REMAIN ELEVATED; FLUSHED WITH H2O; #22G LFA, FLUSHED WELL, SITE APPEARS HEALTHY; FEET ELEVATED ON A PILLOW; NO S/S OF DISTRESS NOTED; CALL TOLBERT IN REACH; URINAL AT BEDSIDE; SAFETY PRECAUTION REINFORCE;
--- NOTE | 2019-02-10 12:08 | NUR ---
PT SITTING UP IN BED WATCHING TV; TEMP 99.6 ICE PACK APPLIED TO UNDER ARMS. BLANKETS REMOVED; WILL REASSESS TEMP. LEGS REMAIN ELEVATED; REMAIN NPO; CALL TOLBERT IN REACH;
--- NOTE | 2019-02-10 12:27 | NUR ---
PT VOIDED 300CC JULIANNA URINE; ASSISTED WITH ORAL CARE; LOTION APPLIED TO FEET; CALL TOLBERT IN REACH.
--- NOTE | 2019-02-10 13:20 | NUR ---
TEMP 99.5 MEDICATED WITH TYLENOL; TUBE FEED ADMINISTERED; 0 RESIDULA PRIOR TO FEED; HOB REMAIN ELEVATED; VOIDED 100CC CLEAR, JULIANNA URINE IN URINAL; CALL TOLBERT IN REACH.
--- NOTE | 2019-02-10 14:08 | NUR ---
PT IS RESTING IN BED WITH EYES CLOSED.
--- NOTE | 2019-02-10 14:17 | NUR ---
PT AMBULATING IN THE NICOLE WITH STAFF
--- NOTE | 2019-02-10 15:27 | NUR ---
PT INQUIRING WHEN HE GETS FED AGAIN. EXPLAINED THE TIMES. INFORMED TOO SOON. NOT DUE UNTIL 1700
[2019-02-10 16:00] VITALS: BP 143/79
--- NOTE | 2019-02-10 16:00 | NUR ---
PT IS RELAXING IN BED WITH NO DISTRESS NOTED. IV SITE IS FREE FROM REDNESS OR EDMEA.
--- NOTE | 2019-02-10 18:56 | NUR ---
TEMP OF NOW IS 98.1
--- NOTE | 2019-02-10 19:30 | NUR ---
PATIENT RESTING INBED WITH HOB ELEVATED. PATIENT IS AWAKE ALERT-ORIENTED TO PERSON AND PLACE. PATIENT IS ABLE TO SAY HIS BIRTHDATE. PATIENT WITH IV SITETTO LEFT FOREARM INTACT AND APPEARS HEALTHY AT THIS TIME. PEG TUBE TO LEFT ABD INTACT AND CLAMPED AT THIS TIME. PATIENT WITH MANY QUESTIONS ABOUT WHEN HE WILL TRANSFERRED. INFORMED PATIENT THAT THEY [facility] BUT NOTHING MORE WILL HAPPEN UNTIL TUESDAY. SAFETY PRECAUTIONS REINFORCED. CALL LIGHT IN REACH, WILL CONT TO MONITOR.
[2019-02-10 19:50] VITALS: BP 140/77
--- NOTE | 2019-02-10 22:01 | NUR ---
PATIENT RESTING IN BED WITH HOB ELEVATED. AWAKE ALERT AND ORIENTED TO PERSON AND PLACE. PATIENT C/O HEADACHE-8/10 ON PAIN SCALE. PATIENT MEDICATED WITH TYLENOL 650MG AND VALIUM 10MG VIA PEG TUBE ALONG WITH [facility] OTHER HS MEDS. JEVITY 1 CONTAINER GIVEN WITH H20 FLUSH. NO RESIDUAL PRIOR TO FEEDING AND MEDS. PATIENT PROVIDED WITH ORAL HYGEINE WITH TOOTHETTES,H20 AND MOUTHWASH. PATIENT INSTRUCTED TO LEAVE HOB ELEVATED FOR AT LEAST AN HOUR AFTER TUBE FEEDING. VERBALIZES UNDERSTANDING. CALL LIGHT IN REACH. WILL CONT TO MONITOR.
--- NOTE | 2019-02-11 01:03 | NUR ---
PATIENT RESTING IN BED. MEDICATED WITH LORTAB 7.5MG VIA PEG TUBE FOR PAIN AND THE RECEIVED 1 CONTAINER OF JEVITY 1.5 WITH H2O FLUSH. NO RESIDUAL PRIOR TO MEDS OR FEEDING. HOB ELEVATED FOR FEEDING. WILL REMAIN ELEVATED FOR AT LEAST 1HOUR AFTER FEED. SAFETY PRECAUTIONS REINFORCED. ASPIRATION PRECAUTIONS REINFORCED. CALL LIGHT IN REACH. WILL CONT TO MONITOR.
[2019-02-11 04:10] VITALS: BP 133/79
--- NOTE | 2019-02-11 05:07 | NUR ---
PATIENT APPEARS SLEEPING WITH HOB ELEVATED AND EYES CLOSED. RESP ARE EVEN AND UNLABORED. CALL LIGHT IN REACH. WILL CONT TO MONITOR.
--- NOTE | 2019-02-11 05:55 | NUR ---
PATIENT RESTING IN BED. PEG TUBE FEEDING-1 CONTAINER OF JEVITY AND H2O FLUSH GIVE. NO RESIDUAL-LORTAB 7.5/325 GIVEN FOR 7/10 PAIN SCALE. CALL LIGHT IN REACH. WILL CONT TO MONITOR.
[2019-02-11 07:48] VITALS: BP 150/96
--- NOTE | 2019-02-11 07:58 | NUR ---
SHIFT CHANGE REPORT, PT AWAKE ALERT AND ORIENTED SITTING UP ON SIDE OF BED, C/O NAUSEA AT THIS TIME AND ISSUE ADDRESSED, ASSISTED BACK TO HIGH FOWLERS POSITION, NO C/O PAIN AT THIS TIME, CALL TOLBERT IN REACH.
[2019-02-11 10:15] LABS: HEMATOCRIT 37.7 % (39.0-50.0); HEMOGLOBIN 11.7 g/dl (14.0-18.0); IMMATURE GRANULOCYTES 0.3 % (0.0-5.0); MEAN CELL VOLUME 87.9 fL CALC (80.0-100.0); MEAN CORPUSCULAR HGB 27.3 pG CALC (26.0-32.0); NEUT# 2.48 thou/uL (1.82-7.42); RED BLOOD COUNT 4.29 mill/uL (4.70-6.10); RED CELL DISTRI WIDTH 16.7 % (11.5-15.5)
[2019-02-11 10:39] LABS: ANION GAP 11 (6-22 (CALC)); BUN 18 mg/dL (8-23); BUN/CREATININE RATIO 35 (12-20 (CALC)); CARBON DIOXIDE 27 mmol/l (22-30); CHLORIDE 108 mmol/l (95-108); CREATININE 0.5 mg/dL (0.7-1.3); GFR > 60 ML/MIN (>=60 (CALC)); GFR FOR AFR.AMER. > 60 ML/MIN (>=60 (CALC)); SODIUM 142 mmol/l (137-146)
[2019-02-11 10:43] LABS: POTASSIUM 3.5 mmol/l (3.5-5.1)
--- NOTE | 2019-02-11 11:37 | NUR ---
RESTING IN BED AT THIS TIME, STATED HE SPOKE TO X- WHO SAID SHE WILL ACCEPT HIM AT HER HOME BUT ADVISED SHE WILL HAVE TO COME HERE IN PERSON AND DISCUSS THAT PLAN WITH CM AND MEDICAL STAFF AND IT IS NOT WITHIN OUR SCOPE TO CALL HER FOR ARRANGEMENTS. ALL OTHER NEEDS ADDRESSED, CALL TOLBERT IN REACH.
--- NOTE | 2019-02-11 13:08 | NUR ---
MEDICAL TEAM ROUNDED, DISCUSSED PLAN OF CARE.
--- NOTE | 2019-02-11 14:08 | NUR ---
PT C/O BEING HUNGRY, RESIDUAL > 60CC AT THIS TIME, ADVISED PT FEED WILL BE HELD AT THIS TIME DUE TO AMOUNT RESIDUAL.
[2019-02-11 15:15] VITALS: BP 137/85
--- NOTE | 2019-02-11 16:01 | NUR ---
AMBULATED HALLWAYS WITH SPINNING SUPERVISOR AND BACK TO ROOM, SETTLED IN BED, NO RESIDUAL AT THIS TIME AND FED, PAIN CONCERN ADDRESSED, WILL CONTINUE TO MONITOR.
--- NOTE | 2019-02-11 20:00 | NUR ---
PATIENT STTING UP IN THE RECLINER-AWAKE ALERT AND ORIENTEDX3. PATIENT WITH GARBLED SPEECH AND HARD TO UNDERSTAND. PATIENT WITH IV SITE TO LEFT FOREARM INTACT AND APPEARS HEALTHY. VOIDING QS JULIANNA URINE IN URINAL. PEG TUBE TO LEFT ABD INTACT. PATIENT WITH 20CC RESIDUEL PRIOR TO MEDS AND TUBE FEEDING. PATIENT MEDICATED WITH VALIUM 10MG AND LORTAB 7.5MG GIVEN ALONG WITH OTHER HS MEDS. JEVITY 1.5 1 CONTAINER GIVEN WITH H2O FLUSH. PATIENT TOLERATED WELL. SAFETY PRECAUTIONS REINFORCED. CALL LIGHT IN REACH. WILL CONT TO MONITOR.
[2019-02-11 20:06] VITALS: BP 115/64
--- NOTE | 2019-02-12 01:10 | NUR ---
PATIENT RESTING IN BED. PATIENT WITH FREQUENT CALLS FOR VARIOUS NEEDS. WANTS PAIN MEDS, WANTS LAX BUT HAD LARGE BM YESTERDAY. WANTS FEEDING BUT TOO EARLY. PATIENT MEDICATED WITH LORTAB 7.5MG VIA PEG TUBE. NO RESIDUAL PRIOR TO FEED. JEVITY 1.5 1 CONTAINER GIVEN WITHOUT ANY DIFFICULTY WITH H20 FLUSH. HOB REMAINS ELEVATED AFTER FEEDING. REINFORCED WITH PATIENT NOT TO LOWER HOB FOR AT LEAST 1 HOURS. SAFETY PRECAUTIONS REINFORCED. CALL LIGHT IN REACH. WILL CONT TO MONITOR.
--- NOTE | 2019-02-12 03:44 | NUR ---
PATIENT CALLING ASKING FOR SOMETHING TO SLEEP. PATIENT INFORMED THAT IT IS TOO EARLY FOR PAIN MEDS AND THAT HE HAD HIS VALIUM LAST NIGHT. PATIENT THEN ASKING FOR MORE TUBE FEEDING-TOO EARLY FOR FEED AT THIS TIME. PATIENT REMAINS WITH HOB ELEVATED. PATIENT THEN SKING FOR ANTIVERT, COUGHMED, VISTARIL-NOT ORDERED AT THIS TIME. CALL LIGHT IN REACH. WILL CONT TO MONITOR.
[2019-02-12 04:09] VITALS: BP 114/70
[2019-02-12 05:18] LABS: HEMATOCRIT 35.6 % (39.0-50.0); HEMOGLOBIN 11.1 g/dl (14.0-18.0); MEAN CELL VOLUME 87.3 fL CALC (80.0-100.0); MEAN CORPUSCULAR HGB 27.2 pG CALC (26.0-32.0); MEAN CORPUSCULAR HGB CONC 31.2 g/L CALC (32.0-36.0); RED BLOOD COUNT 4.08 mill/uL (4.70-6.10); RED CELL DISTRI WIDTH 16.4 % (11.5-15.5)
[2019-02-12 05:39] LABS: ANION GAP 11 (6-22 (CALC)); BUN 21 mg/dL (8-23); BUN/CREATININE RATIO 45 (12-20 (CALC)); CARBON DIOXIDE 27 mmol/l (22-30); CHLORIDE 108 mmol/l (95-108); CREATININE 0.5 mg/dL (0.7-1.3); GFR > 60 ML/MIN (>=60 (CALC)); GFR FOR AFR.AMER. > 60 ML/MIN (>=60 (CALC)); MAGNESIUM 1.9 mg/dL (1.6-2.3); POTASSIUM 3.7 mmol/l (3.5-5.1); SODIUM 142 mmol/l (137-146)
--- NOTE | 2019-02-12 07:00 | NUR ---
REPORT RECEIVED FROM TREY KELLER;PT RESTING IN SEMI FOWLERS POSITION, A&O X3;INTRODUCED SELF TO PT AND POC DISCUSSED;PT REQUESTS MOM, EDUCATED PT ON LARGE BM REPORT FOR 02/11/19;RESPIRATIONS EVEN AND UNLABORED ON RA;ALL SAFETY PRECAUTIONS IN PLACE WITH BED IN THE LOWEST POSITION AND CALL LIGHT IN REACH;WILL CONTINUE TO MONITOR
[2019-02-12 08:23] VITALS: BP 129/60
--- NOTE | 2019-02-12 08:30 | NUR ---
PT RESTING IN SEMI FOWLERS POSITION, A&O X3;VS OBTAINED AND ASSESSMENT COMPLETED;PT REPORTS ABDOMINAL PAIN AND REQUESTS PAIN MEDICATION, PT RE-EDUCATED ON MEDICATION SCHEDULE AND VERBALIZES UNDERSTANDING;RESPIRATIONS EVEN AND UNLABORED,SHALLOW ON RA;ABDOMEN SOFT ON PALPATION AND ACTIVE IN ALL 4 QUADRANTS, LUQ PEG TUBE ADMINISTERED 30CC OF AIR TO CHECK FOR PATENCY.NO RESIDUAL NOTED;WEAK PEDAL PULSES;GENERALIZED BRUISING NOTED THROUGHOUT;#22G TO LFA FLUSHED AND PATENT,SITE APPEARS HEALTHY;ALL SAFETY PRECAUTIONS REINFORCED WITH PT INCLUDING ASPIRATION PRECAUTIONS;NPO DIET REINFORCED;FALL PRECAUTIONS IN PLACE WITH BED IN THE LOWEST POSITION AND CALL LIGHT IN REACH;WILL CONTINUE TO MONITOR
--- NOTE | 2019-02-12 09:52 | NUR ---
PHYSICAL THERAPY AT BEDSIDE
--- NOTE | 2019-02-12 11:10 | NUR ---
PT REPORTS ABDOMINAL AND HEADACHE PAIN RATING 9/10 ON THE PAIN SCALE AND REQUESTS PAIN MEDICATION;PT MEDICATED WITH PRN LORTAB 7.5 VIA PEG TUBE;WILL CONTINUE TO MONITOR FOR EFFECTIVENESS
--- NOTE | 2019-02-12 12:00 | NUR ---
PT OOB RESTING IN RECLINER;RESPIRATIONS EVEN AND UNLABORED ON RA;PT REPORTS PAIN HAS DECREASED FROM A 9/10 TO A 7/10 ON THE PAIN SCALE;IV SITE TO LFA REMAINS PATENT;TUBE FEEDING ADMINISTERED AT THIS TIME,0 RESIDUAL NOTED PRIOR TO FEEDING;PT DENIES ANY ADDITIONAL NEEDS;FALL PRECAUTIONS IN PLACE WITH CALL LIGHT IN REACH;WILL CONTINUE TO MONITOR
--- NOTE | 2019-02-12 12:52 | NUR ---
AT BEDSIDE DISCUSSING POC.
--- NOTE | 2019-02-12 15:18 | NUR ---
PT REPORTS HEADACHE PAIN RATING 8/10 ON THE PAIN SCALE AND REQUESTS PAIN MEDICATION;PT MEDICATED WITH PRN TYLENOL 650MG VIA PEG TUBE;WILL MONITOR FOR EFFECTIVENESS
[2019-02-12 15:38] VITALS: BP 121/74
--- NOTE | 2019-02-12 16:00 | NUR ---
PT AMBULATING THE NICOLE WITH A STEADY GAIT AND WALKER,ASSISTED BY FAMILY MEMBER.
--- NOTE | 2019-02-12 16:05 | NUR ---
PT RE-POSITIONED BACK INTO BED,FAMILY AT BEDSIDE;RESPIRATIONS EVEN AND UNLABORED ON RA;PT REPORTS THAT HEADACHE PAIN HAS DECREASED;IV SITE TO LFA REMAINS PATENT;ASSESSMENT REMAINS UNCHANGED AT THIS TIME;ENCOURAGED PT TO CALL FOR ASSISTANCE IF NEEDED;FALL PRECAUTIONS IN PLACE WITH CALL LIGHT IN REACH;WILL CONTINUE TO MONITOR
--- NOTE | 2019-02-12 16:30 | NUR ---
PATIENT RESTING IN BED WITH HOB ELEVATED. PATIENT IS AWAKE ALERT AND ORIENTEDX3 WITH REQUEST FOR MULTIPLE DIFFERENT MEDS-"SOMETHING FOR HIS STOMACH, ZOLOFT, ANTIVERT" AND MULTIPLE OTHERS. EXPLAINDED TO PATIENT HIS PAIN MEDS ARE ORDERED Q5H AND WERE LAST GIVEN AT APPROX 1730. PEG TUBE IS IN PLACE TO LEFT ABD AND CLAMPED. IV SITE TO LEFT FOREARM INTACT. SITE APPEARS HEALTHY AT THIS TIME. VOIDING JULIANNA URINE IN URINAL. PATIENT STATES THAT HE IS GOING TO REHAB TOMORROW-PATIENT WITH CASE MANAGEMENT ON HIS CASE. SAFETY PRECAUTIONS REINFORCED. CALL LIGHT IN REACH. WILL CONT TO MONITOR.
[2019-02-12 19:21] VITALS: BP 127/68
--- NOTE | 2019-02-12 21:22 | NUR ---
PATIENT RESTING IN BED WITH HOB ELEVATED. ALERT AND ORIENTED-CONT TO HAVE MULTIPLE COMPLINTS. PATIENT C/O NAUSEA AND ABD PAIN-MEDICATED WITH ZOFRAN 4MG VIA PEG TUBE. C/O HEADACHE-MEDICATED WITH TYLENOL 650MG VIA TTUBE. MEDICATED WITH VALIUM 10MG VIA TUBE FOR ANXIETY AND SLEEP. OTHER HS MEDS ALSO GIVEN VIA PEG TUBE. NO RESIDUAL PRIOR TO MEDS. JEVITY 1.5 TASNEEM-1 CONTAINER GIVEN VIA TUBE FOLLOWED BY H20 FLUSH. PATIENT INSTRUCTED TO KEEP HOB ELEVATED FOR ASPIRATION PRECAUTIONS. CALL LIGHT IN REACH. WILL CONT TO EVANGELINA.
--- NOTE | 2019-02-12 23:00 | NUR ---
PATIENT RESTING IN BED-SEEMS CALMER BUT ASKING IF HE CAN JUST LEAVE. INFORMED PATIENT THAT HE CAN GO AMA BUT NOT CLEAR OF ANY LEGALISSUES THAT MAY APPLY AT THIS TIME. REFERRED PATIENT TO CASE MANAGEMENT IN AM. PATIET MEDICATED LORTAB VIA PEG TUBE FOR 6/10 PAIN SCALE. SAFETY PRECAUTIONS REINFORCED. CALL LIGHT IN REACH.
--- NOTE | 2019-02-13 02:18 | NUR ---
PATIENT C/O PAIN-7/10 ON PAIN SCALE. MEDICATED DANIEL TYLENOL 650MG VIA PEG TUBE. NO RESIDUAL PRIOR TO FEEDING. JEVITY 1.5 1 CONTAINER GIVEN VIA PEG TUBE WITH TATIANA FLUSH. HOB ELEVATED FOR FEEDING. CALL LIGHT IN REACH. WILL CONT TO MONITOR.
--- NOTE | 2019-02-13 04:00 | NUR ---
PATIENT RESTINGIN BED WITH HOB ELEVATED AND EYES CLOSED. APPEARS SLEEPING-RESP ARE EVEN AND UNLABORED. CALL LIGHT IN REACH. WILL CONT TO MONITOR
--- NOTE | 2019-02-13 04:01 | NUR ---
APPEARS SLEEPING AT THIS TIME WITH HOB ELEVATED AND EYES CLOSED. RESP ARE EVEN AND UNLABORED. CALL LIGHT IN REACH. WILL CONT TO [place]O.
[2019-02-13 04:27] VITALS: BP 110/68
[2019-02-13 05:09] LABS: HEMATOCRIT 37.3 % (39.0-50.0); HEMOGLOBIN 11.7 g/dl (14.0-18.0); IMMATURE GRANULOCYTES 0.3 % (0.0-5.0); MEAN CORPUSCULAR HGB 27.6 pG CALC (26.0-32.0); MEAN CORPUSCULAR HGB CONC 31.4 g/L CALC (32.0-36.0); NEUT# 2.49 thou/uL (1.82-7.42); RED BLOOD COUNT 4.24 mill/uL (4.70-6.10); RED CELL DISTRI WIDTH 16.7 % (11.5-15.5)
[2019-02-13 05:32] LABS: ALBUMIN 3.3 g/dL (3.2-5.0); ALKALINE PHOSPHATASE 60 u/l (38-126); ANION GAP 12 (6-22 (CALC)); BUN 22 mg/dL (8-23); BUN/CREATININE RATIO 41 (12-20 (CALC)); CARBON DIOXIDE 25 mmol/l (22-30); CHLORIDE 107 mmol/l (95-108); CREATININE 0.5 mg/dL (0.7-1.3); GFR > 60 ML/MIN (>=60 (CALC)); GFR FOR AFR.AMER. > 60 ML/MIN (>=60 (CALC)); MAGNESIUM 1.9 mg/dL (1.6-2.3); POTASSIUM 3.9 mmol/l (3.5-5.1); SGOT/AST 29 u/l (19-48); SODIUM 140 mmol/l (137-146); TOTAL PROTEIN 5.6 g/dL (6.3-8.2)
[2019-02-13 05:34] LABS: BILIRUBIN, TOTAL 0.4 mg/dL (0.0-1.4)
--- NOTE | 2019-02-13 07:00 | NUR ---
SHIFT CHANGE REPORT, PT SLEEPING IN HIGH FOWLERS POSITION, BREATHING EVEN AND NON-LABORED, NO VISIBLE SIGN DISCOMFORT, CALL TOLBERT IN REACH.
[2019-02-13 08:03] VITALS: BP 122/74
--- NOTE | 2019-02-13 11:49 | NUR ---
Pt seen this am for treatment. He was OOB in chair, answered questions appropriately but difficult to understand. LE stretching done by therapist including calf/hamstring/hip add and single knee to chest stretches x3 reps. AROM including LAQ/hip flexion alternating and Active DF. Pt stood with min assist and CGA to return to sitting. Standing posture flexed with decrease DF noted on L. Gait 1x 60' and 1x 150' with RW and CGA, verbal cues to stand tall required. Pt left in chair with legs elevated and tray/phone/callbell in reach. [facility] 6 click remains at 13 SNF/IRF.
--- NOTE | 2019-02-13 12:00 | NUR ---
SHOWERED AND SITTING UP IN RECLINER, PAIN CONCERNS ADDRESSED.
[2019-02-13 15:10] VITALS: BP 142/92
--- NOTE | 2019-02-13 16:00 | NUR ---
PAIN CONCERN ADDRESSED, FED VIA PEG-TUBE AND TOLERATED WELL.FOR D/C TODAY BUT ORDERS NOT FINALIZED THEREFORE D/C IS DELAYED, WILL CONTINUE TO MONITOR.
--- NOTE | 2019-02-13 19:30 | NUR ---
PATIENT RESTING IN BED-AWAKE ALERT AND ORIENTEDX3-WANTS TO KNOW WHEN HE CAN HAVE PAIN MEDS AND WHEN HE CAN GET FEED. PATIENT WAS INFORMED OF NEXT TIME PAIN MED WAS DUE AT APPROX 2044 CORINE WITH HIS NEXT JEVITY FEED. VERBALIZES UNDERSTANDING. SALING LOCK TO LEFT FOREARM INTACT AND APPEARS HEALTHY AT THIS TIME.PATIENT STILL WITH THE GARBLED SPEECH. VOIDING IN URINAL. TOOTHETTES PROVIDED FOR ORAL HYGEINE. PATIENT REMAINS NPO. SAFETY PRECAUTIONS REINFORCED. CALL LIGHT IN REACH. WILL CONT TO MONITOR.
[2019-02-13 19:36] VITALS: BP 129/75
--- NOTE | 2019-02-13 21:18 | NUR ---
PATIENT RSTING IN BED WITH HOB ELEVATED FOR MEDS AND TUBE FEEDING. PATIENT MEDICATED WITH VALIUM 10MG FOR ANXIETY AND SLEEP, WITH LORTAB 7.5/325MG FOR 7/10 PAIN SCALE, MOM 30CC FOR CONSTIPATION, ZOFRAN 4MG FOR NAUSEA ALONG WITH SCHEDULED HS MEDS. NO RESIDUAL PRIOR TO ADMINISTRATION. PATIENT WAS THEN PROVIDED WITH JEVITY 1.5-1 CONTAINER FOLLOWED BY H20 FLUSH. PATIENT TO REMAIN AT 45% FOR AT LEAST 1 HOUR TO PREVENT ASPIRATION. PATEINT VERBALIZES UNDERSTANDING OF THE STATED. PATIENT VOIDING CLEAR YELLOW URINE IN URINAL. NON-PRODUCTIVE COUGH. CONT TO REFUSE HEEL PROTECTORS OR PILLOWS UNDER HIS HEELS. SAFETY PRECAUTIONS REINFORCED. CALL LIGHT IN REACH. WILL CONT TO MONITOR.
--- NOTE | 2019-02-13 23:11 | NUR ---
PATIENT CALLED WANTING TO KNOW WHEN HE IS GOING TO GET FEED AGAIN AND WHEN HE CAN HAVE HIS PAIN MEDS. PATIENT AGAIN TOLD THAT HE RECIEVED ALL OF HIS MEDS AND HIS LAST FEED AT APPROX 2100 TONIGHT. NO MEDS OR FEEDING IS DUE AT THIS TIME. CALL LIGHT IN REACH. WILL CONT TO MONITOR.
--- NOTE | 2019-02-14 01:33 | NUR ---
PATIENT RESTING IN BED WITH HOB ELEVATED. C/O PAIN 03/14-MEDICATED WITH TYLENOL 650MG VIA PEG TUBE FOLLOWED BY JEVITY 1.5 TASNEEM TUBE FEEDING FOLLOWED BY H20 FLUSH. HOB REMAINS ELEVATED AT THIS TIME. CALL LIGHT IN REACH. WILL CONT TO MONITOR.
[2019-02-14 04:02] VITALS: BP 109/67
--- NOTE | 2019-02-14 05:22 | NUR ---
PATIENT RESTING IN BED WITH HOB ELEVATED. CONT TO C/O PAIN-MEDICATED WITH LORTAB 7.5/325MG VIA TUBE. MEDICATED FOR NAUSEA WITH ZOFRAN 4MG VIA TUBE AND WITH VALIUM FOR ANXIETY VIA PEG TUBE. FLUSHED WITH H20. TOOTHETTES PROVIDED FOR ORAL HYGEINE. VOIDING QS IN URINAL. REMAINS WITH HOB ELEVATED. CALL LIGHT IN REACH. WILL CONT TO MONITOR.
--- NOTE | 2019-02-14 09:50 | NUR ---
PHYSICAL THERAPY AT BEDSIDE WORKING WITH PT.
[2019-02-14 09:55] VITALS: BP 128/81
--- NOTE | 2019-02-14 10:15 | NUR ---
PT SITTING UP IN RECLINER WITH LEGS ELEVATED; IVS PATENT; ZOSYN INFUSING; AM MEDS ADMINISTERED; TUBE FEED GIVEN; 20CC OR RESIDUAL NOTED; PT TOLERATED WELL; C/O OF NO PAIN; A/O X3; RESP EVEN AND UNLABORED ON ROOM AIR; VOICE NO CONCERNS; CALL TOLBERT IN REACH; SAFETY PRECAUTION REINFORCE; URINAL AT BEDSIDE;
--- NOTE | 2019-02-14 11:48 | NUR ---
PT ASSISTED BACK TO BED; BARRIER CREAM APPLIED TO BUTTOCKS PER PT'S REQ; HOB ELEVATED; URINAL AT BEDSIDE; CALL TOLBERT IN REACH.
[2019-02-14] MEDS ORDERED: LORTAB 5/3255 MG PO (12:36)
[2019-02-14] MEDS ORDERED: VALIUM5 MG PO (12:36)
--- NOTE | 2019-02-14 12:46 | NUR ---
PT SITTING UP IN BED WATCHING TV; DC INSTRUCTIONS GIVEN, VERBALIZE UNDERSTANDING;
--- NOTE | 2019-02-14 13:36 | NUR ---
PT MEDICATED WITH LORATAB FOR HEADACHE 04/14; TUBE FEED ADMINISTERED; ZERO RESIDUAL NOTED PRIOR TO FEED; IV REMOVED, CATH INTACT; D/C INSTRUCTIONS GIVEN TO PT; VERBALIZE UNDERSTANDING;
--- NOTE | 2019-02-14 13:44 | NUR ---
Discharge instructions given. Patient verbalizes understanding of same. Discharged in stable condition via Wheel[facility] to [facility] with *Other. All belongings sent with pt.
--- NOTE | 2019-02-14 14:03 | NUR ---
REPORT GIVEN TO LEE ANN AT [facility] ([phone])
--- NOTE | 2019-02-14 14:20 | NUR ---
Entered pt. room, Pt. supine in bed. Agreed to participate in therapy exercises. Began treatment w/ 10 overhead claps, 10 alternating bicep curls, heel slides x 10 bilaterall, hip abduction supin x 10 bilaterally, SLR x 10 bilaterall all were independent. Supine to sit (Mod A) VC to sit upright and for correct hand placement as he ascends to a standing position. Gait training 25 ft.(CGA) VC for pt. to lift head and take bigger steps. Stand to sit(MIN A) VC for safety precautions as he descends to a seated position. Pt. was seated in chair w/ call carrasco/ light in reach. Nurse was in room as exited.
== END 2019-02-14 13:42 | DRG 690 ==
LOC: ED 17:43 → ED-I 17:57 → ED 02-08 20:14 → ICU 02-08 20:15 → MS2 02-09 15:26
PROVIDERS: Emergency Medicine; Family Medicine; Nurse Practitioner Family; ADMIT Internal Medicine; ATTEND Internal Medicine Nephrology
DX: N39.0 Urinary tract infection, site not specified (principal); R45.851 Suicidal ideations; G20 Parkinson's disease; I10 Essential (primary) hypertension; G89.4 Chronic pain syndrome; I69.991 Dysphagia following unspecified cerebrovascular disease; R13.10 Dysphagia, unspecified; G43.909 Migraine, unspecified, not intractable, without status migrainosus; G25.81 Restless legs syndrome; D69.6 Thrombocytopenia, unspecified; R53.1 Weakness; B96.20 Unspecified Escherichia coli [E. coli] as the cause of diseases classified elsewhere; Z87.01 Personal history of pneumonia (recurrent); Z98.2 Presence of cerebrospinal fluid drainage device; Z93.1 Gastrostomy status
CPT/HCPCS: S0164

== ENCOUNTER 2019-03-04 18:32 | Observation (INO) | payer OTHER ==
[~2019-03-04] VITALS: Ht 188 cm; Wt 80.7 kg
[~2019-03-04 18:32] MED LIST changes: +CIPROFLOXACN500 MG PO; +LORTAB 5/3255 MG PO
--- NOTE | 2019-03-04 18:43 | NUR ---
PT TO ROOM VIA WC
[2019-03-04 19:53] LABS: HEMATOCRIT 43.1 % (39.0-50.0); IMMATURE GRANULOCYTES 0.2 % (0.0-5.0); MEAN CORPUSCULAR HGB 28.3 pG CALC (26.0-32.0); MEAN CORPUSCULAR HGB CONC 31.8 g/L CALC (32.0-36.0); NEUT# 2.76 thou/uL (1.82-7.42); RED BLOOD COUNT 4.84 mill/uL (4.70-6.10); RED CELL DISTRI WIDTH 16.5 % (11.5-15.5)
[2019-03-04 19:55] LABS: HEMOGLOBIN 13.7 g/dl (14.0-18.0)
[2019-03-04 20:05] LABS: ALKALINE PHOSPHATASE 87 u/l (38-126); AMYLASE 31 u/l (30-110); ANION GAP 14 (6-22 (CALC)); BUN 16 mg/dL (8-23); BUN/CREATININE RATIO 29 (12-20 (CALC)); CARBON DIOXIDE 29 mmol/l (22-30); CHLORIDE 103 mmol/l (95-108); CREATININE 0.6 mg/dL (0.7-1.3); GFR > 60 ML/MIN (>=60 (CALC)); GFR FOR AFR.AMER. > 60 ML/MIN (>=60 (CALC)); LIPASE 41 u/l (23-300); POTASSIUM 3.9 mmol/l (3.5-5.1); SGOT/AST 36 u/l (19-48); SODIUM 141 mmol/l (137-146)
[2019-03-04 20:10] LABS: ALBUMIN 4.3 g/dL (3.2-5.0); TOTAL PROTEIN 6.9 g/dL (6.3-8.2)
[2019-03-04 20:16] LABS: MYOGLOBIN 117 ng/mL (0 - 121)
[2019-03-04 21:24] LABS: URINE BILIRUBIN - DIPSTICK NEGATIVE (NEGATIVE); URINE BLOOD DIPSTICK NEGATIVE (NEGATIVE); URINE COLOR YELLOW; URINE GLUCOSE - DIPSTICK NEGATIVE (NEGATIVE); URINE KETONE TRACE mg/dL (NEGATIVE); URINE LEUK ESTERASE NEGATIVE (NEGATIVE); URINE NITRITE - DIPSTICK NEGATIVE (Negative); URINE PROTEIN - DIPSTICK NEGATIVE (NEG-TRACE); URINE SPECIFIC GRAVITY <=1.005; URINE UROBILINOGEN - DIPSTICK 0.2 E.U./dL (0.2)
--- NOTE | 2019-03-04 23:00 | NUR ---
DR TO BS TO DISCUSS POC. PT C/O HEADACHE. NAUSEA
--- NOTE | 2019-03-04 23:20 | NUR ---
MAG CITRATE AND TYLENOL THROUGH PEG TUBE. BSC TO BS. PT INSTRUCTED TO CALL WHEN NEED ASSISTANCE.
--- NOTE | 2019-03-04 23:56 | NUR ---
PT UP TO BSC. DOESN'T FEEL LIKE HE NEEDS TO DEFECATE. PT ENCOURAGED TO SIT ON COMMODE. ASSISTED TO BSC.
--- NOTE | 2019-03-05 01:15 | NUR ---
PT HAD SCANT BM. BEING ADMITTED NOW. VSS.
--- NOTE | 2019-03-05 01:23 | NUR ---
REPORT TO ANDSIMEON/NURSE/MED-SURG.
--- NOTE | 2019-03-05 01:40 | NUR ---
TO FLOOR VIA STRETCHER. MEDS RECONCILED. U/O TOTALED 675 CC OF URINE DURING VISIT. PT A/O.
[2019-03-05 01:50] VITALS: BP 119/78
--- NOTE | 2019-03-05 05:12 | NUR ---
Patient admitted to the floor from the ER@0300. Patient alert and oriented x 4. Patient speech is garbled. Patient want's pain medicine. Patient wants to eat. Patient was given morphine in the er and is NPO due to not having a bowel movement in 4 days. Patient was given mag citrate in the er through his peg tube. Patient has peg tube feeding but does not know what he takes. Breath sounds clear. Abdomen soft. Peg tube is intact with no residual noted. Patient multiple red mendoza on his arms and legs. No S&S of distress. Will continue to monitor patient progress.
[2019-03-05 07:40] VITALS: BP 143/77
--- NOTE | 2019-03-05 07:40 | NUR ---
ASSESSMENT IS COMPLETED: IV SITE IS FREE FROM REDNESS OR EDEMA. HR IS REG,PULSES ARE STRONG X4, ABD IS SOFT WITH ACTIVE BS. BREATH SOUNDS ARE CLEAR BILATERALLY. CONTINUE TO OBSERVE AND MONITOR.
--- NOTE | 2019-03-05 10:31 | NUR ---
ABLE TO FEED PT THROUGH PEG TUBE ASKED ABOUT MEDICATIONS WILL HAVE TO WAIT ON THE MD TO PLACE MEDS
--- NOTE | 2019-03-05 12:00 | NUR ---
PT IS RELAXING IN THE CHAIR HAD A LARGE BM LOOSE CONTINUE TO OSBERVE AND MONITOR WAITING ON FAMILY.
--- NOTE | 2019-03-05 13:50 | NUR ---
IV SITE DISCONTINUED CATHETER INTACT. DISCHARGE INSTRUCTIONS READY FOR PT WHEN FAMILY COMES
--- NOTE | 2019-03-05 14:30 | NUR ---
Discharge instructions given. Patient verbalizes understanding of same. Discharged in stable condition via Wheelchair to Home with family. All belongings sent with pt.
--- NOTE | 2019-03-05 14:30 | NUR ---
DISCHARGE INSTRUCTIONS. IV SITE DISCONTINUED CATHETER INTACT. NO REDNESS OR EDEMA. FAMILY IN THE ROOM TO TRANSPORT PT HOME.
== END 2019-03-05 14:38 | disposition home or self-care (01) | DRG 389 ==
LOC: ED 18:32 → ED-I 18:46 → ED 03-05 00:40 → MS2 03-05 00:41
PROVIDERS: Emergency Medicine; ADMIT Internal Medicine Nephrology; ATTEND Internal Medicine Nephrology
DX: K56.41 Fecal impaction (principal); G81.94 Hemiplegia, unspecified affecting left nondominant side; E46 Unspecified protein-calorie malnutrition; G91.9 Hydrocephalus, unspecified; I10 Essential (primary) hypertension; M19.90 Unspecified osteoarthritis, unspecified site; G20 Parkinson's disease; F41.9 Anxiety disorder, unspecified; G25.81 Restless legs syndrome; G89.4 Chronic pain syndrome; I69.991 Dysphagia following unspecified cerebrovascular disease; R13.10 Dysphagia, unspecified; G43.909 Migraine, unspecified, not intractable, without status migrainosus; Z98.2 Presence of cerebrospinal fluid drainage device; Z93.1 Gastrostomy status
CPT/HCPCS: S0164

== ENCOUNTER 2019-03-14 10:53 | Emergency (ER) | payer OTHER, MEDICARE ==
[~2019-03-14] VITALS: Ht 188 cm; Wt 180.0 kg
[2019-03-14 14:27] VITALS: BP 117/83
== END 2019-03-14 14:26 | disposition home or self-care (01) | DRG 395 ==
LOC: ED 10:53
PROC: 0D20XUZ Change Feeding Device in Upper Intestinal Tract, External Approach (ICD-10-PCS; principal; 2019-03-14)
DX: K94.23 Gastrostomy malfunction (principal); I10 Essential (primary) hypertension; G20 Parkinson's disease; Z98.2 Presence of cerebrospinal fluid drainage device; Y83.3 Surgical operation with formation of external stoma as the cause of abnormal reaction of the patient, or of later complication, without mention of misadventure at the time of the procedure

== ENCOUNTER 2019-04-18 12:59 | Emergency (ER) | payer OTHER ==
[~2019-04-18] VITALS: Ht 188 cm; Wt 80.0 kg
[2019-04-18 13:55] LABS: HEMATOCRIT 41.9 % (39.0-50.0); HEMOGLOBIN 13.4 g/dl (14.0-18.0); IMMATURE GRANULOCYTES 0.2 % (0.0-5.0); MEAN CELL VOLUME 89.3 fL CALC (80.0-100.0); MEAN CORPUSCULAR HGB 28.6 pG CALC (26.0-32.0); NEUT# 3.17 thou/uL (1.82-7.42); RED BLOOD COUNT 4.69 mill/uL (4.70-6.10); RED CELL DISTRI WIDTH 14.2 % (11.5-15.5)
[2019-04-18 14:14] LABS: ALBUMIN 4.1 g/dL (3.2-5.0); ALKALINE PHOSPHATASE 74 u/l (38-126); ANION GAP 12 (6-22 (CALC)); BILIRUBIN, TOTAL 0.6 mg/dL (0.0-1.4); BUN 16 mg/dL (8-23); BUN/CREATININE RATIO 23 (12-20 (CALC)); CARBON DIOXIDE 26 mmol/l (22-30); CHLORIDE 109 mmol/l (95-108); CREATININE 0.7 mg/dL (0.7-1.3); ETHYL ALCOHOL 0 mg/dl (0-30); GFR > 60 ML/MIN (>=60 (CALC)); GFR FOR AFR.AMER. > 60 ML/MIN (>=60 (CALC)); SGOT/AST 25 u/l (19-48); SODIUM 143 mmol/l (137-146); TOTAL PROTEIN 6.6 g/dL (6.3-8.2)
[2019-04-18] MEDS ORDERED: LINZESS72 MCG PEG (15:05)
[2019-04-18] MEDS ORDERED: SEROQUEL25 MG PEG (15:07)
[2019-04-18] MEDS ORDERED: MELATONIN3 M3 PO (15:08)
[2019-04-18] MEDS ORDERED: PREVACID30 M1 PEG (15:09)
[2019-04-18] MEDS ORDERED: RANITIDINE75 MG/5 ML PO (15:10)
[2019-04-18] MEDS ORDERED: DILTIAZEM30 MG PO (15:11)
[2019-04-18 17:21] LABS: URINE BILIRUBIN - DIPSTICK NEGATIVE (NEGATIVE); URINE BLOOD DIPSTICK NEGATIVE (NEGATIVE); URINE COLOR YELLOW; URINE GLUCOSE - DIPSTICK NEGATIVE (NEGATIVE); URINE KETONE NEGATIVE (NEGATIVE); URINE LEUK ESTERASE NEGATIVE (NEGATIVE); URINE NITRITE - DIPSTICK NEGATIVE (Negative); URINE PROTEIN - DIPSTICK NEGATIVE (NEG-TRACE); URINE UROBILINOGEN - DIPSTICK 0.2 E.U./dL (0.2)
[2019-04-18 17:24] LABS: BARBITURATES NEGATIVE (NEGATIVE); COCAINE NEGATIVE (NEGATIVE); METHADONE NEGATIVE (NEGATIVE); TETRAHYDROCANNABIONOL NEGATIVE (NEGATIVE); TRICYLIC ANTIDEPRESSANTS NEGATIVE (NEGATIVE)
[2019-04-18 17:25] LABS: OXCYCODONE NEGATIVE (NEGATIVE)
[2019-04-18 22:46] VITALS: BP 138/81
== END 2019-04-18 22:30 | DRG 951 ==
LOC: ED 12:59
PROVIDERS: Emergency Medicine
DX: R45.850 Homicidal ideations (principal); Y92.009 Unspecified place in unspecified non-institutional (private) residence as the place of occurrence of the external cause; R45.1 Restlessness and agitation; G20 Parkinson's disease; I10 Essential (primary) hypertension
CPT/HCPCS: S0166

== ENCOUNTER 2019-07-31 18:05 | Observation (INO) | payer OTHER, MEDICARE ==
[~2019-07-31] VITALS: Ht 188 cm; Wt 80.0 kg
[~2019-07-31 18:05] MED LIST changes: +MELATONIN3 M3 PO; +PREVACID30 M1 PEG; +RANITIDINE75 MG/5 ML PO; +SEROQUEL25 MG PEG
[2019-07-31] MEDS ORDERED: TRAZODONE50 MG PO (19:25)
[2019-07-31] MEDS ORDERED: SERTRALINE HCL50 MG PO (19:26)
[2019-07-31] MEDS ORDERED: LORTAB 1010 MG PO (19:27)
[2019-07-31] MEDS ORDERED: CARB/LEVO1 TA4 PO (19:27)
[2019-07-31 21:32] LABS: URINE BILIRUBIN - DIPSTICK NEGATIVE (NEGATIVE); URINE BLOOD DIPSTICK NEGATIVE (NEGATIVE); URINE COLOR YELLOW; URINE GLUCOSE - DIPSTICK NEGATIVE (NEGATIVE); URINE KETONE NEGATIVE (NEGATIVE); URINE LEUK ESTERASE NEGATIVE (NEGATIVE); URINE NITRITE - DIPSTICK NEGATIVE (Negative); URINE PH 7.5 (4.5-8.0); URINE PROTEIN - DIPSTICK NEGATIVE (NEG-TRACE); URINE UROBILINOGEN - DIPSTICK 0.2 E.U./dL (0.2)
[2019-07-31 22:01] LABS: HEMATOCRIT 39.8 % (39.0-50.0); HEMOGLOBIN 12.7 g/dl (14.0-18.0); MEAN CORPUSCULAR HGB 28.7 pG CALC (26.0-32.0); MEAN CORPUSCULAR HGB CONC 31.9 g/L CALC (32.0-36.0); RED BLOOD COUNT 4.42 mill/uL (4.70-6.10); RED CELL DISTRI WIDTH 14.6 % (11.5-15.5)
[2019-07-31 22:23] LABS: ALKALINE PHOSPHATASE 89 u/l (38-126); ANION GAP 13 (6-22 (CALC)); BILIRUBIN, TOTAL 0.6 mg/dL (0.0-1.4); BUN 20 mg/dL (8-23); BUN/CREATININE RATIO 37 (12-20 (CALC)); CARBON DIOXIDE 27 mmol/l (22-30); CHLORIDE 105 mmol/l (95-108); CREATININE 0.6 mg/dL (0.7-1.3); GFR > 60 ML/MIN (>=60 (CALC)); GFR FOR AFR.AMER. > 60 ML/MIN (>=60 (CALC)); SGOT/AST 30 u/l (19-48); SODIUM 141 mmol/l (137-146); TOTAL PROTEIN 6.8 g/dL (6.3-8.2)
[2019-07-31 22:26] LABS: IMMATURE GRANULOCYTES 0.3 % (0.0-5.0); NEUT# 2.04 thou/uL (1.82-7.42)
[2019-07-31 22:35] LABS: MYOGLOBIN 118 ng/mL (0 - 121)
[2019-08-01 02:50] VITALS: BP 128/74
[2019-08-01 08:00] VITALS: BP 126/72
[2019-08-01 14:45] VITALS: BP 119/72
[2019-08-01 18:41] LABS: HEMATOCRIT 37.5 % (39.0-50.0); MEAN CELL VOLUME 89.5 fL CALC (80.0-100.0); MEAN CORPUSCULAR HGB 28.6 pG CALC (26.0-32.0); RED BLOOD COUNT 4.19 mill/uL (4.70-6.10); RED CELL DISTRI WIDTH 14.5 % (11.5-15.5)
[2019-08-01 18:44] LABS: IMMATURE GRANULOCYTES 0.3 % (0.0-5.0); NEUT# 2.59 thou/uL (1.82-7.42)
[2019-08-01 18:57] LABS: ANION GAP 12 (6-22 (CALC)); BUN 16 mg/dL (8-23); BUN/CREATININE RATIO 34 (12-20 (CALC)); CARBON DIOXIDE 24 mmol/l (22-30); CHLORIDE 107 mmol/l (95-108); CREATININE 0.5 mg/dL (0.7-1.3); GFR > 60 ML/MIN (>=60 (CALC)); GFR FOR AFR.AMER. > 60 ML/MIN (>=60 (CALC)); SODIUM 139 mmol/l (137-146)
[2019-08-01 19:40] VITALS: BP 135/81
[2019-08-02 03:54] VITALS: BP 111/65
[2019-08-02 05:56] LABS: HEMATOCRIT 37.6 % (39.0-50.0); MEAN CORPUSCULAR HGB 29.1 pG CALC (26.0-32.0); MEAN CORPUSCULAR HGB CONC 31.9 g/L CALC (32.0-36.0); RED BLOOD COUNT 4.13 mill/uL (4.70-6.10); RED CELL DISTRI WIDTH 14.6 % (11.5-15.5)
[2019-08-02 06:15] LABS: IMMATURE GRANULOCYTES 0.2 % (0.0-5.0); NEUT# 3.49 thou/uL (1.82-7.42)
[2019-08-02 06:28] LABS: ANION GAP 14 (6-22 (CALC)); BUN 18 mg/dL (8-23); BUN/CREATININE RATIO 35 (12-20 (CALC)); CARBON DIOXIDE 24 mmol/l (22-30); CHLORIDE 105 mmol/l (95-108); CREATININE 0.5 mg/dL (0.7-1.3); GFR > 60 ML/MIN (>=60 (CALC)); GFR FOR AFR.AMER. > 60 ML/MIN (>=60 (CALC)); POTASSIUM 3.9 mmol/l (3.5-5.1); SODIUM 139 mmol/l (137-146)
[2019-08-02 08:07] VITALS: BP 111/61
[2019-08-02 16:00] VITALS: BP 121/73
[2019-08-02 19:04] VITALS: BP 104/65
[2019-08-03 04:52] VITALS: BP 101/56
[2019-08-03 05:49] LABS: HEMATOCRIT 36.6 % (39.0-50.0); HEMOGLOBIN 11.8 g/dl (14.0-18.0); MEAN CORPUSCULAR HGB 29.4 pG CALC (26.0-32.0); MEAN CORPUSCULAR HGB CONC 32.2 g/L CALC (32.0-36.0); RED BLOOD COUNT 4.02 mill/uL (4.70-6.10); RED CELL DISTRI WIDTH 14.6 % (11.5-15.5)
[2019-08-03 08:45] VITALS: BP 105/66
[2019-08-03 18:55] VITALS: BP 129/66
[2019-08-04 03:30] VITALS: BP 111/61
[2019-08-04 05:17] LABS: HEMATOCRIT 36.6 % (39.0-50.0); HEMOGLOBIN 11.8 g/dl (14.0-18.0); IMMATURE GRANULOCYTES 0.3 % (0.0-5.0); MEAN CELL VOLUME 90.8 fL CALC (80.0-100.0); MEAN CORPUSCULAR HGB 29.3 pG CALC (26.0-32.0); MEAN CORPUSCULAR HGB CONC 32.2 g/L CALC (32.0-36.0); NEUT# 2.28 thou/uL (1.82-7.42); RED BLOOD COUNT 4.03 mill/uL (4.70-6.10); RED CELL DISTRI WIDTH 14.6 % (11.5-15.5)
[2019-08-04 05:29] LABS: ANION GAP 12 (6-22 (CALC)); BUN 22 mg/dL (8-23); BUN/CREATININE RATIO 44 (12-20 (CALC)); CARBON DIOXIDE 28 mmol/l (22-30); CHLORIDE 102 mmol/l (95-108); CREATININE 0.5 mg/dL (0.7-1.3); GFR > 60 ML/MIN (>=60 (CALC)); GFR FOR AFR.AMER. > 60 ML/MIN (>=60 (CALC)); MAGNESIUM 1.9 mg/dL (1.6-2.3); POTASSIUM 3.7 mmol/l (3.5-5.1); SODIUM 138 mmol/l (137-146)
[2019-08-04 08:00] VITALS: BP 109/56
[2019-08-04 15:28] VITALS: BP 106/59
[2019-08-04 19:25] VITALS: BP 132/57
[2019-08-05 03:40] VITALS: BP 118/55
[2019-08-05 05:15] LABS: HEMATOCRIT 35.4 % (39.0-50.0); HEMOGLOBIN 11.2 g/dl (14.0-18.0); MEAN CORPUSCULAR HGB 28.8 pG CALC (26.0-32.0); MEAN CORPUSCULAR HGB CONC 31.6 g/L CALC (32.0-36.0); RED BLOOD COUNT 3.89 mill/uL (4.70-6.10); RED CELL DISTRI WIDTH 14.5 % (11.5-15.5)
[2019-08-05 08:00] VITALS: BP 106/62
[2019-08-05 16:25] VITALS: BP 115/67
[2019-08-05 19:05] VITALS: BP 159/58
[2019-08-06 05:11] VITALS: BP 148/71
[2019-08-06 08:30] VITALS: BP 102/61
[2019-08-06 16:41] VITALS: BP 112/65
[2019-08-06 20:32] VITALS: BP 96/55
[2019-08-07 03:24] VITALS: BP 110/65
[2019-08-07 04:58] LABS: HEMATOCRIT 37.2 % (39.0-50.0); HEMOGLOBIN 11.6 g/dl (14.0-18.0); IMMATURE GRANULOCYTES 0.2 % (0.0-5.0); MEAN CELL VOLUME 91.6 fL CALC (80.0-100.0); MEAN CORPUSCULAR HGB 28.6 pG CALC (26.0-32.0); MEAN CORPUSCULAR HGB CONC 31.2 g/L CALC (32.0-36.0); NEUT# 2.68 thou/uL (1.82-7.42); RED BLOOD COUNT 4.06 mill/uL (4.70-6.10); RED CELL DISTRI WIDTH 14.3 % (11.5-15.5)
[2019-08-07 05:09] LABS: ANION GAP 13 (6-22 (CALC)); BUN 28 mg/dL (8-23); BUN/CREATININE RATIO 43 (12-20 (CALC)); CARBON DIOXIDE 24 mmol/l (22-30); CHLORIDE 106 mmol/l (95-108); CREATININE 0.6 mg/dL (0.7-1.3); GFR > 60 ML/MIN (>=60 (CALC)); GFR FOR AFR.AMER. > 60 ML/MIN (>=60 (CALC)); POTASSIUM 3.9 mmol/l (3.5-5.1); SODIUM 139 mmol/l (137-146)
[2019-08-07 08:39] VITALS: BP 112/68
[2019-08-07 15:00] VITALS: BP 100/60
[2019-08-07 19:00] VITALS: BP 112/53
[2019-08-08 04:05] VITALS: BP 111/51
[2019-08-08 08:40] VITALS: BP 112/70
[2019-08-08 15:49] VITALS: BP 102/59
[2019-08-08 18:44] VITALS: BP 102/57
[2019-08-09 03:20] VITALS: BP 100/58
[2019-08-09 07:54] VITALS: BP 108/59
[2019-08-09 09:17] VITALS: BP 101/60
[2019-08-09] MEDS ORDERED: TOPIRAMATE25 MG PO (10:30)
[2019-08-09 15:11] VITALS: BP 110/70
== END 2019-08-09 16:28 | DRG 641 ==
LOC: ED 18:05 → ED-I 08-01 02:00 → ED 08-01 02:20 → MS2 08-01 02:21
PROVIDERS: Emergency Medicine; Nurse Practitioner Family; ADMIT Internal Medicine; ATTEND Internal Medicine
PROC: 0T9B70Z Drainage of Bladder with Drainage Device, Via Natural or Artificial Opening (ICD-10-PCS; principal; 2019-07-31)
DX: R62.7 Adult failure to thrive (principal); D61.818 Other pancytopenia; I10 Essential (primary) hypertension; G20 Parkinson's disease; R13.10 Dysphagia, unspecified; M19.90 Unspecified osteoarthritis, unspecified site; G89.4 Chronic pain syndrome; K59.00 Constipation, unspecified; M62.81 Muscle weakness (generalized); G43.909 Migraine, unspecified, not intractable, without status migrainosus; H04.123 Dry eye syndrome of bilateral lacrimal glands; R47.1 Dysarthria and anarthria; Z93.1 Gastrostomy status; Z91.19 Patient's noncompliance with other medical treatment and regimen; Z74.2 Need for assistance at home and no other household member able to render care; Z98.2 Presence of cerebrospinal fluid drainage device; Z68.22 Body mass index [BMI] 22.0-22.9, adult; Z79.899 Other long term (current) drug therapy
CPT/HCPCS: G0378